=== PATIENT | female | born 1940 | race Caucasian/White ===

== ENCOUNTER 2018-12-18 13:17 | Emergency (ER) | payer MEDICARE ==
[~2018-12-18] VITALS: Ht 167.6 cm; Wt 120.0 kg
[2018-12-18] MEDS ORDERED: LORazepam 1 MG tablet PO ONE (14:05)
[2018-12-18] MEDS ORDERED: normal saline 1000ML IV soln IVB ONE (14:05)
[2018-12-18 14:35] LABS: CLARITY,URINE CLOUDY (Clear); COLOR,URINE YELLOW (Yellow); GLUCOSE, URINE NEGATIVE (Neg); KETONES,URINE NEGATIVE (Neg); LEUKOCYTE ESTERASE ,URINE NEGATIVE (Neg); NITRITES, URINE NEGATIVE (Neg); OCCULT BLOOD,URINE MODERATE (Neg); PH,URINE 5.5 (4.8-8.0); PROTEIN,URINE 30 mg/dl (Neg); UROBILINOGEN,URINE 0.2 E.U/dL (0.2-1.0)
[2018-12-18 14:43] LABS: UA COLLECTION TYPE STRAIGHT CATH
[2018-12-18 14:46] LABS: HYALINE CASTS 0-3 /LPF (NEGATIVE); MUCUS STRANDS FEW /LPF (Neg); RBC,URINE 50-100 /HPF (0-2); SQUAMOUS EPITHELIAL CELL,UR MODERATE /LPF (FEW); WBC,URINE 30-50 /HPF (0-4)
[2018-12-18 14:47] LABS: BACTERIA,URINE 2+ /HPF (Neg)
[2018-12-18 14:50] LABS: URINE AMPHETAMINE SCREEN NEGATIVE (Neg); URINE BARBITUATE SCREEN NEGATIVE (Neg); URINE BENZODIAZEPINES SCREEN NEGATIVE (Neg); URINE CANNABINOID SCREEN NEGATIVE (Neg); URINE COCAINE SCREEN NEGATIVE (Neg); URINE METHADONE SCREEN NEGATIVE (Neg); URINE OPIATE SCREEN NEGATIVE (Neg); URINE PHENCYCLIDINE SCREEN NEGATIVE (Neg)
[2018-12-18 14:54] LABS: BASOPHILS % (AUTO) 0.4 % (0-1); EOSINOPHILS % (AUTO) 0.4 % (0-6); HEMATOCRIT 39.5 % (35.0-45.0); HEMOGLOBIN 13.3 g/dl (12.0-16.0); LYMPHOCYTES # (AUTO) 0.9 X10'3 (1.1-4.8); LYMPHOCYTES % (AUTO) 8.9 % (21-51); MEAN CORPUSCULAR HEMOGLOBIN 32.9 PG (27.0-31.0); MEAN CORPUSCULAR HGB CONC 33.7 g/dL (33.0-36.5); MEAN CORPUSCULAR VOLUME 97.6 FL (78-98); MEAN PLATELET VOLUME 8.3 FL (7.4-10.4); MONOCYTES # (AUTO) 0.3 X10'3 (0-0.9); MONOCYTES % (AUTO) 3.1 % (2-12); NEUTROPHILS % (AUTO) 87.2 % (42-75); PLATELET COUNT 243 X10'3 (140-440); RED BLOOD COUNT 4.05 X10'6 (4.20-5.60); RED CELL DISTRIBUTION WIDTH 14.2 % (11.5-14.5); WHITE BLOOD COUNT 10.3 X10'3 (4.5-11.0)
--- NOTE | 2018-12-18 15:06 | NUR ---
Called in report to APS. Report was given to APS rep [place] at [phone]. Written report was also filled out.
[2018-12-18 15:07] LABS: ALANINE AMINOTRANSFERASE 13 U/L (12-78); ALBUMIN 3.1 G/DL (3.4-5.0); ALBUMIN/GLOBULIN RATIO 0.7 (1.1-1.5); ALKALINE PHOSPHATASE 97 IU/L (46-116); ANION GAP 9 (8-16); ASPARTATE AMINO TRANSFERASE 16 U/L (10-37); BILIRUBIN,TOTAL 0.7 MG/DL (0.1-1.0); BLOOD UREA NITROGEN 34 MG/DL (7-18); BUN/CREATININE RATIO 50.7 (6.6-38.0); CHLORIDE 109 MMOL/L (99-107); CREATININE 0.67 MG/DL (0.40-0.90); ETHANOL < 0.010 GM/DL (0.0-0.010); GLUCOSE 99 MG/DL (70-104); SODIUM 143 MMOL/L (135-145); TOTAL CARBON DIOXIDE 25.1 MMOL/L (24-32); TOTAL PROTEIN 7.5 G/DL (6.4-8.2); eGFR 86 ML/MIN
--- NOTE | 2018-12-18 16:01 | NUR ---
ESTEFANI Miller aware Step daughter at bedside, stated no need for further social media campaign manager at this time.
--- NOTE | 2018-12-18 16:46 | NUR ---
Telephone call to Margoth FARLEY, will come speak with step daughter at bedside.
--- NOTE | 2018-12-18 17:45 | NUR ---
CM Margoth in to speak with patient's step daughter at this time.
[2018-12-18 18:12] VITALS: BP 157/70
== END 2018-12-18 18:14 | disposition home or self-care (01) ==
LOC: ER 13:17
DX: R45.1 Restlessness and agitation (principal); N39.0 Urinary tract infection, site not specified; F20.9 Schizophrenia, unspecified; R41.0 Disorientation, unspecified; Z60.2 Problems related to living alone; Z88.6 Allergy status to analgesic agent
CPT/HCPCS: 36415; 70450; 71045; 80053; 80305; 80320; 81001; 82948; 85025; 87088; 93005; 96360; 96361; 99284; J7030; P9612

== ENCOUNTER 2019-10-13 17:57 | Inpatient (IN) | payer MEDICARE, OTHER ==
[~2019-10-13] VITALS: Ht 167.6 cm; Wt 52.0 kg
[2019-10-13] MEDS ORDERED: acetaminophen 325mg tablet PO ONE (18:30)
[2019-10-13 18:46] LABS: BASOPHILS # (AUTO) 0.1 X10'3 (0-0.2); BASOPHILS % (AUTO) 0.6 % (0-1); EOSINOPHILS % (AUTO) 0.3 % (0-6); HEMATOCRIT 36.4 % (35.0-45.0); LYMPHOCYTES # (AUTO) 1.9 X10'3 (1.1-4.8); LYMPHOCYTES % (AUTO) 14.1 % (21-51); MEAN CORPUSCULAR HEMOGLOBIN 31.9 PG (27.0-31.0); MEAN CORPUSCULAR HGB CONC 33.1 g/dL (33.0-36.5); MEAN CORPUSCULAR VOLUME 96.6 FL (78-98); MEAN PLATELET VOLUME 7.8 FL (7.4-10.4); MONOCYTES # (AUTO) 0.9 X10'3 (0-0.9); MONOCYTES % (AUTO) 6.6 % (2-12); NEUTROPHILS # (AUTO) 10.3 X10'3 (1.8-7.7); NEUTROPHILS % (AUTO) 78.4 % (42-75); PLATELET COUNT 258 X10'3 (140-440); RED BLOOD COUNT 3.77 X10'6 (4.20-5.60); WHITE BLOOD COUNT 13.2 X10'3 (4.5-11.0)
[2019-10-13 19:01] LABS: ALANINE AMINOTRANSFERASE 26 U/L (12-78); ALBUMIN 3.5 G/DL (3.4-5.0); ALBUMIN/GLOBULIN RATIO 0.8 (1.1-1.5); ALKALINE PHOSPHATASE 104 IU/L (46-116); ANION GAP 10 (8-16); ASPARTATE AMINO TRANSFERASE 19 U/L (10-37); BILIRUBIN,TOTAL 0.7 MG/DL (0.1-1.0); BLOOD UREA NITROGEN 23 MG/DL (7-18); BUN/CREATININE RATIO 26.7 (6.6-38.0); CALCIUM 9.4 MG/DL (8.5-10.1); CHLORIDE 104 MMOL/L (99-107); CREATININE 0.86 MG/DL (0.40-0.90); GLUCOSE 127 MG/DL (70-104); POTASSIUM 4.2 MMOL/L (3.5-5.1); SODIUM 138 MMOL/L (135-145); TOTAL CARBON DIOXIDE 24.2 MMOL/L (24-32); TOTAL PROTEIN 7.9 G/DL (6.4-8.2); eGFR 64 ML/MIN
--- NOTE | 2019-10-13 19:30 | NUR ---
CN: [phone] CONTACTED SO FOR MORE INFORMATION ON DAUGHTER AND THE ALLEGED ASSUALT. PLANNING FOR DISCHARGE
--- NOTE | 2019-10-13 19:39 | NUR ---
Spoke who SO who was on scene. He observed a clean and tidy home where the patient lives. He stated that patient's duaghter is seeking conservetorship of patient. He added that the daughter seem responisible and generally concerned about her care.
[2019-10-13] MEDS: NICOTINE POLACRILEX 2 MG LOZENGE BC PRN ×2 (19:52→23:38)
[2019-10-13 20:02] LABS: CLARITY,URINE CLOUDY (Clear); COLOR,URINE YELLOW (Yellow); GLUCOSE, URINE NEGATIVE (Neg); KETONES,URINE NEGATIVE (Neg); LEUKOCYTE ESTERASE ,URINE LARGE (Neg); NITRITES, URINE NEGATIVE (Neg); OCCULT BLOOD,URINE MODERATE (Neg); PROTEIN,URINE 30 mg/dl (Neg); UROBILINOGEN,URINE 0.2 E.U/dL (0.2-1.0)
[2019-10-13 20:05] LABS: UA COLLECTION TYPE CLN CATCH MIDSTREAM
[2019-10-13 20:10] LABS: BACTERIA,URINE 3+ /HPF (Neg); RBC,URINE NONE SEEN /HPF (0-2); SQUAMOUS EPITHELIAL CELL,UR MANY /LPF (FEW)
[2019-10-13] MEDS ORDERED: normal saline 1000ml 1,000 ML IV ONE (20:15)
[2019-10-13] MEDS ORDERED: CefTRIAXone/D5W-Rocephin 1gm 50 ML IV ONE (20:15)
[2019-10-13] MEDS ORDERED: acetaminophen 325mg tablet PO PRN (21:05)
[2019-10-13] MEDS ORDERED: ondansetron/PF 4mg/2ml inj IV PRN (21:05)
[2019-10-13] MEDS ORDERED: mag hydrox/Alum hydrox/simeth 30ml oral suspension PO PRN (21:05)
[2019-10-13] MEDS ORDERED: TRAM50TA2 PO (21:26)
[2019-10-13] MEDS ORDERED: ATEN25TA PO (21:26)
[2019-10-13] MEDS ORDERED: CIPR500T5 PO (21:31)
[2019-10-13] MEDS ORDERED: RISP0.253 PO (21:31)
[2019-10-13] MEDS ORDERED: LISI1TAB51 PO (21:31)
[2019-10-13] MEDS: normal saline 1000ml 1,000 ML IV SCH (21:38)
[2019-10-13] MEDS: risperiDONE 0.5mg tablet PO SCH (22:02)
[2019-10-13] MEDS: HYDROcodone/acetaminophen 5mg/325mg tablet PO PRN (22:03)
[2019-10-13 22:55] VITALS: BP 165/62
--- NOTE | 2019-10-13 22:55 | NUR ---
PATIENT ADMITTED TO ROOM 357A FROM ER FOR UTI, CONFUSION AND UNSAFE. PLACED COMFORTABLE IN BED. VITAL SIGNS TAKEN AND RECORDED.
[2019-10-14] MEDS: normal saline 1000ml 1,000 ML IV SCH ×2 (05:33→17:02)
--- NOTE | 2019-10-14 06:30 | NUR ---
Problems reprioritized. Patient report given, questions answered & plan of care reviewed with LEIGH AGUILERA.
[2019-10-14 06:55] LABS: BASOPHILS # (AUTO) 0.1 X10'3 (0-0.2); BASOPHILS % (AUTO) 0.8 % (0-1); EOSINOPHILS # (AUTO) 0.3 X10'3 (0-0.9); EOSINOPHILS % (AUTO) 3.2 % (0-6); HEMATOCRIT 32.7 % (35.0-45.0); LYMPHOCYTES # (AUTO) 2.3 X10'3 (1.1-4.8); LYMPHOCYTES % (AUTO) 25.9 % (21-51); MEAN CORPUSCULAR HEMOGLOBIN 32.9 PG (27.0-31.0); MEAN CORPUSCULAR HGB CONC 33.5 g/dL (33.0-36.5); MEAN CORPUSCULAR VOLUME 98.3 FL (78-98); MEAN PLATELET VOLUME 7.7 FL (7.4-10.4); MONOCYTES # (AUTO) 0.8 X10'3 (0-0.9); NEUTROPHILS # (AUTO) 5.5 X10'3 (1.8-7.7); NEUTROPHILS % (AUTO) 61.1 % (42-75); PLATELET COUNT 213 X10'3 (140-440); RED BLOOD COUNT 3.33 X10'6 (4.20-5.60); RED CELL DISTRIBUTION WIDTH 14.1 % (11.5-14.5)
[2019-10-14 07:00] VITALS: BP 153/68
[2019-10-14 07:10] LABS: ALANINE AMINOTRANSFERASE 20 U/L (12-78); ALBUMIN 2.8 G/DL (3.4-5.0); ALBUMIN/GLOBULIN RATIO 0.7 (1.1-1.5); ALKALINE PHOSPHATASE 86 IU/L (46-116); ANION GAP 9 (8-16); ASPARTATE AMINO TRANSFERASE 10 U/L (10-37); BILIRUBIN,TOTAL 0.6 MG/DL (0.1-1.0); BLOOD UREA NITROGEN 16 MG/DL (7-18); BUN/CREATININE RATIO 21.3 (6.6-38.0); CALCIUM 8.9 MG/DL (8.5-10.1); CHLORIDE 110 MMOL/L (99-107); CREATININE 0.75 MG/DL (0.40-0.90); GLUCOSE 95 MG/DL (70-104); POTASSIUM 4.1 MMOL/L (3.5-5.1); SODIUM 144 MMOL/L (135-145); TOTAL CARBON DIOXIDE 24.7 MMOL/L (24-32); TOTAL PROTEIN 6.7 G/DL (6.4-8.2); eGFR 75 ML/MIN
[2019-10-14] MEDS: heparin, porcine 5000 units/ml vial SQ SCH ×2 (08:57→19:51)
[2019-10-14] MEDS: atenolol 25mg tablet PO SCH (08:58)
[2019-10-14 11:00] VITALS: BP 127/69
[2019-10-14] MEDS: HYDROcodone/acetaminophen 5mg/325mg tablet PO PRN ×2 (14:15→20:00)
[2019-10-14] MEDS: baclofen 10mg tablet PO PRN (14:15)
--- NOTE | 2019-10-14 18:29 | NUR ---
Problems reprioritized. Patient report given, questions answered & plan of care reviewed with ALE Mane.
--- NOTE | 2019-10-14 18:30 | NUR ---
Patient in room [facility] 357. I have received report from LEIGH AGUILERA and had the opportunity to ask questions and assume patient care.
[2019-10-14] MEDS: lactobacillus rhamnosus 10,000 MMU CELLS/CAPSULE PO SCH (19:51)
[2019-10-14] MEDS: mineral oil/petrolatum, white cream 113gm jar TP SCH (19:52)
[2019-10-14 20:00] VITALS: BP 129/49
[2019-10-14] MEDS: risperiDONE 0.5mg tablet PO SCH (20:00)
[2019-10-14] MEDS ORDERED: CefTRIAXone/D5W-Rocephin 1gm 50 ML IV SCH (20:00)
[2019-10-15] VITALS: BP 111/49
[2019-10-15] MEDS: normal saline 1000ml 1,000 ML IV SCH (00:19)
[2019-10-15 06:07] LABS: BASOPHILS % (AUTO) 0.5 % (0-1); EOSINOPHILS # (AUTO) 0.3 X10'3 (0-0.9); EOSINOPHILS % (AUTO) 3.2 % (0-6); HEMATOCRIT 31.7 % (35.0-45.0); HEMOGLOBIN 10.7 g/dl (12.0-16.0); LYMPHOCYTES # (AUTO) 1.9 X10'3 (1.1-4.8); MEAN CORPUSCULAR HEMOGLOBIN 33.1 PG (27.0-31.0); MEAN CORPUSCULAR HGB CONC 33.8 g/dL (33.0-36.5); MEAN CORPUSCULAR VOLUME 97.9 FL (78-98); MEAN PLATELET VOLUME 8.2 FL (7.4-10.4); MONOCYTES # (AUTO) 0.9 X10'3 (0-0.9); MONOCYTES % (AUTO) 9.7 % (2-12); NEUTROPHILS % (AUTO) 65.6 % (42-75); PLATELET COUNT 200 X10'3 (140-440); RED BLOOD COUNT 3.24 X10'6 (4.20-5.60); WHITE BLOOD COUNT 9.1 X10'3 (4.5-11.0)
--- NOTE | 2019-10-15 06:15 | NUR ---
Problems reprioritized. Patient report given, questions answered & plan of care reviewed with LEIGH AGUILERA.
[2019-10-15 06:17] LABS: ALANINE AMINOTRANSFERASE 14 U/L (12-78); ALBUMIN 2.7 G/DL (3.4-5.0); ALBUMIN/GLOBULIN RATIO 0.7 (1.1-1.5); ALKALINE PHOSPHATASE 76 IU/L (46-116); ANION GAP 9 (8-16); ASPARTATE AMINO TRANSFERASE 12 U/L (10-37); BILIRUBIN,TOTAL 0.4 MG/DL (0.1-1.0); BLOOD UREA NITROGEN 14 MG/DL (7-18); BUN/CREATININE RATIO 25.5 (6.6-38.0); CALCIUM 8.6 MG/DL (8.5-10.1); CHLORIDE 111 MMOL/L (99-107); CREATININE 0.55 MG/DL (0.40-0.90); GLUCOSE 91 MG/DL (70-104); POTASSIUM 3.8 MMOL/L (3.5-5.1); SODIUM 143 MMOL/L (135-145); TOTAL PROTEIN 6.4 G/DL (6.4-8.2); eGFR > 90 ML/MIN
[2019-10-15 07:00] VITALS: BP 157/56
[2019-10-15] MEDS: heparin, porcine 5000 units/ml vial SQ SCH ×3 (08:00→19:40)
[2019-10-15] MEDS: lactobacillus rhamnosus 10,000 MMU CELLS/CAPSULE PO SCH ×2 (08:40→19:35)
[2019-10-15] MEDS: atenolol 25mg tablet PO SCH (08:41)
[2019-10-15] MEDS: mineral oil/petrolatum, white cream 113gm jar TP SCH ×2 (08:42→19:39)
[2019-10-15] MEDS: HYDROcodone/acetaminophen 5mg/325mg tablet PO PRN ×2 (12:18→19:35)
[2019-10-15] MEDS: baclofen 10mg tablet PO PRN (12:18)
--- NOTE | 2019-10-15 18:29 | NUR ---
Problems reprioritized. Patient report given, questions answered & plan of care reviewed with ALE Mane.
--- NOTE | 2019-10-15 18:30 | NUR ---
Patient in room [facility] 357. I have received report from LEIGH AGUILERA and had the opportunity to ask questions and assume patient care.
[2019-10-15] MEDS: NICOTINE POLACRILEX 2 MG LOZENGE BC PRN (18:49)
[2019-10-15 19:24] LABS: CLARITY,URINE CLOUDY (Clear); COLOR,URINE YELLOW (Yellow); GLUCOSE, URINE NEGATIVE (Neg); KETONES,URINE TRACE mg/dl (Neg); LEUKOCYTE ESTERASE ,URINE MODERATE (Neg); NITRITES, URINE NEGATIVE (Neg); OCCULT BLOOD,URINE LARGE (Neg); PH,URINE 5.5 (4.8-8.0); PROTEIN,URINE 100 mg/dl (Neg); UROBILINOGEN,URINE 0.2 E.U/dL (0.2-1.0)
[2019-10-15 19:25] LABS: UA COLLECTION TYPE CLN CATCH MIDSTREAM
[2019-10-15 19:26] LABS: BACTERIA,URINE 3+ /HPF (Neg); SQUAMOUS EPITHELIAL CELL,UR MODERATE /LPF (FEW)
[2019-10-15 19:36] VITALS: BP 126/67
[2019-10-15] MEDS: risperiDONE 0.5mg tablet PO SCH (19:36)
[2019-10-16 00:21] VITALS: BP 160/77
[2019-10-16] MEDS: HYDROcodone/acetaminophen 5mg/325mg tablet PO PRN (01:21)
--- NOTE | 2019-10-16 06:27 | NUR ---
Problems reprioritized. Patient report given, questions answered & plan of care reviewed with TENISHA AGUILERA.
[2019-10-16 06:50] LABS: BASOPHILS # (AUTO) 0.1 X10'3 (0-0.2); BASOPHILS % (AUTO) 0.5 % (0-1); EOSINOPHILS # (AUTO) 0.1 X10'3 (0-0.9); EOSINOPHILS % (AUTO) 0.6 % (0-6); HEMATOCRIT 32.3 % (35.0-45.0); HEMOGLOBIN 10.7 g/dl (12.0-16.0); LYMPHOCYTES # (AUTO) 1.3 X10'3 (1.1-4.8); MEAN CORPUSCULAR HEMOGLOBIN 32.2 PG (27.0-31.0); MEAN CORPUSCULAR VOLUME 97.4 FL (78-98); MEAN PLATELET VOLUME 8.2 FL (7.4-10.4); MONOCYTES # (AUTO) 0.9 X10'3 (0-0.9); MONOCYTES % (AUTO) 5.4 % (2-12); NEUTROPHILS # (AUTO) 13.9 X10'3 (1.8-7.7); NEUTROPHILS % (AUTO) 85.5 % (42-75); PLATELET COUNT 184 X10'3 (140-440); RED BLOOD COUNT 3.32 X10'6 (4.20-5.60); RED CELL DISTRIBUTION WIDTH 13.6 % (11.5-14.5); WHITE BLOOD COUNT 16.3 X10'3 (4.5-11.0)
[2019-10-16 07:00] VITALS: BP 142/67
[2019-10-16 07:03] LABS: ALANINE AMINOTRANSFERASE 12 U/L (12-78); ALBUMIN 2.5 G/DL (3.4-5.0); ALBUMIN/GLOBULIN RATIO 0.6 (1.1-1.5); ALKALINE PHOSPHATASE 77 IU/L (46-116); ANION GAP 8 (8-16); ASPARTATE AMINO TRANSFERASE 9 U/L (10-37); BILIRUBIN,TOTAL 0.6 MG/DL (0.1-1.0); BLOOD UREA NITROGEN 15 MG/DL (7-18); BUN/CREATININE RATIO 22.1 (6.6-38.0); CALCIUM 8.5 MG/DL (8.5-10.1); CHLORIDE 108 MMOL/L (99-107); CREATININE 0.68 MG/DL (0.40-0.90); GLUCOSE 105 MG/DL (70-104); POTASSIUM 3.7 MMOL/L (3.5-5.1); SODIUM 139 MMOL/L (135-145); TOTAL CARBON DIOXIDE 22.9 MMOL/L (24-32); TOTAL PROTEIN 6.4 G/DL (6.4-8.2); eGFR 84 ML/MIN
--- NOTE | 2019-10-16 07:21 | NUR ---
PAGER ID: [phone] MESSAGE: Claudette Carr 357A Pt. new UA positive. No ABT ordered. Pt. developed low grade fever. Thank you - Ania [phone]
[2019-10-16] MEDS: lactobacillus rhamnosus 10,000 MMU CELLS/CAPSULE PO SCH ×2 (08:00→20:00)
[2019-10-16] MEDS: atenolol 25mg tablet PO SCH ×2 (08:00→10:15)
[2019-10-16] MEDS: heparin, porcine 5000 units/ml vial SQ SCH ×2 (08:00→20:00)
[2019-10-16] MEDS: mineral oil/petrolatum, white cream 113gm jar TP SCH ×2 (09:08→20:00)
--- NOTE | 2019-10-16 09:18 | NUR ---
PAGED SPEECH THERAPIST: Danie Fung ordered for Claudette Carr please call her "Nel". Attempted nursing swallow assessment. Pt. coughs while sipping small amount of liquid. Unable to swallow pills. Held water in mouth for some time before swallowing.
--- NOTE | 2019-10-16 09:34 | NUR ---
PAGER ID: [phone] MESSAGE: Claudette Carr [id number] Pt. states she want to be DNR or CC. Please assess Pt. for code status. Daughter bring in POLST. Pt. A&0 x1. Unable to swallow medications. Refusing heparin and MOM. Ania [phone]
[2019-10-16] MEDS: magnesium hydroxide 30ml (MOM) UD suspension PO PRN (10:15)
[2019-10-16 12:00] VITALS: BP 122/66
--- NOTE | 2019-10-16 12:00 | NUR ---
Spoke to MD Cardenas when he rounded about the pt's wish to be DNR. acknowledged this RN and stated he would assess pt. at a later time.
--- NOTE | 2019-10-16 12:17 | NUR ---
Spoke with Khalif ST. States pt. does not know to put head forward and "will choke" if not swallowing with head forward. Pt. also has "delayed swallowing" and must be coached to swallow. Pt. now a feeder. Sung made aware. Charge made aware. Khalif suggested pureed thin liquid diet. Order put in per protocol.
[2019-10-16] MEDS: CefTRIAXone/D5W-Rocephin 1gm 50 ML IV SCH (14:55)
[2019-10-16 18:00] VITALS: BP 138/58
--- NOTE | 2019-10-16 18:27 | NUR ---
Gave report to Meli AGUILERA. Pt. recently repositioned and cleaned. Eating dinner with no needs at this time.
--- NOTE | 2019-10-16 18:30 | NUR ---
Spoke with MD Cardenas over the phone. Stated he did not get the chance to talk to the pt. about code status. Stated he thought the pt. would be fine overnight, but if need be the night MD could address it as well. Otherwise MD Cardenas will address it in AM.
--- NOTE | 2019-10-16 18:41 | NUR ---
Patient in room [facility] 347. I have received report from Ania AGUILERA and had the opportunity to ask questions and assume patient care.
[2019-10-16] MEDS: risperiDONE 0.5mg tablet PO SCH (20:31)
[2019-10-17] VITALS: BP 145/67
--- NOTE | 2019-10-17 02:58 | NUR ---
pt refused all medications. pt refused cream on dry skin. Pt was educated about medication. pt was confused and yelled during assessment and pt yelled while being moved
--- NOTE | 2019-10-17 06:22 | NUR ---
Patient in room [facility] 357. I have received report from ALE Banerjee and had the opportunity to ask questions and assume patient care.
--- NOTE | 2019-10-17 06:26 | NUR ---
Problems reprioritized. Patient report given, questions answered & plan of care reviewed with Rosa Maria AGUILREA.
[2019-10-17 07:00] VITALS: BP 119/69
[2019-10-17] MEDS: heparin, porcine 5000 units/ml vial SQ SCH ×2 (08:00→20:00)
[2019-10-17] MEDS: mineral oil/petrolatum, white cream 113gm jar TP SCH ×2 (08:00→20:00)
[2019-10-17] MEDS: lactobacillus rhamnosus 10,000 MMU CELLS/CAPSULE PO SCH ×2 (08:00→20:10)
[2019-10-17] MEDS: CefTRIAXone/D5W-Rocephin 1gm 50 ML IV SCH (09:16)
[2019-10-17 11:36] VITALS: BP 123/72
[2019-10-17] MEDS: HYDROcodone/acetaminophen 5mg/325mg tablet PO PRN (12:24)
--- NOTE | 2019-10-17 12:30 | NUR ---
Pt offered milk of magnesia to assist with bowel movement. Pt states she feels like needs to go and does not want any at this time. Will continue to monitor.
[2019-10-17] MEDS: NICOTINE POLACRILEX 2 MG LOZENGE BC PRN ×2 (14:58→17:46)
--- NOTE | 2019-10-17 15:36 | NUR ---
Patient in room [facility] 357. I have received report from ALE CHAMPAGNE and had the opportunity to ask questions and assume patient care.
--- NOTE | 2019-10-17 15:37 | NUR ---
Problems reprioritized. Patient report given, questions answered & plan of care reviewed with ALE Lan.
[2019-10-17] MEDS: normal saline 1000ml 1,000 ML IV SCH (15:54)
[2019-10-17 18:00] VITALS: BP 126/58
--- NOTE | 2019-10-17 18:51 | NUR ---
Problems reprioritized. Patient report given, questions answered & plan of care reviewed with Julissa Banerjee. Pt resting comfortably. IV fluids running. pt voided 600ml of clear urine on BSC. Will cont to monitor.
--- NOTE | 2019-10-17 19:15 | NUR ---
Patient in room [facility] 348. I have received report from Edyta AGUILERA and had the opportunity to ask questions and assume patient care.
[2019-10-17] MEDS: risperiDONE 0.5mg tablet PO SCH (20:11)
[2019-10-18] VITALS: BP 147/64
[2019-10-18] MEDS: normal saline 1000ml 1,000 ML IV SCH ×2 (02:44→16:05)
[2019-10-18 05:24] LABS: ALANINE AMINOTRANSFERASE 16 U/L (12-78); ALBUMIN 2.2 G/DL (3.4-5.0); ALBUMIN/GLOBULIN RATIO 0.6 (1.1-1.5); ALKALINE PHOSPHATASE 83 IU/L (46-116); ANION GAP 10 (8-16); ASPARTATE AMINO TRANSFERASE 15 U/L (10-37); BILIRUBIN,TOTAL 0.3 MG/DL (0.1-1.0); BLOOD UREA NITROGEN 14 MG/DL (7-18); BUN/CREATININE RATIO 23.7 (6.6-38.0); CALCIUM 8.3 MG/DL (8.5-10.1); CHLORIDE 109 MMOL/L (99-107); CREATININE 0.59 MG/DL (0.40-0.90); GLUCOSE 88 MG/DL (70-104); POTASSIUM 3.9 MMOL/L (3.5-5.1); SODIUM 141 MMOL/L (135-145); TOTAL CARBON DIOXIDE 22.2 MMOL/L (24-32); TOTAL PROTEIN 6.1 G/DL (6.4-8.2); eGFR > 90 ML/MIN
[2019-10-18 06:10] LABS: BASOPHILS % (AUTO) 0.2 % (0-1); EOSINOPHILS # (AUTO) 0.4 X10'3 (0-0.9); EOSINOPHILS % (AUTO) 2.9 % (0-6); HEMATOCRIT 31.5 % (35.0-45.0); HEMOGLOBIN 10.5 g/dl (12.0-16.0); LYMPHOCYTES # (AUTO) 1.6 X10'3 (1.1-4.8); LYMPHOCYTES % (AUTO) 12.1 % (21-51); MEAN CORPUSCULAR HEMOGLOBIN 32.7 PG (27.0-31.0); MEAN CORPUSCULAR HGB CONC 33.2 g/dL (33.0-36.5); MEAN CORPUSCULAR VOLUME 98.5 FL (78-98); MONOCYTES % (AUTO) 7.6 % (2-12); NEUTROPHILS # (AUTO) 9.9 X10'3 (1.8-7.7); NEUTROPHILS % (AUTO) 77.2 % (42-75); PLATELET COUNT 214 X10'3 (140-440); RED CELL DISTRIBUTION WIDTH 13.8 % (11.5-14.5); WHITE BLOOD COUNT 12.9 X10'3 (4.5-11.0)
--- NOTE | 2019-10-18 06:23 | NUR ---
Patient in room [facility] 357. I have received report from ALE Banerjee and had the opportunity to ask questions and assume patient care.
--- NOTE | 2019-10-18 06:40 | NUR ---
Problems reprioritized. Patient report given, questions answered & plan of care reviewed with Rosa Maria AGUILERA.
[2019-10-18 07:00] VITALS: BP 133/64
[2019-10-18] MEDS: lactobacillus rhamnosus 10,000 MMU CELLS/CAPSULE PO SCH ×2 (07:53→20:09)
[2019-10-18] MEDS: atenolol 25mg tablet PO SCH (07:53)
[2019-10-18] MEDS: CefTRIAXone/D5W-Rocephin 1gm 50 ML IV SCH (07:54)
[2019-10-18] MEDS: heparin, porcine 5000 units/ml vial SQ SCH ×2 (08:00→20:13)
[2019-10-18] MEDS: mineral oil/petrolatum, white cream 113gm jar TP SCH ×2 (08:00→20:18)
[2019-10-18] MEDS ORDERED: MEROPENEM 1GM/NS 50ML IVPB 50 ML IV SCH (08:00)
[2019-10-18] MEDS: NICOTINE POLACRILEX 2 MG LOZENGE BC PRN ×2 (08:07→21:47)
[2019-10-18] MEDS: meropenem inj 1 GM in normal saline 100ml IV soln 100 ML IV SCH ×2 (08:54→16:05)
[2019-10-18] MEDS ORDERED: nicotine prolacrilex 4mg gum BC PRN (11:25)
[2019-10-18 12:46] VITALS: BP 130/44
--- NOTE | 2019-10-18 14:40 | NUR ---
Initial: Pt admit with UTI and metabolic encephalopathy with hx dementia. Currently documented as A/O x 2 and confused. Pt initially on a regular diet documented with 0% PO intake with meal refusals. Pt s/p BSS on 10/[address] recs pureed food with thin liquids d/t delay in swallow reflex and tends to tilt her head backward and multiple swallow attempts with solids. PO intake improved to average 25% PO intake with texture modification with two meal refusals. Pt documented to be receiving assistance with meals. Per physical assessment pt is resistive to care, fatigued, and unresponsive. Decreased mentation and resistiveness to care likely impacting PO intake. Pt may benefit from ONS once less resistive to care. D/w dietary to trial Ensure pudding, yogurt, and smoothies with meals. [facility] 10/17. Will continue to follow closely. Recommendations: 1) Continue pureed diet with thin liquids per ST recs 2) Assist with meals; encourage PO intake 3) Trial yogurt q breakfast, Ensure pudding q lunch, and smoothie q dinner 4) Monitor need for ONS 5) Bowel care PRN 6) Scaled weights per rx Addendum: 10/18/19 at [address] Amended: Links added.
[2019-10-18] MEDS: HYDROcodone/acetaminophen 5mg/325mg tablet PO PRN ×2 (15:23→20:10)
--- NOTE | 2019-10-18 18:13 | NUR ---
Problems reprioritized. Patient report given, questions answered & plan of care reviewed with ALE Banerjee.
[2019-10-18 18:15] VITALS: BP 122/61
--- NOTE | 2019-10-18 19:02 | NUR ---
Patient in room [facility] 348. I have received report from Rosa Maria AGUILERA and had the opportunity to ask questions and assume patient care.
[2019-10-18] MEDS: risperiDONE 0.5mg tablet PO SCH (20:09)
[2019-10-19] VITALS: BP 144/78
[2019-10-19] MEDS: meropenem inj 1 GM in normal saline 100ml IV soln 100 ML IV SCH ×3 (00:11→16:15)
[2019-10-19] MEDS: normal saline 1000ml 1,000 ML IV SCH ×2 (03:43→16:21)
--- NOTE | 2019-10-19 06:25 | NUR ---
Patient in room [facility] 357. I have received report from Lavonne AGUILERA and had the opportunity to ask questions and assume patient care.
--- NOTE | 2019-10-19 06:30 | NUR ---
Problems reprioritized. Patient report given, questions answered & plan of care reviewed with Marybel AGUILERA.
[2019-10-19 07:00] VITALS: BP 127/56
[2019-10-19] MEDS: mineral oil/petrolatum, white cream 113gm jar TP SCH ×3 (08:00→20:00)
[2019-10-19] MEDS: atenolol 25mg tablet PO SCH (08:30)
[2019-10-19] MEDS: lactobacillus rhamnosus 10,000 MMU CELLS/CAPSULE PO SCH ×2 (08:30→20:16)
[2019-10-19] MEDS: heparin, porcine 5000 units/ml vial SQ SCH ×3 (08:33→21:06)
--- NOTE | 2019-10-19 10:31 | NUR ---
Pt is cooperative however states she is at "a grocery store." When reminded she is at the hospital she stated she did not know she was at the hospital. She also is confused on who I am and thinks I am her friend from outside the hospital. According to the last progress not from 10/18/19, she does have dementia and this seems to be her baseline. Addendum: 10/19/19 at 1045 by Lalo MAZARIEGOS Amended: Links added.
[2019-10-19 11:00] VITALS: BP 153/83
[2019-10-19 12:00] VITALS: BP 153/83
[2019-10-19] MEDS: divalproex sod 125mg sprinkle cap PO SCH ×2 (12:30→17:30)
--- NOTE | 2019-10-19 13:44 | NUR ---
Pt had 50% of peach smoothie Addendum: 10/19/19 at 1344 by Lalo MAZARIEGOS Amended: Links added.
[2019-10-19] MEDS ORDERED: LORazepam 2 mg/ml vial IV PRN (14:05)
--- NOTE | 2019-10-19 14:18 | NUR ---
Patient refused Depakote, states leave me alone. Explained to patient that the MD came around and told staff to feed patient, patient states "I don't care."
--- NOTE | 2019-10-19 14:31 | NUR ---
Pt refused to eat Addendum: 10/19/19 at 1431 by Lalo Grimm STUDENT YAIR Amended: Links added.
--- NOTE | 2019-10-19 14:40 | NUR ---
Patient in room [facility] 357. I have received report from ALE oN and had the opportunity to ask questions and assume patient care.
--- NOTE | 2019-10-19 14:53 | NUR ---
Problems reprioritized. Patient report given, questions answered & plan of care reviewed with Barbara RN.
--- NOTE | 2019-10-19 16:28 | NUR ---
Upon entering patient's room and attempting patient care including pulling her up in bed and repositioning her/turning, patient refused multiple times despite encouraging her to comply with care.
--- NOTE | 2019-10-19 17:23 | NUR ---
Pt states she wants "to be left alone." Addendum: 10/19/19 at 1725 by Lalo MAZARIEGOS Amended: Links added.
--- NOTE | 2019-10-19 18:25 | NUR ---
Patient in room [facility] 357. I have received report from Alberto (student) & Barbara RN and had the opportunity to ask questions and assume patient care.
--- NOTE | 2019-10-19 18:35 | NUR ---
Problems reprioritized. Patient report given, questions answered & plan of care reviewed with Honey RN & ALE Belcher.
[2019-10-19] MEDS: risperiDONE 0.5mg tablet PO SCH (20:17)
[2019-10-19 20:30] VITALS: BP 167/79
[2019-10-19] MEDS: HYDROcodone/acetaminophen 5mg/325mg tablet PO PRN (20:55)
[2019-10-19] MEDS: NICOTINE POLACRILEX 2 MG LOZENGE BC PRN (21:06)
[2019-10-20] VITALS: BP 113/54
--- NOTE | 2019-10-20 06:27 | NUR ---
Patient in room [facility] 357. I have received report from Pat RN and had the opportunity to ask questions and assume patient care.
[2019-10-20 06:32] LABS: BASOPHILS % (AUTO) 0.5 % (0-1); EOSINOPHILS # (AUTO) 0.3 X10'3 (0-0.9); EOSINOPHILS % (AUTO) 5.7 % (0-6); HEMATOCRIT 30.8 % (35.0-45.0); HEMOGLOBIN 10.2 g/dl (12.0-16.0); LYMPHOCYTES % (AUTO) 33.6 % (21-51); MEAN CORPUSCULAR HEMOGLOBIN 32.2 PG (27.0-31.0); MEAN CORPUSCULAR VOLUME 97.6 FL (78-98); MEAN PLATELET VOLUME 7.8 FL (7.4-10.4); MONOCYTES # (AUTO) 0.5 X10'3 (0-0.9); MONOCYTES % (AUTO) 8.6 % (2-12); NEUTROPHILS # (AUTO) 3.1 X10'3 (1.8-7.7); NEUTROPHILS % (AUTO) 51.6 % (42-75); PLATELET COUNT 229 X10'3 (140-440); RED BLOOD COUNT 3.16 X10'6 (4.20-5.60); RED CELL DISTRIBUTION WIDTH 13.5 % (11.5-14.5)
[2019-10-20] MEDS: normal saline 1000ml 1,000 ML IV SCH ×2 (06:42→21:11)
[2019-10-20 06:52] LABS: ALANINE AMINOTRANSFERASE 11 U/L (12-78); ALBUMIN 2.1 G/DL (3.4-5.0); ALBUMIN/GLOBULIN RATIO 0.6 (1.1-1.5); ALKALINE PHOSPHATASE 84 IU/L (46-116); ANION GAP 8 (8-16); ASPARTATE AMINO TRANSFERASE 10 U/L (10-37); BILIRUBIN,TOTAL 0.4 MG/DL (0.1-1.0); BLOOD UREA NITROGEN 9 MG/DL (7-18); BUN/CREATININE RATIO 17.3 (6.6-38.0); CALCIUM 8.6 MG/DL (8.5-10.1); CHLORIDE 112 MMOL/L (99-107); CREATININE 0.52 MG/DL (0.40-0.90); GLUCOSE 79 MG/DL (70-104); POTASSIUM 3.5 MMOL/L (3.5-5.1); SODIUM 144 MMOL/L (135-145); TOTAL CARBON DIOXIDE 23.8 MMOL/L (24-32); TOTAL PROTEIN 5.8 G/DL (6.4-8.2); eGFR > 90 ML/MIN
[2019-10-20 07:00] VITALS: BP 139/70
[2019-10-20] MEDS: mineral oil/petrolatum, white cream 113gm jar TP SCH ×2 (08:00→21:14)
[2019-10-20] MEDS: heparin, porcine 5000 units/ml vial SQ SCH (08:00)
[2019-10-20] MEDS: divalproex sod 125mg sprinkle cap PO SCH ×3 (08:08→17:50)
[2019-10-20] MEDS: lactobacillus rhamnosus 10,000 MMU CELLS/CAPSULE PO SCH ×2 (08:11→20:19)
[2019-10-20] MEDS: HYDROcodone/acetaminophen 5mg/325mg tablet PO PRN ×3 (08:12→17:49)
[2019-10-20] MEDS: NICOTINE POLACRILEX 2 MG LOZENGE BC PRN ×4 (08:13→20:19)
[2019-10-20] MEDS: meropenem inj 1 GM in normal saline 100ml IV soln 100 ML IV SCH ×4 (08:15→15:28)
[2019-10-20 08:26] VITALS: BP 139/70
[2019-10-20] MEDS: atenolol 25mg tablet PO SCH (08:27)
--- NOTE | 2019-10-20 09:59 | NUR ---
Pt is cooperative this am, she did refuse heparin and eucerin cream, however she took all oral medications. She also informed me that she was incontinent this am and allowed me to change her briefs, absorbant pad, gown, and turn her. Addendum: 10/20/19 at 1009 by Lalo MAZARIEGOS Amended: Links added.
--- NOTE | 2019-10-20 10:04 | NUR ---
Pt refused to sit up so I could listen posteriorly. Addendum: 10/20/19 at 1009 by Lalo MAZARIEGOS Amended: Links added.
--- NOTE | 2019-10-20 10:05 | NUR ---
MARY placed Addendum: 10/20/19 at 1009 by Lalo Grimm STUDENT YAIR Amended: Links added.
[2019-10-20 11:00] VITALS: BP 149/82
[2019-10-20 11:37] VITALS: BP 149/82
--- NOTE | 2019-10-20 11:54 | NUR ---
Student documentation and Medication Administration I have reviewed all interventions, assessments performed and documented, all medication-pass' for the time frame [id number], all medication were reviewed, dispensed, administered and documented per hospital policy by Lalo HALL from [facility].
--- NOTE | 2019-10-20 11:55 | NUR ---
Patient working with PT, transferring OOB to chair. Patient is yelling a lot but willing to work with PT currently. Addendum: 10/20/19 at 1157 by Marybel Minaya RN Amended: Links added.
--- NOTE | 2019-10-20 18:36 | NUR ---
Patient in room [facility] 357. I have received report from Marybel AGUILERA and had the opportunity to ask questions and assume patient care.
--- NOTE | 2019-10-20 18:36 | NUR ---
Patient in room [facility] 357. I have received report from Marybel AGUILERA and had the opportunity to ask questions and assume patient care.
--- NOTE | 2019-10-20 18:36 | NUR ---
Problems reprioritized. Patient report given, questions answered & plan of care reviewed with Meli AGUILERA.
[2019-10-20 20:00] VITALS: BP 152/70
[2019-10-20] MEDS: risperiDONE 0.5mg tablet PO SCH (20:20)
--- NOTE | 2019-10-20 21:50 | NUR ---
Problems reprioritized. Patient report given, questions answered & plan of care reviewed with Leighann Lawton RN.
--- NOTE | 2019-10-20 22:00 | NUR ---
Patient in room [facility] 357. I have received report from CHE AGUILERA and had the opportunity to ask questions and assume patient care.
[2019-10-21] VITALS: BP 149/83
[2019-10-21] MEDS: meropenem inj 1 GM in normal saline 100ml IV soln 100 ML IV SCH ×4 (00:57→23:58)
[2019-10-21] MEDS: HYDROcodone/acetaminophen 5mg/325mg tablet PO PRN (05:46)
--- NOTE | 2019-10-21 06:30 | NUR ---
Problems reprioritized. Patient report given, questions answered & plan of care reviewed with IVÁN AGUILERA.
--- NOTE | 2019-10-21 06:33 | NUR ---
Patient in room [facility] 357A. I have received report from RUPA GOODE RN and had the opportunity to ask questions and assume patient care.
[2019-10-21] MEDS: atenolol 25mg tablet PO SCH (08:00)
[2019-10-21] MEDS: mineral oil/petrolatum, white cream 113gm jar TP SCH ×2 (08:00→20:00)
[2019-10-21] MEDS: lactobacillus rhamnosus 10,000 MMU CELLS/CAPSULE PO SCH ×2 (08:00→21:09)
[2019-10-21 08:14] VITALS: BP 118/64
[2019-10-21] MEDS: divalproex sod 125mg sprinkle cap PO SCH ×3 (08:30→18:04)
[2019-10-21] MEDS: normal saline 1000ml 1,000 ML IV SCH ×2 (09:45→21:12)
[2019-10-21 11:00] VITALS: BP 142/75
--- NOTE | 2019-10-21 14:39 | NUR ---
Reassessment: Pt with UTI secondary to MDRO E. coli per MD notes. Pt s/p f/u BSS 10/[address] recs diet advancement to MM5/mechanical soft grind all food with thin liquids. Pt continues with fluctuating PO intake, documented with 100% PO intake of protein only s/p diet advancement, now averaging 50%, up from 25% average. Pt continues to be documented as A/O x 2 and confused. Attempted bedside visit with pt however pt sleeping. Pt documented to be consuming smoothie at times. LBM 10/19. Pt awaiting placement per MD notes. Will continue to follow closely and monitor need for further nutrition intervention. Recommendations: 1) Continue MM5/mechanical soft grind all diet with thin liquids per ST recs 2) Assist with meals; encourage PO intake 3) Trial yogurt q breakfast, Ensure pudding q lunch, and smoothie q dinner 4) Monitor need for ONS 5) Bowel care PRN 6) Scaled weights per rx Addendum: 10/21/19 at [address] Amended: Links added.
--- NOTE | 2019-10-21 17:14 | NUR ---
PATIENT REFUSED TO LET ME ASSESS HER CHARTED WHAT I SAW Addendum: 10/21/19 at 1720 by Carlene Foote RN Amended: Links added.
--- NOTE | 2019-10-21 17:30 | NUR ---
NOTICED IN 1500 HOUR THAT PATIENT HAD NOT URINATED, PATIENT WAS CHECKED AND BLADDER SCANNED, 130 ML IN BLADDER SEEN BY BLADDER SCANNER, FURTHER INSPECTION OF FERMÍN PAD REVEALED INC URINE. DR CALLED AND FLUIDS INCREASED TO 100ML/HR
--- NOTE | 2019-10-21 18:34 | NUR ---
Patient in room [facility] 340. I have received report from Amanda AGUILERA and had the opportunity to ask questions and assume patient care. Addendum: 10/21/19 at 1835 by Lavonne Rust RN Patient in room [facility] 340. I have received report from Carlene AGUILERA and had the opportunity to ask questions and assume patient care.
--- NOTE | 2019-10-21 19:08 | NUR ---
Problems reprioritized. Patient report given, questions answered & plan of care reviewed with ALE BOBBY.
[2019-10-21 20:08] VITALS: BP 124/72
[2019-10-21] MEDS: risperiDONE 0.5mg tablet PO SCH (21:10)
[2019-10-22] VITALS: BP 137/75
--- NOTE | 2019-10-22 06:32 | NUR ---
Problems reprioritized. Patient report given, questions answered & plan of care reviewed with Sandy AGUILERA.
--- NOTE | 2019-10-22 06:33 | NUR ---
Patient in room [facility] 357. I have received report from ALE Banerjee and had the opportunity to ask questions and assume patient care.
[2019-10-22] MEDS: mineral oil/petrolatum, white cream 113gm jar TP SCH ×2 (08:00→20:00)
[2019-10-22 08:14] VITALS: BP 157/91
[2019-10-22] MEDS: meropenem inj 1 GM in normal saline 100ml IV soln 100 ML IV SCH ×3 (08:30→23:33)
[2019-10-22] MEDS: lactobacillus rhamnosus 10,000 MMU CELLS/CAPSULE PO SCH ×2 (08:30→20:18)
[2019-10-22] MEDS: divalproex sod 125mg sprinkle cap PO SCH ×3 (08:30→17:05)
[2019-10-22] MEDS: atenolol 25mg tablet PO SCH (08:30)
[2019-10-22] MEDS: normal saline 1000ml 1,000 ML IV SCH ×2 (08:31→19:54)
[2019-10-22 12:24] VITALS: BP 173/90
[2019-10-22] MEDS: HYDROcodone/acetaminophen 5mg/325mg tablet PO PRN ×2 (12:24→17:28)
[2019-10-22 18:00] VITALS: BP 141/70
--- NOTE | 2019-10-22 18:33 | NUR ---
Problems reprioritized. Patient report given, questions answered & plan of care reviewed with ALE Banerjee.
--- NOTE | 2019-10-22 18:48 | NUR ---
Patient in room [facility] 356. I have received report from Sandy AGUILERA and had the opportunity to ask questions and assume patient care.
[2019-10-22] MEDS: risperiDONE 0.5mg tablet PO SCH (20:19)
[2019-10-23] VITALS: BP 169/87
[2019-10-23] MEDS: normal saline 1000ml 1,000 ML IV SCH ×3 (01:42→21:23)
[2019-10-23 02:00] VITALS: BP 161/79
[2019-10-23] MEDS: HYDROcodone/acetaminophen 5mg/325mg tablet PO PRN ×3 (04:28→21:28)
[2019-10-23] MEDS: NICOTINE POLACRILEX 2 MG LOZENGE BC PRN (04:30)
--- NOTE | 2019-10-23 06:17 | NUR ---
Patient in room [facility] 357. I have received report from ALE Banerjee and had the opportunity to ask questions and assume patient care.
--- NOTE | 2019-10-23 06:42 | NUR ---
Problems reprioritized. Patient report given, questions answered & plan of care reviewed with Sandy AGUILERA.
[2019-10-23 07:30] VITALS: BP_SYST 183; BP_SYST 202; BP_DIAS 112; BP_DIAS 116
[2019-10-23] MEDS: divalproex sod 125mg sprinkle cap PO SCH ×3 (07:41→17:26)
[2019-10-23] MEDS: lactobacillus rhamnosus 10,000 MMU CELLS/CAPSULE PO SCH ×2 (07:41→21:25)
[2019-10-23] MEDS: atenolol 25mg tablet PO SCH (07:43)
[2019-10-23] MEDS: meropenem inj 1 GM in normal saline 100ml IV soln 100 ML IV SCH ×2 (07:44→16:59)
[2019-10-23] MEDS: mineral oil/petrolatum, white cream 113gm jar TP SCH ×2 (07:50→21:27)
[2019-10-23 11:00] VITALS: BP 140/79
[2019-10-23 18:00] VITALS: BP 139/74
--- NOTE | 2019-10-23 18:06 | NUR ---
Problems reprioritized. Patient report given, questions answered & plan of care reviewed with ALE Banerjee.
--- NOTE | 2019-10-23 18:43 | NUR ---
Patient in room [facility] 345. I have received report from Sandy AGUILERA and had the opportunity to ask questions and assume patient care.
[2019-10-23] MEDS: risperiDONE 0.5mg tablet PO SCH (21:25)
[2019-10-24] VITALS: BP 140/72
[2019-10-24] MEDS: meropenem inj 1 GM in normal saline 100ml IV soln 100 ML IV SCH ×4 (00:03→23:43)
--- NOTE | 2019-10-24 06:20 | NUR ---
Patient in room [facility] 357A. I have received report from ALE BOBBY and had the opportunity to ask questions and assume patient care.
--- NOTE | 2019-10-24 06:35 | NUR ---
Problems reprioritized. Patient report given, questions answered & plan of care reviewed with Carlene AGUILERA.
[2019-10-24] MEDS: mineral oil/petrolatum, white cream 113gm jar TP SCH ×2 (08:00→20:00)
[2019-10-24] MEDS: lactobacillus rhamnosus 10,000 MMU CELLS/CAPSULE PO SCH ×2 (08:00→20:00)
[2019-10-24] MEDS: atenolol 25mg tablet PO SCH (08:00)
[2019-10-24] MEDS: divalproex sod 125mg sprinkle cap PO SCH ×3 (08:00→17:30)
[2019-10-24] MEDS: normal saline 1000ml 1,000 ML IV SCH ×3 (11:25→23:43)
--- NOTE | 2019-10-24 15:10 | NUR ---
Reassessment: Pt continues with fluctuating PO intake, documented with 75-100% PO intake at dinner 10/20, 75% at dinner 10/21, 50-75% PO intake at breakfast and lunch 10/22, and with 0% or meal refusals for breakfast and lunch 10/21 and dinner 10/22. Pt documented as A/O x 2, confused, agitated, and resistive to care. Pt documented to be receiving assistance with meals. LBM 10/19 though documented as a smear with last moderate BM being 10/18. Current mentation and constipation likely impacting PO intake. Pt last received PRN bowel care 10/15. D/w dietary to send prune juice and power pudding with next meal to assist with bowel regularity. Will continue to follow closely and monitor need for further appropriate nutrition intervention. Recommendations: 1) Continue MM5/mechanical soft grind all diet with thin liquids per ST recs 2) Assist with meals; encourage PO intake 3) Trial yogurt q breakfast, Ensure pudding q lunch, and smoothie q dinner 4) Monitor need for ONS 5) Routine bowel care 6) Scaled weights per rx Addendum: 10/24/19 at [address] Amended: Links added.
--- NOTE | 2019-10-24 17:30 | NUR ---
PATIENT IS VERY RESISTIVE TO CARE, REFUSED ALL ORAL MEDS, AND WOULD NOT LET ME ASSESS HER IN THE MORNING WHILE ASSISTING THE PATIENT WITH HER LUNCH SHE WOULD ONLY EAT THE PUDDING AND DRANK ABOUT 120ML OF WATER, SHE THEN ALLOWED ME TO ASSESS HER BUT WOULD NOT TAKE DEEP BREATHS FOR ME TO ASSESS THE POSTERIOR SIDE OF LUNGS. PATIENT WOULD NOT LET ME OR THE AIDES TO TAKE HER VITALS. PATIENT EDUCATED ON BENEFITS OF THERAPIES AND CARE.
[2019-10-24 18:00] VITALS: BP 144/68
--- NOTE | 2019-10-24 18:55 | NUR ---
Problems reprioritized. Patient report given, questions answered & plan of care reviewed with ALE DELCID.
[2019-10-24] MEDS: risperiDONE 0.5mg tablet PO SCH (21:00)
[2019-10-25] MEDS: HYDROcodone/acetaminophen 5mg/325mg tablet PO PRN ×3 (02:05→16:45)
--- NOTE | 2019-10-25 06:41 | NUR ---
Problems reprioritized. Patient report given, questions answered & plan of care reviewed with TENISHA AGUILERA.
[2019-10-25] MEDS: atenolol 25mg tablet PO SCH (08:00)
[2019-10-25] MEDS: lactobacillus rhamnosus 10,000 MMU CELLS/CAPSULE PO SCH ×2 (08:00→20:00)
[2019-10-25] MEDS: divalproex sod 125mg sprinkle cap PO SCH ×3 (08:00→16:44)
[2019-10-25] MEDS: mineral oil/petrolatum, white cream 113gm jar TP SCH ×2 (08:00→20:00)
--- NOTE | 2019-10-25 08:00 | NUR ---
Pt. refused AM vitals to be taken. Yelled out, "Your hurting me!!"
[2019-10-25] MEDS: meropenem inj 1 GM in normal saline 100ml IV soln 100 ML IV SCH ×3 (08:54→23:43)
[2019-10-25] MEDS: normal saline 1000ml 1,000 ML IV SCH (10:21)
[2019-10-25 11:50] VITALS: BP 127/64
[2019-10-25] MEDS: baclofen 10mg tablet PO PRN (12:36)
[2019-10-25 18:00] VITALS: BP 140/73
--- NOTE | 2019-10-25 18:06 | NUR ---
Gave report to Ye AGUILERA.
[2019-10-25] MEDS: risperiDONE 0.5mg tablet PO SCH (20:21)
--- NOTE | 2019-10-25 23:27 | NUR ---
Patient IV fell out around 1914. Repeated attempts at starting a new one until Addendum: 10/25/19 at 2332 by Ye Moore RN Incomplete note: Patient IV fell out around 1914. There were repeated attempts to start a new one until 2314, however patient refused with increasing verbal agitation and emotion. Paged Dr. Henderson about patient refusal. Stated that she couldn't switch abx to PO, so there wasn't much she could do "but if the patient refuses a new IV, there isn't much you could do either." Attempted to educate patient on risks of not receiving abx, patient distracted by the thought of an IV and did not verbalize understanding of risks. Will continue to monitor.
[2019-10-25] MEDS: NICOTINE POLACRILEX 2 MG LOZENGE BC PRN (23:37)
[2019-10-26] VITALS: BP 153/79
[2019-10-26] MEDS: normal saline 1000ml 1,000 ML IV SCH ×3 (03:54→23:54)
[2019-10-26] MEDS: HYDROcodone/acetaminophen 5mg/325mg tablet PO PRN ×3 (04:22→23:33)
--- NOTE | 2019-10-26 06:54 | NUR ---
Patient in room [facility] 357. I have received report from ALE Belcher and had the opportunity to ask questions and assume patient care.
[2019-10-26 08:00] VITALS: BP 120/65
[2019-10-26] MEDS: meropenem inj 1 GM in normal saline 100ml IV soln 100 ML IV SCH (08:00)
[2019-10-26] MEDS: mineral oil/petrolatum, white cream 113gm jar TP SCH ×2 (08:46→19:47)
[2019-10-26] MEDS: divalproex sod 125mg sprinkle cap PO SCH ×3 (08:46→17:49)
[2019-10-26] MEDS: lactobacillus rhamnosus 10,000 MMU CELLS/CAPSULE PO SCH ×2 (08:46→19:45)
[2019-10-26] MEDS: atenolol 25mg tablet PO SCH (08:48)
--- NOTE | 2019-10-26 10:37 | NUR ---
Pt removed PIV last night. refusing to have new IV place. Unable to give 0800 IV ABX. informed.
[2019-10-26 12:00] VITALS: BP 99/51
[2019-10-26] MEDS: NICOTINE POLACRILEX 2 MG LOZENGE BC PRN ×3 (14:36→23:26)
[2019-10-26] MEDS ORDERED: amoxicillin/clavulanate potass. 1000/62.5mg TAB.SR.12h PO SCH (17:30)
--- NOTE | 2019-10-26 18:35 | NUR ---
Problems reprioritized. Patient report given, questions answered & plan of care reviewed with ALE Romero.
--- NOTE | 2019-10-26 18:38 | NUR ---
Patient in room [facility] 357. I have received report from Dina AGUILERA and had the opportunity to ask questions and assume patient care.
[2019-10-26 19:30] VITALS: BP 143/74
[2019-10-26] MEDS: amox tr/potassium clavulanate 875/125mg TAB PO SCH (19:45)
[2019-10-26] MEDS: risperiDONE 0.5mg tablet PO SCH (19:57)
[2019-10-27] VITALS: BP 145/86
--- NOTE | 2019-10-27 06:30 | NUR ---
Patient in room [facility] 357. I have received report from ALE Romero and had the opportunity to ask questions and assume patient care.
--- NOTE | 2019-10-27 06:35 | NUR ---
Problems reprioritized. Patient report given, questions answered & plan of care reviewed with Dina AGUILERA.
[2019-10-27 08:00] VITALS: BP 145/81
[2019-10-27] MEDS: amox tr/potassium clavulanate 875/125mg TAB PO SCH ×2 (08:56→20:00)
[2019-10-27] MEDS: divalproex sod 125mg sprinkle cap PO SCH ×3 (08:56→17:50)
[2019-10-27] MEDS: mineral oil/petrolatum, white cream 113gm jar TP SCH ×2 (08:57→20:00)
[2019-10-27] MEDS: atenolol 25mg tablet PO SCH (08:57)
[2019-10-27] MEDS: lactobacillus rhamnosus 10,000 MMU CELLS/CAPSULE PO SCH ×2 (08:58→20:00)
[2019-10-27 12:00] VITALS: BP 100/52
--- NOTE | 2019-10-27 18:27 | NUR ---
Problems reprioritized. Patient report given, questions answered & plan of care reviewed with ALE STAHL.
--- NOTE | 2019-10-27 18:30 | NUR ---
Patient in room [facility] 357. I have received report from Dian AGUILERA and had the opportunity to ask questions and assume patient care.
[2019-10-27 19:30] VITALS: BP 108/62
[2019-10-27] MEDS: risperiDONE 0.5mg tablet PO SCH (21:00)
[2019-10-28] VITALS: BP 126/64
--- NOTE | 2019-10-28 04:18 | NUR ---
Called pharmacist about patients augmentin and risperidone that pt. never received as sleeping so hard. Pharmacist advised to just skip the dose now as pt. will be getting abx again at 0800, and risperidone HS only.
--- NOTE | 2019-10-28 06:20 | NUR ---
Patient in room [facility] 357. I have received report from SHARMILA AGUILERA and had the opportunity to ask questions and assume patient care.
--- NOTE | 2019-10-28 06:30 | NUR ---
Problems reprioritized. Patient report given, questions answered & plan of care reviewed with Marybel AGUILERA.
--- NOTE | 2019-10-28 06:32 | NUR ---
Patient in room [facility] 357. I have received report from FAVIO AGUILERA and had the opportunity to ask questions and assume patient care.
[2019-10-28 08:30] VITALS: BP 131/79
[2019-10-28] MEDS: divalproex sod 125mg sprinkle cap PO SCH ×3 (08:34→19:57)
[2019-10-28] MEDS: amox tr/potassium clavulanate 875/125mg TAB PO SCH (08:35)
[2019-10-28] MEDS: atenolol 25mg tablet PO SCH (08:35)
[2019-10-28] MEDS: mineral oil/petrolatum, white cream 113gm jar TP SCH ×2 (08:40→20:00)
[2019-10-28] MEDS: lactobacillus rhamnosus 10,000 MMU CELLS/CAPSULE PO SCH ×2 (08:43→19:55)
[2019-10-28] MEDS: NICOTINE POLACRILEX 2 MG LOZENGE BC PRN (12:53)
[2019-10-28] MEDS: normal saline 1000ml 1,000 ML IV SCH (14:58)
[2019-10-28] MEDS: HYDROcodone/acetaminophen 5mg/325mg tablet PO PRN ×2 (15:12→19:56)
--- NOTE | 2019-10-28 16:07 | NUR ---
Reassessment: PO intake continues to fluctuate, documented up to 75-100% PO intake however 0% at dinner last night and 25-50% PO intake today. Pt continues to be documented as A/O x 2, confused, agitated, and resistive to care. Pt documented to be receiving max/total assistance with meals. LBM 10/25 documented as large following no significant BM x 6 days prior. D/w dietary to send prune juice and power pudding with next meal to continue bowel regularity to prevent decreased appetite secondary to constipation. Will continue to follow closely and monitor need for further nutrition intervention. Recommendations: 1) Continue MM5/mechanical soft grind all diet with thin liquids per ST recs 2) Assist with meals; encourage PO intake 3) Trial yogurt q breakfast, Ensure pudding q lunch, and smoothie q dinner 4) Monitor need for ONS 5) Routine bowel care 6) Scaled weights per rx Addendum: 10/28/19 at [address] Amended: Links added.
[2019-10-28 17:50] VITALS: BP 153/77
--- NOTE | 2019-10-28 18:04 | NUR ---
Student documentation: I have reviewed and agree with all interventions, assessments performed and documented by .
--- NOTE | 2019-10-28 18:04 | NUR ---
Problems reprioritized. Patient report given, questions answered & plan of care reviewed with Maura AGUILERA.
--- NOTE | 2019-10-28 18:05 | NUR ---
Student documentation: I have reviewed and agree with all interventions, assessments performed and documented by Mili RN. Student Medication Administration: For this medication-pass time frame, all medication were reviewed, dispensed, administered and documented per hospital policy by Mili RN.
--- NOTE | 2019-10-28 18:15 | NUR ---
Patient in room [facility] 357. I have received report from Marybel AGUILERA and had the opportunity to ask questions and assume patient care.
[2019-10-28] MEDS: risperiDONE 0.5mg tablet PO SCH (20:00)
[2019-10-29] VITALS: BP 143/78
--- NOTE | 2019-10-29 06:12 | NUR ---
Problems reprioritized. Patient report given, questions answered & plan of care reviewed with Amanda AGUILERA.
--- NOTE | 2019-10-29 06:19 | NUR ---
Patient in room [facility] 357. I have received report from Maura AGUILERA and had the opportunity to ask questions and assume patient care.
[2019-10-29 07:00] VITALS: BP 120/63
[2019-10-29] MEDS: mineral oil/petrolatum, white cream 113gm jar TP SCH ×2 (08:00→20:00)
[2019-10-29] MEDS: divalproex sod 125mg sprinkle cap PO SCH ×3 (08:00→20:08)
[2019-10-29] MEDS: atenolol 25mg tablet PO SCH (08:00)
[2019-10-29] MEDS: lactobacillus rhamnosus 10,000 MMU CELLS/CAPSULE PO SCH ×2 (08:00→20:08)
--- NOTE | 2019-10-29 09:45 | NUR ---
Pt continues to refuse a.m. meds, refuse a.m. assessment and refuses position change. Pt educated, states "why don't you just leave me alone". notified.
--- NOTE | 2019-10-29 09:49 | NUR ---
PAGER ID: [phone] MESSAGE: re: [id number], Claudette Thomas (Madelyn). Pt refused a.m. meds, refuses a.m. assessment, refuses position changes. Amanda huntley [phone]. thank you
[2019-10-29 12:00] VITALS: BP 129/76
--- NOTE | 2019-10-29 18:15 | NUR ---
Problems reprioritized. Patient report given, questions answered & plan of care reviewed with Maura Costa.
--- NOTE | 2019-10-29 18:27 | NUR ---
Patient in room [facility] 357. I have received report from Amanda AGUILERA and had the opportunity to ask questions and assume patient care.
[2019-10-29 20:00] VITALS: BP 152/77
[2019-10-29] MEDS: HYDROcodone/acetaminophen 5mg/325mg tablet PO PRN (20:08)
[2019-10-29] MEDS: risperiDONE 0.5mg tablet PO SCH (20:10)
[2019-10-30] VITALS: BP 127/58
--- NOTE | 2019-10-30 06:15 | NUR ---
Problems reprioritized. Patient report given, questions answered & plan of care reviewed with Ann Marie AGUILERA.
[2019-10-30 07:00] VITALS: BP 120/62
[2019-10-30] MEDS: divalproex sod 125mg sprinkle cap PO SCH ×3 (07:25→16:30)
[2019-10-30] MEDS: lactobacillus rhamnosus 10,000 MMU CELLS/CAPSULE PO SCH ×2 (07:25→20:00)
[2019-10-30] MEDS: atenolol 25mg tablet PO SCH (07:26)
[2019-10-30] MEDS: HYDROcodone/acetaminophen 5mg/325mg tablet PO PRN ×2 (07:26→13:30)
[2019-10-30] MEDS: mineral oil/petrolatum, white cream 113gm jar TP SCH ×2 (07:29→20:00)
[2019-10-30 12:29] VITALS: BP 106/46
[2019-10-30 18:00] VITALS: BP 139/72
--- NOTE | 2019-10-30 18:15 | NUR ---
Gave report to Ye Costa.
[2019-10-30] MEDS: risperiDONE 0.5mg tablet PO SCH (20:00)
[2019-10-31] VITALS: BP 142/70
[2019-10-31 07:00] VITALS: BP 159/94
[2019-10-31] MEDS: mineral oil/petrolatum, white cream 113gm jar TP SCH ×2 (07:02→20:00)
[2019-10-31] MEDS: lactobacillus rhamnosus 10,000 MMU CELLS/CAPSULE PO SCH ×2 (07:03→19:14)
[2019-10-31] MEDS: HYDROcodone/acetaminophen 5mg/325mg tablet PO PRN ×2 (07:03→15:21)
[2019-10-31] MEDS: divalproex sod 125mg sprinkle cap PO SCH ×3 (07:03→16:23)
[2019-10-31] MEDS: atenolol 25mg tablet PO SCH (07:04)
[2019-10-31] MEDS: NICOTINE POLACRILEX 2 MG LOZENGE BC PRN ×2 (10:06→19:14)
[2019-10-31 10:10] VITALS: BP 110/57
[2019-10-31 11:03] VITALS: BP 98/58
--- NOTE | 2019-10-31 16:51 | NUR ---
Reassessment: Pt continues with fluctuating PO intake, documented with 75-100% and refusals since last RD assessment 10/27. Pt continues receiving assistance with meals as pt A/O x 1, confused, agitated, fatigued, and resistive to care. Recommend Ensure Enlive to optimize PO intake. ONS to be sent pending MD approval in EMR. LBM 10/30. Pt awaiting placement per MD notes. Will continue to follow closely and monitor need for further nutrition intervention. Recommendations: 1) Continue MM5/mechanical soft grind all diet with thin liquids per ST recs 2) Assist with meals; encourage PO intake 3) Trial yogurt q breakfast, Ensure pudding q lunch, and smoothie q dinner 4) Ensure Enlive TID, pending MD approval in EMR 5) Routine bowel care 6) Scaled weights per rx Addendum: 10/31/19 at [address] Amended: Links added.
[2019-10-31 18:15] VITALS: BP 106/62
--- NOTE | 2019-10-31 18:17 | NUR ---
Gave report to Shea AGUILERA
--- NOTE | 2019-10-31 18:43 | NUR ---
Patient in room [facility] 357. I have received report from ALE Jorge and had the opportunity to ask questions and assume patient care.
[2019-10-31] MEDS: risperiDONE 0.5mg tablet PO SCH (22:09)
[2019-11-01 00:04] VITALS: BP 103/53
[2019-11-01] MEDS: NICOTINE POLACRILEX 2 MG LOZENGE BC PRN (01:38)
--- NOTE | 2019-11-01 03:50 | NUR ---
Patient has had multiple voids in bsc throughout shift. Pt states that she has discomfort and some pain when urinating. Output: 200 mL, bladder scan performed, 0 mL, post void residual. Called Dr. Vasquez and received order for UA with culture if indicated. Will obtain sample during next void and send to lab.
--- NOTE | 2019-11-01 06:31 | NUR ---
Patient in room [facility] 357. I have received report from ALE Garcia and had the opportunity to ask questions and assume patient care.
--- NOTE | 2019-11-01 06:31 | NUR ---
Problems reprioritized. Patient report given, questions answered & plan of care reviewed with ALE Delgado.
[2019-11-01 06:51] VITALS: BP 163/83
[2019-11-01] MEDS: divalproex sod 125mg sprinkle cap PO SCH ×3 (07:55→18:36)
[2019-11-01] MEDS: lactobacillus rhamnosus 10,000 MMU CELLS/CAPSULE PO SCH ×2 (07:55→20:29)
[2019-11-01] MEDS: HYDROcodone/acetaminophen 5mg/325mg tablet PO PRN (07:56)
[2019-11-01] MEDS: atenolol 25mg tablet PO SCH (07:57)
[2019-11-01] MEDS: mineral oil/petrolatum, white cream 113gm jar TP SCH ×2 (08:00→20:00)
[2019-11-01 11:00] VITALS: BP 84/47
[2019-11-01 14:31] LABS: CLARITY,URINE SLIGHTLY CLOUDY (Clear); COLOR,URINE YELLOW (Yellow); GLUCOSE, URINE NEGATIVE (Neg); KETONES,URINE NEGATIVE (Neg); LEUKOCYTE ESTERASE ,URINE SMALL (Neg); NITRITES, URINE POSITIVE (Neg); OCCULT BLOOD,URINE TRACE-INTACT (Neg); PROTEIN,URINE NEGATIVE (Neg); UA COLLECTION TYPE VOIDED
[2019-11-01 14:43] LABS: BACTERIA,URINE 4+ /HPF (Neg); MUCUS STRANDS FEW /LPF (Neg); RBC,URINE 0-2 /HPF (0-2); SQUAMOUS EPITHELIAL CELL,UR FEW /LPF (FEW)
[2019-11-01 18:00] VITALS: BP 121/65
--- NOTE | 2019-11-01 18:30 | NUR ---
Problems reprioritized. Patient report given, questions answered & plan of care reviewed with ALE Belcher.
--- NOTE | 2019-11-01 18:32 | NUR ---
Problems reprioritized. Patient report given, questions answered & plan of care reviewed with ALE Belcher.
[2019-11-01] MEDS: risperiDONE 0.5mg tablet PO SCH (20:29)
[2019-11-02] VITALS: BP 103/64
--- NOTE | 2019-11-02 06:51 | NUR ---
Patient in room [facility] 357. I have received report from ALE Belcher and had the opportunity to ask questions and assume patient care.
[2019-11-02] MEDS: lactobacillus rhamnosus 10,000 MMU CELLS/CAPSULE PO SCH ×2 (08:00→20:01)
[2019-11-02] MEDS: divalproex sod 125mg sprinkle cap PO SCH ×3 (08:00→18:05)
[2019-11-02] MEDS: mineral oil/petrolatum, white cream 113gm jar TP SCH ×2 (08:00→20:01)
--- NOTE | 2019-11-02 09:23 | NUR ---
pt sleeping. attempted to give AM meds x3. Pt. refused
[2019-11-02 12:00] VITALS: BP 146/73
--- NOTE | 2019-11-02 12:08 | NUR ---
Pt refused AM med. STODDARD informed.
[2019-11-02] MEDS: atenolol 25mg tablet PO SCH (14:31)
[2019-11-02] MEDS: NICOTINE POLACRILEX 2 MG LOZENGE BC PRN ×2 (14:52→20:06)
--- NOTE | 2019-11-02 18:17 | NUR ---
Patient in room [facility] 357. I have received report from Dina AGUILERA and had the opportunity to ask questions and assume patient care.
[2019-11-02 18:30] VITALS: BP 150/91
--- NOTE | 2019-11-02 18:40 | NUR ---
Problems reprioritized. Patient report given, questions answered & plan of care reviewed with ALE Romero.
[2019-11-02] MEDS: risperiDONE 0.5mg tablet PO SCH (20:02)
[2019-11-03] VITALS: BP 160/86
[2019-11-03 06:29] VITALS: BP 146/65
--- NOTE | 2019-11-03 06:40 | NUR ---
Problems reprioritized. Patient report given, questions answered & plan of care reviewed with Kate Costa.
[2019-11-03] MEDS: lactobacillus rhamnosus 10,000 MMU CELLS/CAPSULE PO SCH ×2 (07:52→20:21)
[2019-11-03] MEDS: divalproex sod 125mg sprinkle cap PO SCH ×3 (07:52→17:43)
[2019-11-03] MEDS: atenolol 25mg tablet PO SCH (07:57)
[2019-11-03] MEDS: mineral oil/petrolatum, white cream 113gm jar TP SCH ×3 (07:58→20:20)
[2019-11-03 10:35] VITALS: BP 121/74
[2019-11-03 18:00] VITALS: BP 137/93
[2019-11-03] MEDS ORDERED: lactose-reduced food (Ensure Enlive) - 237ml bottle PO SCH (18:00)
--- NOTE | 2019-11-03 18:09 | NUR ---
PAGER ID: [phone] MESSAGE: Kate Surg [id number] Re: [id number] Bruno Re: MDRO and Ecoli in urine please call
[2019-11-03] MEDS: NICOTINE POLACRILEX 2 MG LOZENGE BC PRN (18:56)
--- NOTE | 2019-11-03 18:58 | NUR ---
Problems reprioritized. Patient report given, questions answered & plan of care reviewed with Sandee Méndez RN.
--- NOTE | 2019-11-03 20:20 | NUR ---
Patient refusing physical assessment and administration of Eucerin cream. Took all other medications as prescribed.
[2019-11-03] MEDS: HYDROcodone/acetaminophen 5mg/325mg tablet PO PRN (20:21)
[2019-11-03] MEDS: risperiDONE 0.5mg tablet PO SCH (20:21)
[2019-11-04] VITALS: BP 135/80
--- NOTE | 2019-11-04 06:37 | NUR ---
Problems reprioritized. Patient report given, questions answered & plan of care reviewed with ALE Love.
--- NOTE | 2019-11-04 06:39 | NUR ---
Patient in room [facility]. I have received report from Sandee Méndez RN and had the opportunity to ask questions and assume patient care.
[2019-11-04 06:42] VITALS: BP 118/58
[2019-11-04] MEDS: mineral oil/petrolatum, white cream 113gm jar TP SCH ×2 (08:00→20:00)
[2019-11-04] MEDS: HYDROcodone/acetaminophen 5mg/325mg tablet PO PRN ×2 (09:01→19:18)
[2019-11-04] MEDS: divalproex sod 125mg sprinkle cap PO SCH ×3 (09:01→18:14)
[2019-11-04] MEDS: lactobacillus rhamnosus 10,000 MMU CELLS/CAPSULE PO SCH ×2 (09:01→19:17)
[2019-11-04] MEDS: atenolol 25mg tablet PO SCH (09:12)
[2019-11-04 10:40] VITALS: BP 94/48
[2019-11-04] MEDS: NICOTINE POLACRILEX 2 MG LOZENGE BC PRN ×2 (12:23→20:58)
--- NOTE | 2019-11-04 15:20 | NUR ---
Reassessment: No significant changes in PO intake, documented with average 75-100% PO intake with refusal of two meals since last RD assessment (10/30). Still pending ONS approval from MD in EMR. LBM 10/31, d/w dietary to send prune juice with next meal to assist with bowel regularity. Pt awaiting placement per physician notes. Will continue to follow closely. Recommendations: 1) Continue MM5/mechanical soft grind all diet with thin liquids per ST recs 2) Assist with meals; encourage PO intake 3) Yogurt q breakfast, Ensure pudding q lunch, and smoothie TID 4) Ensure Enlive TID, pending MD approval in EMR 5) Routine bowel care 6) Scaled weights per rx Addendum: 11/04/19 at [address] Amended: Links added.
--- NOTE | 2019-11-04 18:24 | NUR ---
Patient in room [facility]. I have received report from ALE Love and had the opportunity to ask questions and assume patient care.
--- NOTE | 2019-11-04 18:34 | NUR ---
Problems reprioritized. Patient report given, questions answered & plan of care reviewed with Sandee Méndez RN.
[2019-11-04] MEDS: risperiDONE 2mg tablet PO SCH (19:18)
[2019-11-04 20:00] VITALS: BP 137/68
[2019-11-05] VITALS: BP 119/62
--- NOTE | 2019-11-05 06:35 | NUR ---
Problems reprioritized. Patient report given, questions answered & plan of care reviewed with ALE Crane.
--- NOTE | 2019-11-05 06:38 | NUR ---
Patient in room [facility]. I have received report from Agata Méndez RN and had the opportunity to ask questions and assume patient care.
[2019-11-05 07:30] VITALS: BP 159/73
[2019-11-05] MEDS: lactose-reduced food (Ensure Enlive) - 237ml bottle PO SCH ×3 (08:00→18:01)
[2019-11-05] MEDS: mineral oil/petrolatum, white cream 113gm jar TP SCH ×2 (08:00→20:31)
[2019-11-05] MEDS: lactobacillus rhamnosus 10,000 MMU CELLS/CAPSULE PO SCH ×2 (08:55→20:31)
[2019-11-05] MEDS: divalproex sod 125mg sprinkle cap PO SCH ×3 (08:55→18:05)
[2019-11-05] MEDS: atenolol 25mg tablet PO SCH (08:56)
--- NOTE | 2019-11-05 09:27 | NUR ---
Patient in room [facility]. I have received report from ALE Crane and had the opportunity to ask questions and assume patient care.
--- NOTE | 2019-11-05 09:37 | NUR ---
Problems reprioritized. Patient report given, questions answered & plan of care reviewed with ALE Herndon.
[2019-11-05 11:00] VITALS: BP 109/64
--- NOTE | 2019-11-05 18:42 | NUR ---
Problems reprioritized. Patient report given, questions answered & plan of care reviewed with ALE Shukla.
--- NOTE | 2019-11-05 18:45 | NUR ---
Patient in room [facility]. I have received report from VICENTE AGUILERA and had the opportunity to ask questions and assume patient care.
[2019-11-05 20:00] VITALS: BP 94/47
[2019-11-05] MEDS: risperiDONE 2mg tablet PO SCH (20:31)
[2019-11-05] MEDS: NICOTINE POLACRILEX 2 MG LOZENGE BC PRN (20:39)
[2019-11-06] VITALS: BP 103/60
--- NOTE | 2019-11-06 06:30 | NUR ---
Problems reprioritized. Patient report given, questions answered & plan of care reviewed with GÓMEZ AGUILERA.
--- NOTE | 2019-11-06 06:43 | NUR ---
Patient in room [facility]. I have received report from Antonietta AGUILERA and had the opportunity to ask questions and assume patient care.
[2019-11-06 07:00] VITALS: BP 122/62
[2019-11-06] MEDS: mineral oil/petrolatum, white cream 113gm jar TP SCH ×2 (08:00→20:00)
[2019-11-06] MEDS: divalproex sod 125mg sprinkle cap PO SCH ×4 (08:00→17:51)
[2019-11-06] MEDS: lactobacillus rhamnosus 10,000 MMU CELLS/CAPSULE PO SCH ×3 (08:00→20:19)
[2019-11-06] MEDS: atenolol 25mg tablet PO SCH ×2 (08:00→12:45)
[2019-11-06] MEDS: lactose-reduced food (Ensure Enlive) - 237ml bottle PO SCH ×3 (08:00→18:24)
--- NOTE | 2019-11-06 10:12 | NUR ---
PATIENT REFUSED MEDICATION AND BREAKFAST THIS AM. STATES SHE WANTS TO BE LEFT ALONE. WILL CONTINUE TO MONITOR.
[2019-11-06 11:00] VITALS: BP 120/73
--- NOTE | 2019-11-06 12:49 | NUR ---
patient agreed to take meds at this time.
[2019-11-06] MEDS: NICOTINE POLACRILEX 2 MG LOZENGE BC PRN (18:01)
[2019-11-06 18:15] VITALS: BP 149/74
--- NOTE | 2019-11-06 18:24 | NUR ---
Problems reprioritized. Patient report given, questions answered & plan of care reviewed with ender AGUILERA.
--- NOTE | 2019-11-06 18:46 | NUR ---
Patient in room [facility]. I have received report from ALE Sanford and had the opportunity to ask questions and assume patient care.
[2019-11-06] MEDS: risperiDONE 2mg tablet PO SCH (20:19)
[2019-11-07 00:15] VITALS: BP 140/73
[2019-11-07] MEDS: HYDROcodone/acetaminophen 5mg/325mg tablet PO PRN ×2 (00:56→17:29)
--- NOTE | 2019-11-07 06:29 | NUR ---
Problems reprioritized. Patient report given, questions answered & plan of care reviewed with ALE Delgado.
--- NOTE | 2019-11-07 06:39 | NUR ---
Patient in room [facility]. I have received report from ALE Valdivia and had the opportunity to ask questions and assume patient care.
[2019-11-07 07:00] VITALS: BP 93/57
[2019-11-07] MEDS: mineral oil/petrolatum, white cream 113gm jar TP SCH ×2 (08:00→20:00)
[2019-11-07] MEDS: lactose-reduced food (Ensure Enlive) - 237ml bottle PO SCH ×3 (08:00→18:23)
[2019-11-07] MEDS: lactobacillus rhamnosus 10,000 MMU CELLS/CAPSULE PO SCH ×3 (09:27→22:15)
[2019-11-07] MEDS: atenolol 25mg tablet PO SCH (09:28)
[2019-11-07 11:00] VITALS: BP 121/81
[2019-11-07] MEDS: divalproex sod 125mg sprinkle cap PO SCH ×2 (13:48→17:29)
--- NOTE | 2019-11-07 16:26 | NUR ---
Reassessment: Pt with more fluctuating PO intake, documented with 75-100% PO intake down to 0-25% since 11/05. Pt now receiving Ensure Enlive TID, initially with 75-100% PO intake down to refusing 11/05 and 25% PO intake of ONS today. Pt now documented to be independent with meals, pt would benefit from assistance given fluctuations in PO intake and pt confused and A/O x 1 per physical assessment. LBM 11/05, documented as large. Will continue to follow closely. Recommendations: 1) Continue MM5/mechanical soft grind all diet with thin liquids per ST recs 2) Assist with meals; encourage PO intake 3) Yogurt q breakfast, Ensure pudding q lunch, and smoothie TID 4) Ensure Enlive TID 5) Routine bowel care 6) Scaled weights per rx Addendum: 11/07/19 at [address] Amended: Links added.
[2019-11-07 18:00] VITALS: BP 139/71
--- NOTE | 2019-11-07 18:15 | NUR ---
Problems reprioritized. Patient report given, questions answered & plan of care reviewed with ALE Valdivia.
--- NOTE | 2019-11-07 18:32 | NUR ---
Patient in room [facility]. I have received report from ALE Delgado and had the opportunity to ask questions and assume patient care.
--- NOTE | 2019-11-07 18:35 | NUR ---
Patient in room [facility]. I have received report from ALE Delgado and had the opportunity to ask questions and assume patient care.
[2019-11-07] MEDS: risperiDONE 2mg tablet PO SCH (22:15)
[2019-11-08 00:01] VITALS: BP 145/64
[2019-11-08] MEDS: HYDROcodone/acetaminophen 5mg/325mg tablet PO PRN ×2 (04:42→13:35)
--- NOTE | 2019-11-08 06:10 | NUR ---
Patient in room [facility]. I have received report from ALE Valdivia and had the opportunity to ask questions and assume patient care.
[2019-11-08 06:30] VITALS: BP 126/68
--- NOTE | 2019-11-08 06:33 | NUR ---
Problems reprioritized. Patient report given, questions answered & plan of care reviewed with ALE Jimenez.
[2019-11-08] MEDS: lactose-reduced food (Ensure Enlive) - 237ml bottle PO SCH ×3 (08:00→18:00)
[2019-11-08] MEDS: lactobacillus rhamnosus 10,000 MMU CELLS/CAPSULE PO SCH ×2 (10:31→20:00)
[2019-11-08] MEDS: atenolol 25mg tablet PO SCH (10:31)
[2019-11-08] MEDS: divalproex sod 125mg sprinkle cap PO SCH ×3 (10:31→18:09)
[2019-11-08] MEDS: mineral oil/petrolatum, white cream 113gm jar TP SCH ×2 (10:32→20:00)
--- NOTE | 2019-11-08 11:24 | NUR ---
Pt refused VS
[2019-11-08 12:00] VITALS: BP 127/59
--- NOTE | 2019-11-08 16:30 | NUR ---
Dr Henderson notified of pt declining status ie not eating, drinking, mostly sleeping & @ times can be a bit difficult to arouse.
--- NOTE | 2019-11-08 17:20 | NUR ---
notified pt refused labs.
[2019-11-08 18:00] VITALS: BP 121/57
--- NOTE | 2019-11-08 18:15 | NUR ---
Problems reprioritized. Patient report given, questions answered & plan of care reviewed with ALE Valdivia.
--- NOTE | 2019-11-08 18:21 | NUR ---
Patient in room [facility]. I have received report from ALE Jimenez and had the opportunity to ask questions and assume patient care.
--- NOTE | 2019-11-08 21:00 | NUR ---
Pt appears to be drinking less fluids and eating less than 50% of meals. VSS: 97.6 temp, 63 hr, 94% RA, 121/57 BP, 0/10 pain. Discussed with patient importance of staying hydrated. Advised with pt that an IV may be need to be placed to administer fluid. Pt states it hurts and refuses at this time. Will address with retail presentation specialist physician.
[2019-11-08] MEDS: risperiDONE 2mg tablet PO SCH (21:12)
--- NOTE | 2019-11-08 22:30 | NUR ---
Called Dr. Vasquez and informed of patient current declining status with recent UA that shows E. Coli. Received order to administer normal saline at 100 mL/hr and Rocephin 1gm daily. Order placed. Will discussed with patient for new IV placement to have fluid and abx administer.
[2019-11-08] MEDS: normal saline 1000ml 1,000 ML IV SCH (23:40)
[2019-11-09] MEDS: CefTRIAXone/D5W-Rocephin 1gm 50 ML IV SCH
--- NOTE | 2019-11-09 | NUR ---
Advise with pt risks and benefits of placing new IV for fluid and abx administering. Pt refuses IV start at this time. Will address with oncoming nurse and continue to monitor patient.
--- NOTE | 2019-11-09 06:25 | NUR ---
Patient in room [facility]. I have received report from ALE Valdivia and had the opportunity to ask questions and assume patient care.
--- NOTE | 2019-11-09 06:30 | NUR ---
Pt refused VS
--- NOTE | 2019-11-09 06:36 | NUR ---
Problems reprioritized. Patient report given, questions answered & plan of care reviewed with ALE Jimenez.
--- NOTE | 2019-11-09 07:00 | NUR ---
pt. refused 0700 vs
[2019-11-09] MEDS: lactose-reduced food (Ensure Enlive) - 237ml bottle PO SCH ×3 (07:31→18:00)
[2019-11-09] MEDS: normal saline 1000ml 1,000 ML IV SCH ×2 (09:40→19:40)
[2019-11-09] MEDS: lactobacillus rhamnosus 10,000 MMU CELLS/CAPSULE PO SCH ×2 (10:49→20:00)
[2019-11-09] MEDS: mineral oil/petrolatum, white cream 113gm jar TP SCH ×2 (10:50→20:00)
[2019-11-09] MEDS: divalproex sod 125mg sprinkle cap PO SCH ×3 (10:50→17:04)
[2019-11-09] MEDS: atenolol 25mg tablet PO SCH (10:53)
[2019-11-09] MEDS: magnesium hydroxide 30ml (MOM) UD suspension PO PRN (10:54)
--- NOTE | 2019-11-09 10:54 | NUR ---
Unable to administer atenolol 2/2 pt continues to refuse VS
[2019-11-09 12:00] VITALS: BP 143/77
[2019-11-09] MEDS: HYDROcodone/acetaminophen 5mg/325mg tablet PO PRN ×2 (13:47→20:00)
[2019-11-09 18:00] VITALS: BP 118/75
--- NOTE | 2019-11-09 18:00 | NUR ---
Patient in room [facility]. I have received report from Barbara AGUILERA and had the opportunity to ask questions and assume patient care.
--- NOTE | 2019-11-09 18:40 | NUR ---
Problems reprioritized. Patient report given, questions answered & plan of care reviewed with ALE Lorenzo.
[2019-11-09] MEDS: risperiDONE 2mg tablet PO SCH (20:00)
--- NOTE | 2019-11-09 21:44 | NUR ---
patient refused eucerin cream
[2019-11-10] VITALS: BP 118/60
[2019-11-10] MEDS: CefTRIAXone/D5W-Rocephin 1gm 50 ML IV SCH
--- NOTE | 2019-11-10 06:22 | NUR ---
Problems reprioritized. Patient report given, questions answered & plan of care reviewed with Radha AGUILERA.
--- NOTE | 2019-11-10 06:28 | NUR ---
Patient in room [facility]. I have received report from ALE Lorenzo and had the opportunity to ask questions and assume patient care. Patient is resting comfortably in bed, in no apparent distress.
[2019-11-10] MEDS: normal saline 1000ml 1,000 ML IV SCH ×2 (06:42→14:41)
[2019-11-10 07:00] VITALS: BP 150/87
[2019-11-10] MEDS: lactobacillus rhamnosus 10,000 MMU CELLS/CAPSULE PO SCH ×2 (07:16→20:25)
[2019-11-10] MEDS: atenolol 25mg tablet PO SCH (07:18)
[2019-11-10] MEDS: mineral oil/petrolatum, white cream 113gm jar TP SCH ×3 (07:30→20:00)
[2019-11-10] MEDS: divalproex sod 125mg sprinkle cap PO SCH ×3 (07:31→17:14)
[2019-11-10] MEDS: magnesium hydroxide 30ml (MOM) UD suspension PO PRN (07:32)
[2019-11-10] MEDS: lactose-reduced food (Ensure Enlive) - 237ml bottle PO SCH ×3 (08:15→18:01)
[2019-11-10 11:30] VITALS: BP 125/65
[2019-11-10] MEDS: HYDROcodone/acetaminophen 5mg/325mg tablet PO PRN (13:19)
--- NOTE | 2019-11-10 15:22 | NUR ---
Xavier consult: Xavier 12; skin intact. Pt PO continues to fluctuate 25-50% ensure enlive TIDWM and 50-75% past 2 MM5 meals though mostly refusing/0-25% 3 days prior. AOx1 refusing all meds/labs per DO note today. Pending family discussion regarding code status per DO note. Large BM today per EMR. Will continue to monitor for PO acceptance and changes in code status. Recommendations: 1) Continue MM5/mechanical soft grind all diet with thin liquids per ST recs 2) Assist with meals; encourage PO intake 3) Yogurt q breakfast, Ensure pudding q lunch, and smoothie TID 4) Ensure Enlive TIDWM 5) Routine bowel care 6) Scaled weight this admit 7) monitor for changes in code status Addendum: 11/10/19 at [address] Amended: Links added.
--- NOTE | 2019-11-10 18:05 | NUR ---
Problems reprioritized. Patient report given, questions answered & plan of care reviewed with ALE Lorenzo.
--- NOTE | 2019-11-10 18:06 | NUR ---
Student documentation: I have reviewed and agree with all interventions, assessments performed and documented by SN Radha. Student Medication Administration: For this medication-pass time frame, all medication were reviewed, dispensed, administered and documented per hospital policy by SN Radha.
--- NOTE | 2019-11-10 18:10 | NUR ---
Problems reprioritized. Patient report given, questions answered & plan of care reviewed with ALE Lorenzo.
--- NOTE | 2019-11-10 18:13 | NUR ---
Patient in room [facility]. I have received report from Radha AGUILERA and had the opportunity to ask questions and assume patient care.
[2019-11-10 20:00] VITALS: BP 161/82
[2019-11-10] MEDS: risperiDONE 2mg tablet PO SCH (20:25)
[2019-11-11] MEDS: CefTRIAXone/D5W-Rocephin 1gm 50 ML IV SCH
[2019-11-11 00:10] VITALS: BP 151/65
[2019-11-11] MEDS: normal saline 1000ml 1,000 ML IV SCH (01:40)
--- NOTE | 2019-11-11 06:18 | NUR ---
Problems reprioritized. Patient report given, questions answered & plan of care reviewed with Radha AGUILERA.
--- NOTE | 2019-11-11 06:39 | NUR ---
Patient in room [facility]. I have received report from ALE Lorenzo and had the opportunity to ask questions and assume patient care.
[2019-11-11 08:00] VITALS: BP 120/70
[2019-11-11] MEDS: mineral oil/petrolatum, white cream 113gm jar TP SCH ×2 (08:00→20:00)
[2019-11-11] MEDS: lactobacillus rhamnosus 10,000 MMU CELLS/CAPSULE PO SCH ×2 (08:26→20:00)
[2019-11-11] MEDS: divalproex sod 125mg sprinkle cap PO SCH ×3 (08:27→17:31)
[2019-11-11] MEDS: atenolol 25mg tablet PO SCH (08:27)
[2019-11-11] MEDS: lactose-reduced food (Ensure Enlive) - 237ml bottle PO SCH ×3 (08:33→18:13)
[2019-11-11 11:26] VITALS: BP 118/74
--- NOTE | 2019-11-11 18:00 | NUR ---
Patient in room [facility]. I have received report from Radha AGUILERA and had the opportunity to ask questions and assume patient care.
--- NOTE | 2019-11-11 18:16 | NUR ---
Student Medication Administration: For this medication-pass time frame, all medication were reviewed, dispensed, administered and documented per hospital policy by SN Radha. Student documentation: I have reviewed and agree with all interventions, assessments performed and documented by SN Radha.
--- NOTE | 2019-11-11 18:23 | NUR ---
Problems reprioritized. Patient report given, questions answered & plan of care reviewed with ALE Lorenzo.
[2019-11-11 19:35] VITALS: BP 131/66
[2019-11-11] MEDS: risperiDONE 2mg tablet PO SCH (21:00)
--- NOTE | 2019-11-11 21:00 | NUR ---
Patient refused medication, stated she didnt want to be bothered. Educated her on milk of magnesia because she hasnt had a bowel movement since 11-06-19 but she still refused
[2019-11-12] VITALS: BP 139/72
[2019-11-12] MEDS: CefTRIAXone/D5W-Rocephin 1gm 50 ML IV SCH
--- NOTE | 2019-11-12 06:15 | NUR ---
Patient in room [facility] 357. I have received report from Maura AGUILERA and had the opportunity to ask questions and assume patient care.
--- NOTE | 2019-11-12 06:25 | NUR ---
Problems reprioritized. Patient report given, questions answered & plan of care reviewed with Annel AGUILERA.
[2019-11-12 07:00] VITALS: BP 118/74
[2019-11-12] MEDS: lactobacillus rhamnosus 10,000 MMU CELLS/CAPSULE PO SCH ×2 (08:00→19:52)
[2019-11-12] MEDS: lactose-reduced food (Ensure Enlive) - 237ml bottle PO SCH ×3 (08:00→17:14)
[2019-11-12] MEDS: mineral oil/petrolatum, white cream 113gm jar TP SCH ×2 (08:00→19:52)
[2019-11-12] MEDS: atenolol 25mg tablet PO SCH (08:00)
[2019-11-12] MEDS: divalproex sod 125mg sprinkle cap PO SCH ×3 (09:39→17:44)
[2019-11-12 11:00] VITALS: BP 113/66
--- NOTE | 2019-11-12 11:38 | NUR ---
Problems reprioritized. Patient report given, questions answered & plan of care reviewed with Dina AGUILERA.
--- NOTE | 2019-11-12 13:00 | NUR ---
patient is using a wic. Addendum: 11/12/19 at 1559 by Kamari MAZARIEGOS Amended: Links added.
--- NOTE | 2019-11-12 18:08 | NUR ---
Student documentation: I have reviewed all interventions, assessments performed and documented by [facility] student.
--- NOTE | 2019-11-12 18:22 | NUR ---
Problems reprioritized. Patient report given, questions answered & plan of care reviewed with Honey RN.
[2019-11-12 19:30] VITALS: BP 119/60
[2019-11-12] MEDS: risperiDONE 2mg tablet PO SCH (19:52)
[2019-11-13] MEDS: CefTRIAXone/D5W-Rocephin 1gm 50 ML IV SCH
--- NOTE | 2019-11-13 | NUR ---
refusing VS check Addendum: 11/13/19 at 0344 by Sissy Currie RN Amended: Links added.
--- NOTE | 2019-11-13 06:20 | NUR ---
Patient in room [facility]. I have received report from ALE TERAN and had the opportunity to ask questions and assume patient care.
[2019-11-13 07:00] VITALS: BP 130/73
[2019-11-13] MEDS: mineral oil/petrolatum, white cream 113gm jar TP SCH ×2 (08:00→20:00)
[2019-11-13] MEDS: lactose-reduced food (Ensure Enlive) - 237ml bottle PO SCH ×3 (08:00→18:00)
[2019-11-13] MEDS: lactobacillus rhamnosus 10,000 MMU CELLS/CAPSULE PO SCH ×2 (08:00→20:04)
[2019-11-13] MEDS: atenolol 25mg tablet PO SCH ×2 (08:00→14:15)
[2019-11-13] MEDS: divalproex sod 125mg sprinkle cap PO SCH ×4 (08:00→17:51)
--- NOTE | 2019-11-13 11:03 | NUR ---
Reassessment: Starting 11/11 patient appetite improved greatly and began eating 75-100% of meals that day, prior intake fluctuating 25-50% ensure enlive TIDWM and 50-75% past 2 MM5 meals though mostly refusing/0-25% 3 days prior. Will continue to monitor for PO acceptance. Recommendations: 1) Continue MM5/mechanical soft grind all diet with thin liquids per ST recs 2) Assist with meals; encourage PO intake 3) Yogurt q breakfast, Ensure pudding q lunch, and smoothie TID 4) Ensure Enlive TIDWM 5) Routine bowel care 6) Scaled weight this admit Addendum: 11/13/19 at [address] Amended: Links added.
[2019-11-13] MEDS: NICOTINE POLACRILEX 2 MG LOZENGE BC PRN ×3 (15:18→22:05)
[2019-11-13 15:53] VITALS: BP 140/59
[2019-11-13 18:00] VITALS: BP 143/75
--- NOTE | 2019-11-13 19:30 | NUR ---
Patient in room [facility]. I have received report from Carlene Youssef RN and had the opportunity to ask questions and assume patient care.
[2019-11-13] MEDS ORDERED: ondansetron 4mg rapidly disintigrating tab PO PRN (19:55)
[2019-11-13] MEDS: risperiDONE 2mg tablet PO SCH (20:04)
--- NOTE | 2019-11-13 23:39 | NUR ---
pt tawnyaing jasvir, bed alarm going off. pt repositioned for comfort left side poc with pillows. refuses any other care. Addendum: 11/13/19 at 2340 by Steve Buchanan RN Amended: Links added.
[2019-11-14 00:05] VITALS: BP 146/78
[2019-11-14] MEDS: HYDROcodone/acetaminophen 5mg/325mg tablet PO PRN ×3 (00:17→20:25)
--- NOTE | 2019-11-14 06:50 | NUR ---
Problems reprioritized. Patient report given, questions answered & plan of care reviewed with ALE Mckeon.
[2019-11-14 07:00] VITALS: BP 122/72
[2019-11-14] MEDS: mineral oil/petrolatum, white cream 113gm jar TP SCH ×2 (08:00→20:20)
[2019-11-14] MEDS: lactose-reduced food (Ensure Enlive) - 237ml bottle PO SCH ×3 (08:47→19:35)
[2019-11-14] MEDS: lactobacillus rhamnosus 10,000 MMU CELLS/CAPSULE PO SCH ×2 (08:53→20:21)
[2019-11-14] MEDS: divalproex sod 125mg sprinkle cap PO SCH ×3 (08:53→17:48)
[2019-11-14] MEDS: atenolol 25mg tablet PO SCH (08:53)
[2019-11-14 18:00] VITALS: BP 100/61
--- NOTE | 2019-11-14 18:17 | NUR ---
Problems reprioritized. Patient report given, questions answered & plan of care reviewed with Agata Dacsota RN.
--- NOTE | 2019-11-14 18:27 | NUR ---
Patient in room [facility]. I have received report from ALE Cuevas and had the opportunity to ask questions and assume patient care. Addendum: 11/14/19 at 1828 by Lamar Moon RN Amended: Links added.
[2019-11-14] MEDS: risperiDONE 2mg tablet PO SCH (20:21)
[2019-11-15] VITALS: BP 129/85
--- NOTE | 2019-11-15 06:29 | NUR ---
Problems reprioritized. Patient report given, questions answered & plan of care reviewed with ALE No.
--- NOTE | 2019-11-15 06:39 | NUR ---
Patient in room [facility]. I have received report from Agata Dacosta RN and had the opportunity to ask questions and assume patient care.
--- NOTE | 2019-11-15 06:40 | NUR ---
Patient in room [facility]. I have received report from ALE Parmar and had the opportunity to ask questions and assume patient care.
[2019-11-15 07:00] VITALS: BP 133/69
[2019-11-15] MEDS: mineral oil/petrolatum, white cream 113gm jar TP SCH ×2 (08:00→20:00)
[2019-11-15] MEDS: lactose-reduced food (Ensure Enlive) - 237ml bottle PO SCH ×3 (08:00→17:47)
[2019-11-15] MEDS ORDERED: amox tr/potassium clavulanate 500mg/125mg TAB PO SCH (08:30)
[2019-11-15] MEDS: lactobacillus rhamnosus 10,000 MMU CELLS/CAPSULE PO SCH ×2 (09:11→20:00)
[2019-11-15] MEDS: divalproex sod 125mg sprinkle cap PO SCH ×3 (09:11→17:47)
[2019-11-15] MEDS: atenolol 25mg tablet PO SCH (09:13)
[2019-11-15 11:39] VITALS: BP 150/79
--- NOTE | 2019-11-15 11:57 | NUR ---
Student documentation: I have reviewed all interventions, assessments performed and documented by Radha HALL for [facility]. Student Medication Administration: For all medication-pass' in the time frame of 1172-5447, all medications were reviewed, dispensed, administered and documented per hospital policy by Radha HALL for [facility].
[2019-11-15 18:00] VITALS: BP 119/62
--- NOTE | 2019-11-15 18:02 | NUR ---
Problems reprioritized. Patient report given, questions answered & plan of care reviewed with Agata Cade RN.
--- NOTE | 2019-11-15 18:06 | NUR ---
Problems reprioritized. Patient report given, questions answered & plan of care reviewed with Agata Dacosta RN.
--- NOTE | 2019-11-15 18:13 | NUR ---
Patient in room [facility]. I have received report from ALE No and had the opportunity to ask questions and assume patient care. Addendum: 11/15/19 at 1814 by Lamar Moon RN Amended: Links added.
[2019-11-15] MEDS: risperiDONE 2mg tablet PO SCH (21:00)
[2019-11-16] VITALS: BP 110/55
--- NOTE | 2019-11-16 06:38 | NUR ---
Problems reprioritized. Patient report given, questions answered & plan of care reviewed with ALE Patel.
--- NOTE | 2019-11-16 06:44 | NUR ---
Patient in room [facility]. I have received report from Agata AGUILERA and had the opportunity to ask questions and assume patient care.
[2019-11-16 07:00] VITALS: BP 133/61
[2019-11-16] MEDS: lactose-reduced food (Ensure Enlive) - 237ml bottle PO SCH ×3 (08:00→18:05)
[2019-11-16] MEDS: atenolol 25mg tablet PO SCH (09:08)
[2019-11-16] MEDS: divalproex sod 125mg sprinkle cap PO SCH ×3 (09:08→18:04)
[2019-11-16] MEDS: lactobacillus rhamnosus 10,000 MMU CELLS/CAPSULE PO SCH ×2 (09:08→20:06)
[2019-11-16] MEDS: mineral oil/petrolatum, white cream 113gm jar TP SCH ×2 (09:09→20:10)
[2019-11-16 11:00] VITALS: BP 143/62
[2019-11-16 15:13] LABS: CLARITY,URINE CLOUDY (Clear); COLOR,URINE YELLOW (Yellow); GLUCOSE, URINE NEGATIVE (Neg); KETONES,URINE TRACE mg/dl (Neg); LEUKOCYTE ESTERASE ,URINE LARGE (Neg); NITRITES, URINE POSITIVE (Neg); OCCULT BLOOD,URINE SMALL (Neg); PH,URINE 7.5 (4.8-8.0); PROTEIN,URINE 30 mg/dl (Neg)
[2019-11-16 15:17] LABS: UA COLLECTION TYPE NON-SPECIFIED
[2019-11-16 15:20] LABS: BACTERIA,URINE 4+ /HPF (Neg); MUCUS STRANDS NONE SEEN /LPF (Neg); SQUAMOUS EPITHELIAL CELL,UR FEW /LPF (FEW); WBC,URINE TNTC /HPF (0-4)
--- NOTE | 2019-11-16 16:27 | NUR ---
F/u(11/15): Pt PO fluctuating 25-50% w/ refusals of ensure enlives and PO 25-50% avg meals occasionally 100% meals. note 11/14 reports pt stating she's hungry w/ food sitting right next to her and likely needs feeder. BILLY d/w RN today regarding placing feeder sign on pt door to ensure assistance w/ meals. PO fluctuations likely r/t ALOC and lack of assistance at meals. LBM 11/12. Will continue to monitor. Recommendations: 1) Continue MM5/mechanical soft grind all diet with thin liquids per ST recs 2) Assist with meals; encourage PO intake 3) Yogurt q breakfast, Ensure pudding q lunch, and smoothie TID 4) Ensure Enlive TIDWM 5) Routine bowel care 6) Scaled weight this admit Addendum: 11/16/19 at [address] Amended: Links added.
--- NOTE | 2019-11-16 18:35 | NUR ---
Problems reprioritized. Patient report given, questions answered & plan of care reviewed with Meli AGUILERA.
--- NOTE | 2019-11-16 18:35 | NUR ---
Patient in room [facility]. I have received report from Amanda AGUILERA and had the opportunity to ask questions and assume patient care. Pt being changed at time of report, no signs of distress. Will continue to monitor.
[2019-11-16 20:00] VITALS: BP 126/71
[2019-11-16] MEDS: risperiDONE 2mg tablet PO SCH (20:06)
[2019-11-16] MEDS: NICOTINE POLACRILEX 2 MG LOZENGE BC PRN (20:08)
[2019-11-16] MEDS: LORazepam 0.5 MG tablet PO PRN (23:41)
[2019-11-17] VITALS: BP 132/59
--- NOTE | 2019-11-17 06:30 | NUR ---
Problems reprioritized. Patient report given, questions answered & plan of care reviewed with Marybel AGUILERA.
--- NOTE | 2019-11-17 06:34 | NUR ---
Patient in room [facility]. I have received report from Meli Andino RN and had the opportunity to ask questions and assume patient care.
[2019-11-17 07:15] VITALS: BP 122/58
[2019-11-17] MEDS: lactose-reduced food (Ensure Enlive) - 237ml bottle PO SCH ×3 (08:00→18:00)
--- NOTE | 2019-11-17 09:50 | NUR ---
Patient is still sleeping. Chest rising and falling.
[2019-11-17] MEDS: lactobacillus rhamnosus 10,000 MMU CELLS/CAPSULE PO SCH ×2 (10:08→19:51)
[2019-11-17] MEDS: divalproex sod 125mg sprinkle cap PO SCH ×3 (10:08→16:52)
[2019-11-17] MEDS: atenolol 25mg tablet PO SCH (10:11)
[2019-11-17] MEDS: NICOTINE POLACRILEX 2 MG LOZENGE BC PRN ×3 (10:11→19:55)
[2019-11-17] MEDS: mineral oil/petrolatum, white cream 113gm jar TP SCH ×2 (10:17→19:53)
[2019-11-17 12:15] VITALS: BP 120/65
[2019-11-17] MEDS: baclofen 10mg tablet PO PRN (13:24)
--- NOTE | 2019-11-17 13:44 | NUR ---
PATIENT OUT OF BED, SITTING IN CHAIR.
--- NOTE | 2019-11-17 15:13 | NUR ---
Pt did not eat lunch. She stated "she was not hungry". Asked for food to be left at bedside. I did.
--- NOTE | 2019-11-17 17:13 | NUR ---
Student documentation: I have reviewed interventions, assessments performed and documented by Sylwia HALL for [facility]. Student Medication Administration: For medication-pass' in the time frame of 0600 to 1830, all medication were reviewed, dispensed, administered and documented per hospital policy by Sylwia HALL for [facility].
--- NOTE | 2019-11-17 18:16 | NUR ---
Problems reprioritized. Patient report given, questions answered & plan of care reviewed with Meli AGUILERA.
--- NOTE | 2019-11-17 18:16 | NUR ---
Problems reprioritized. Patient report given, questions answered & plan of care reviewed with Meli AGUILERA.
--- NOTE | 2019-11-17 18:40 | NUR ---
Patient in room [facility] 357. I have received report from Marybel AGUILERA and had the opportunity to ask questions and assume patient care.
[2019-11-17] MEDS: LORazepam 0.5 MG tablet PO PRN (19:55)
[2019-11-17 20:00] VITALS: BP 161/84
[2019-11-17] MEDS: risperiDONE 2mg tablet PO SCH (21:00)
--- NOTE | 2019-11-18 06:02 | NUR ---
Problems reprioritized. Patient report given, questions answered & plan of care reviewed with Stephen RN.
[2019-11-18] MEDS: mineral oil/petrolatum, white cream 113gm jar TP SCH ×2 (08:00→20:00)
[2019-11-18] MEDS: lactose-reduced food (Ensure Enlive) - 237ml bottle PO SCH ×3 (08:00→18:03)
[2019-11-18 09:00] VITALS: BP 103/56
[2019-11-18] MEDS: baclofen 10mg tablet PO PRN (09:42)
[2019-11-18] MEDS: lactobacillus rhamnosus 10,000 MMU CELLS/CAPSULE PO SCH ×2 (09:43→20:54)
[2019-11-18] MEDS: atenolol 25mg tablet PO SCH (09:46)
[2019-11-18] MEDS: divalproex sod 125mg sprinkle cap PO SCH ×3 (09:57→17:30)
[2019-11-18 11:44] VITALS: BP 124/54
--- NOTE | 2019-11-18 18:40 | NUR ---
I have received report from Stephen AGUILERA and had the opportunity to ask questions and assume patient care.
--- NOTE | 2019-11-18 18:58 | NUR ---
Problems reprioritized. Patient report given, questions answered & plan of care reviewed with Lavonne AGUILERA.
[2019-11-18 20:00] VITALS: BP 126/79
[2019-11-18] MEDS: risperiDONE 2mg tablet PO SCH (20:54)
--- NOTE | 2019-11-19 04:14 | NUR ---
pt refused vital signs Addendum: 11/19/19 at 0415 by Lavonne Rust RN Amended: Links added.
--- NOTE | 2019-11-19 06:30 | NUR ---
Patient in room [facility]. I have received report from Lavonne AGUIELRA and had the opportunity to ask questions and assume patient care.
--- NOTE | 2019-11-19 06:43 | NUR ---
Problems reprioritized. Patient report given, questions answered & plan of care reviewed with Kate AGUILERA.
[2019-11-19 07:30] VITALS: BP 103/54
[2019-11-19] MEDS: mineral oil/petrolatum, white cream 113gm jar TP SCH ×2 (08:00→20:00)
[2019-11-19] MEDS: lactose-reduced food (Ensure Enlive) - 237ml bottle PO SCH ×3 (08:00→18:53)
[2019-11-19] MEDS: divalproex sod 125mg sprinkle cap PO SCH ×3 (09:01→17:18)
[2019-11-19] MEDS: atenolol 25mg tablet PO SCH (09:02)
[2019-11-19] MEDS: lactobacillus rhamnosus 10,000 MMU CELLS/CAPSULE PO SCH ×2 (09:02→21:20)
[2019-11-19] MEDS: NICOTINE POLACRILEX 2 MG LOZENGE BC PRN ×2 (12:57→21:26)
--- NOTE | 2019-11-19 14:26 | NUR ---
F/u 11/18: Pt PO continues to decline and fluctuate past 4 days 0%/refusing meals/ONS not meeting needs. Receiving feeder w/ meals for assistance now as well. Dementia w/ mental health disorder impacting mentation per MD. BILLY d/w RN regarding appetite stimulant if MD agreeable. LBM 11/17. Will continue to monitor. Recommendations: 1) Continue MM5/mechanical soft grind all diet with thin liquids per ST recs 2) Assist with meals; encourage PO intake; appetite stimulant if MD agreeable 3) Yogurt q breakfast, Ensure pudding q lunch, and smoothie TID 4) Ensure Enlive TIDWM 5) Routine bowel care 6) Scaled weight this admit Addendum: 11/19/19 at [address] Amended: Links added.
--- NOTE | 2019-11-19 16:07 | NUR ---
Student documentation: I have reviewed all interventions, assessments performed and documented by Kamari HALL from [facility]. Student Medication Administration: For medications-passed in the time frame of 1200 to 1800, all medication were reviewed, dispensed, administered and documented per hospital policy by Kamari HALL from [facility].
--- NOTE | 2019-11-19 18:00 | NUR ---
Problems reprioritized. Patient report given, questions answered & plan of care reviewed with Lavonne AGUILERA.
--- NOTE | 2019-11-19 18:33 | NUR ---
I have received report from Kate AGUILERA and had the opportunity to ask questions and assume patient care.
[2019-11-19 20:00] VITALS: BP 142/73
[2019-11-19] MEDS: risperiDONE 2mg tablet PO SCH (21:20)
[2019-11-20] VITALS: BP 136/71
--- NOTE | 2019-11-20 06:41 | NUR ---
Problems reprioritized. Patient report given, questions answered & plan of care reviewed with Ania AGUILERA.
[2019-11-20 07:32] VITALS: BP 127/72
[2019-11-20] MEDS: mineral oil/petrolatum, white cream 113gm jar TP SCH ×2 (08:00→19:20)
[2019-11-20] MEDS: lactose-reduced food (Ensure Enlive) - 237ml bottle PO SCH ×3 (08:57→18:02)
[2019-11-20] MEDS: divalproex sod 125mg sprinkle cap PO SCH ×3 (08:57→18:02)
[2019-11-20] MEDS: atenolol 25mg tablet PO SCH (08:57)
[2019-11-20] MEDS: lactobacillus rhamnosus 10,000 MMU CELLS/CAPSULE PO SCH ×2 (08:57→19:20)
[2019-11-20 11:00] VITALS: BP 91/60
[2019-11-20 18:00] VITALS: BP 127/72
--- NOTE | 2019-11-20 18:00 | NUR ---
Gave report to Prudence RN. Pt. recently repositioned.
[2019-11-20] MEDS: baclofen 10mg tablet PO PRN (19:19)
[2019-11-20] MEDS: risperiDONE 2mg tablet PO SCH (19:20)
[2019-11-20] MEDS: LORazepam 0.5 MG tablet PO PRN (21:07)
[2019-11-21] MEDS: lactobacillus rhamnosus 10,000 MMU CELLS/CAPSULE PO SCH ×2 (08:00→20:30)
[2019-11-21] MEDS: atenolol 25mg tablet PO SCH (08:00)
[2019-11-21] MEDS: mineral oil/petrolatum, white cream 113gm jar TP SCH ×2 (08:00→20:31)
[2019-11-21] MEDS: lactose-reduced food (Ensure Enlive) - 237ml bottle PO SCH ×3 (08:00→18:03)
[2019-11-21 09:04] VITALS: BP 131/74
[2019-11-21] MEDS: divalproex sod 125mg sprinkle cap PO SCH ×4 (11:00→17:52)
[2019-11-21 18:00] VITALS: BP 108/68
--- NOTE | 2019-11-21 18:24 | NUR ---
Problems reprioritized. Patient report given, questions answered & plan of care reviewed with PRUDENCE RN.
--- NOTE | 2019-11-21 18:40 | NUR ---
Patient in room [facility]. I have received report from CONNIE AGUILERA and had the opportunity to ask questions and assume patient care.
[2019-11-21] MEDS: risperiDONE 2mg tablet PO SCH (20:30)
[2019-11-21] MEDS: LORazepam 0.5 MG tablet PO PRN (20:30)
--- NOTE | 2019-11-22 06:45 | NUR ---
Patient in room [facility]. I have received report from ALE Hollingsworth and had the opportunity to ask questions and assume patient care.
[2019-11-22 07:07] VITALS: BP 137/66
[2019-11-22] MEDS: lactose-reduced food (Ensure Enlive) - 237ml bottle PO SCH ×3 (08:00→18:10)
[2019-11-22] MEDS: atenolol 25mg tablet PO SCH (09:46)
[2019-11-22] MEDS: lactobacillus rhamnosus 10,000 MMU CELLS/CAPSULE PO SCH ×2 (09:46→19:40)
[2019-11-22] MEDS: mineral oil/petrolatum, white cream 113gm jar TP SCH ×2 (09:47→19:43)
[2019-11-22] MEDS: divalproex sod 125mg sprinkle cap PO SCH ×3 (09:47→17:38)
--- NOTE | 2019-11-22 12:13 | NUR ---
Reassessment: Pt continues with fluctuating PO intake, averaging 25-50% PO intake of meals with refusals and 50% PO intake of ONS with refusals. Noted that pt has been documented to be independent with meals. New order in place requesting assistance with meals. Hopeful that PO intake will improve with assistance and encouragement. LBM 11/20. Will continue to follow closely. Recommendations: 1) Continue MM5/mechanical soft grind all diet with thin liquids per ST recs 2) Assist with meals; encourage PO intake; appetite stimulant if MD agreeable 3) Yogurt q breakfast, Ensure pudding q lunch, and smoothie TID 4) Ensure Enlive TIDWM 5) Routine bowel care 6) Scaled weight this admit Addendum: 11/22/19 at [address] Amended: Links added.
[2019-11-22 18:00] VITALS: BP 116/60
--- NOTE | 2019-11-22 18:25 | NUR ---
Problems reprioritized. Patient report given, questions answered & plan of care reviewed with ALE Hollingsworth.
[2019-11-22] MEDS: risperiDONE 2mg tablet PO SCH (21:17)
[2019-11-23] MEDS: LORazepam 0.5 MG tablet PO PRN (00:49)
--- NOTE | 2019-11-23 05:04 | NUR ---
Student documentation: I have reviewed and agree with all interventions, assessments performed and documented by ALONA AGUILERA.
--- NOTE | 2019-11-23 05:05 | NUR ---
Student Medication Administration: For this medication-pass time frame, all medication were reviewed, dispensed, administered and documented per hospital policy by ALONA Adams
--- NOTE | 2019-11-23 06:22 | NUR ---
Problems reprioritized. Patient report given, questions answered & plan of care reviewed with Barbara RN.
--- NOTE | 2019-11-23 06:25 | NUR ---
Patient in room [facility]. I have received report from ALE Hollingsworth and had the opportunity to ask questions and assume patient care.
[2019-11-23] MEDS: divalproex sod 125mg sprinkle cap PO SCH ×3 (09:17→17:33)
[2019-11-23] MEDS: lactobacillus rhamnosus 10,000 MMU CELLS/CAPSULE PO SCH ×2 (09:17→20:37)
[2019-11-23] MEDS: mineral oil/petrolatum, white cream 113gm jar TP SCH ×3 (09:18→21:43)
[2019-11-23] MEDS: lactose-reduced food (Ensure Enlive) - 237ml bottle PO SCH ×3 (09:18→17:33)
[2019-11-23] MEDS: atenolol 25mg tablet PO SCH (09:18)
--- NOTE | 2019-11-23 18:35 | NUR ---
Problems reprioritized. Patient report given, questions answered & plan of care reviewed with ALE Dao.
[2019-11-23 19:57] VITALS: BP 127/65
[2019-11-23] MEDS: risperiDONE 2mg tablet PO SCH (20:37)
--- NOTE | 2019-11-24 06:42 | NUR ---
Patient in room [facility]. I have received report from ALE Dao and had the opportunity to ask questions and assume patient care.
[2019-11-24 07:00] VITALS: BP 109/54
[2019-11-24] MEDS: lactobacillus rhamnosus 10,000 MMU CELLS/CAPSULE PO SCH ×2 (08:04→20:19)
[2019-11-24] MEDS: divalproex sod 125mg sprinkle cap PO SCH ×3 (08:05→17:40)
[2019-11-24] MEDS: atenolol 25mg tablet PO SCH (08:05)
[2019-11-24] MEDS: mineral oil/petrolatum, white cream 113gm jar TP SCH ×2 (08:06→20:00)
[2019-11-24] MEDS: lactose-reduced food (Ensure Enlive) - 237ml bottle PO SCH ×3 (08:06→18:02)
[2019-11-24 11:00] VITALS: BP 129/73
--- NOTE | 2019-11-24 11:44 | NUR ---
ASSISTED PT TO THE COMMODE THEN TO HER CHAIR. SHE IS UP IN CHAIR WAITING FOR LUNCH AND DRINKING WATER.
--- NOTE | 2019-11-24 18:32 | NUR ---
Problems reprioritized. Patient report given, questions answered & plan of care reviewed with ALE BENAVIDEZ.
[2019-11-24 20:00] VITALS: BP 127/72
[2019-11-24] MEDS: risperiDONE 2mg tablet PO SCH (20:19)
[2019-11-25] VITALS: BP 146/71
--- NOTE | 2019-11-25 06:29 | NUR ---
Patient in room [facility]. I have received report from Sylwia AGUILERA and had the opportunity to ask questions and assume patient care.
--- NOTE | 2019-11-25 06:33 | NUR ---
Patient in room [facility]A. I have received report from Sylwia AGUILERA and had the opportunity to ask questions and assume patient care.
--- NOTE | 2019-11-25 06:35 | NUR ---
Problems reprioritized. Patient report given, questions answered & plan of care reviewed with Annel AGUILERA and Student Nurse Amanda AGUILERA.
[2019-11-25] MEDS: divalproex sod 125mg sprinkle cap PO SCH ×3 (07:22→16:56)
[2019-11-25] MEDS: lactobacillus rhamnosus 10,000 MMU CELLS/CAPSULE PO SCH ×2 (07:22→20:53)
[2019-11-25] MEDS: atenolol 25mg tablet PO SCH (07:28)
[2019-11-25] MEDS: lactose-reduced food (Ensure Enlive) - 237ml bottle PO SCH ×3 (07:54→18:23)
[2019-11-25] MEDS: mineral oil/petrolatum, white cream 113gm jar TP SCH ×2 (07:55→20:00)
[2019-11-25 09:05] VITALS: BP 139/79
[2019-11-25 11:20] VITALS: BP 126/76
--- NOTE | 2019-11-25 12:41 | NUR ---
Reassessment: Pt c/o hunger and wanting to eat and reports difficulty opening containers per MD notes. Patient's PO intake continues to fluctuate though has significantly improved since receiving assistance with meals, documented with average 50-75% PO intake of meals and 50% PO intake of ONS closely meeting nutrient needs. Pt reports feeling that she is overfed now that she is receiving assistance with meals per MD notes. No further nutrition intervention implemented at this time. LBM 11/22. Will continue to follow closely. Recommendations: 1) Continue MM5/mechanical soft grind all diet with thin liquids per ST recs 2) Assist with meals; encourage PO intake; appetite stimulant if MD agreeable 3) Yogurt q breakfast, Ensure pudding q lunch, and smoothie TID 4) Ensure Enlive TIDWM 5) Routine bowel care 6) Scaled weight this admit Addendum: 11/25/19 at [address] Amended: Links added.
--- NOTE | 2019-11-25 18:30 | NUR ---
I have received report from Annel AGUILERA and had the opportunity to ask questions and assume patient care.
--- NOTE | 2019-11-25 18:32 | NUR ---
Student documentation: I have reviewed all interventions, assessments performed and documented by Amanda Student Nurse. Student Medication Administration: For this medication-pass time frame, all medication were reviewed, dispensed, administered and documented per hospital policy by Amanda Student Nurse.
--- NOTE | 2019-11-25 18:32 | NUR ---
Problems reprioritized. Patient report given, questions answered & plan of care reviewed with CHE AGUILERA.
--- NOTE | 2019-11-25 18:33 | NUR ---
Problems reprioritized. Patient report given, questions answered & plan of care reviewed with Lavonne AGUILERA.
[2019-11-25 19:31] VITALS: BP 109/65
[2019-11-25] MEDS: risperiDONE 2mg tablet PO SCH (20:53)
[2019-11-25] MEDS: NICOTINE POLACRILEX 2 MG LOZENGE BC PRN (20:55)
[2019-11-26] MEDS: NICOTINE POLACRILEX 2 MG LOZENGE BC PRN (01:37)
--- NOTE | 2019-11-26 06:46 | NUR ---
Problems reprioritized. Patient report given, questions answered & plan of care reviewed with Sandy AGUILERA.
--- NOTE | 2019-11-26 06:54 | NUR ---
Patient in room [facility] 357. I have received report from ALE Banerjee and had the opportunity to ask questions and assume patient care.
[2019-11-26 07:00] VITALS: BP 123/70
[2019-11-26] MEDS: lactose-reduced food (Ensure Enlive) - 237ml bottle PO SCH ×3 (08:00→18:00)
[2019-11-26] MEDS: lactobacillus rhamnosus 10,000 MMU CELLS/CAPSULE PO SCH ×2 (08:59→20:00)
[2019-11-26] MEDS: divalproex sod 125mg sprinkle cap PO SCH ×3 (08:59→17:54)
[2019-11-26] MEDS: atenolol 25mg tablet PO SCH (09:00)
[2019-11-26 11:00] VITALS: BP 123/71
[2019-11-26] MEDS: mineral oil/petrolatum, white cream 113gm jar TP SCH ×2 (12:14→20:00)
[2019-11-26 18:00] VITALS: BP 126/70
--- NOTE | 2019-11-26 18:35 | NUR ---
Patient in room [facility]. I have received report from ALE Delgado and had the opportunity to ask questions and assume patient care.
--- NOTE | 2019-11-26 18:51 | NUR ---
Problems reprioritized. Patient report given, questions answered & plan of care reviewed with ALE Parmar.
[2019-11-26] MEDS: risperiDONE 2mg tablet PO SCH (21:00)
[2019-11-27] VITALS: BP 94/60
--- NOTE | 2019-11-27 06:46 | NUR ---
Problems reprioritized. Patient report given, questions answered & plan of care reviewed with ALE Beltrán.
[2019-11-27 07:00] VITALS: BP 99/57
[2019-11-27] MEDS: lactose-reduced food (Ensure Enlive) - 237ml bottle PO SCH ×3 (08:00→18:30)
[2019-11-27] MEDS: atenolol 25mg tablet PO SCH (08:00)
[2019-11-27] MEDS: divalproex sod 125mg sprinkle cap PO SCH ×3 (08:59→17:43)
[2019-11-27] MEDS: lactobacillus rhamnosus 10,000 MMU CELLS/CAPSULE PO SCH ×2 (08:59→20:31)
[2019-11-27] MEDS: mineral oil/petrolatum, white cream 113gm jar TP SCH ×2 (09:01→20:31)
[2019-11-27] MEDS: baclofen 10mg tablet PO PRN (16:01)
[2019-11-27] MEDS: NICOTINE POLACRILEX 2 MG LOZENGE BC PRN ×2 (17:48→21:29)
--- NOTE | 2019-11-27 18:30 | NUR ---
Patient in room [facility]. I have received report from ALE Beltrán and had the opportunity to ask questions and assume patient care.
[2019-11-27 19:00] VITALS: BP 146/81
[2019-11-27] MEDS: risperiDONE 2mg tablet PO SCH (20:31)
[2019-11-28] MEDS: baclofen 10mg tablet PO PRN (04:20)
[2019-11-28 06:00] VITALS: BP 95/59
--- NOTE | 2019-11-28 06:55 | NUR ---
Problems reprioritized. Patient report given, questions answered & plan of care reviewed with ALE Sanford.
--- NOTE | 2019-11-28 07:02 | NUR ---
Patient in room [facility]. I have received report from arcenio barrera and had the opportunity to ask questions and assume patient care.
[2019-11-28] MEDS: mineral oil/petrolatum, white cream 113gm jar TP SCH ×2 (08:00→20:02)
[2019-11-28] MEDS: lactose-reduced food (Ensure Enlive) - 237ml bottle PO SCH ×3 (08:00→18:00)
[2019-11-28] MEDS: lactobacillus rhamnosus 10,000 MMU CELLS/CAPSULE PO SCH ×2 (09:15→20:02)
[2019-11-28] MEDS: atenolol 25mg tablet PO SCH (09:16)
[2019-11-28] MEDS: divalproex sod 125mg sprinkle cap PO SCH ×3 (09:17→17:30)
[2019-11-28 11:00] VITALS: BP 116/58
[2019-11-28] MEDS: LORazepam 0.5 MG tablet PO PRN (13:42)
--- NOTE | 2019-11-28 15:01 | NUR ---
Reassessment: Patient's PO intake continues to fluctuate, documented with average 50% PO intake of meals since last RD assessment (11/24), though with 100% PO intake x 2 meals and refusal x 2 meals. Pending additional documentation of PO intake for today. PO intake of ONS fluctuates with average 25-50% PO intake (providing 263-525 kcal and 15-30 g protein). LBM 11/22 still not receiving routine bowel care. D/w dietary to send prune juice with next meal to assist with bowel regularity. Will continue to follow closely. Recommendations: 1) Continue MM5/mechanical soft grind all diet with thin liquids per ST recs 2) Assist with meals; encourage PO intake; appetite stimulant if MD agreeable 3) Yogurt q breakfast, Ensure pudding q lunch, and smoothie TID 4) Ensure Enlive TIDWM 5) Routine bowel care 6) Scaled weight this admit Addendum: 11/28/19 at [address] Amended: Links added.
[2019-11-28 18:30] VITALS: BP 114/62
--- NOTE | 2019-11-28 18:55 | NUR ---
Patient in room [facility]. I have received report from bruce Cuello and had the opportunity to ask questions and assume patient care. Addendum: 11/28/19 at 1855 by Lamar Moon RN Amended: Links added.
--- NOTE | 2019-11-28 19:10 | NUR ---
All cares given to patient incon x2 of urine. Compliant at times.. Seen by DR Cardenas no new orders. Report given to Sandee Dacosta RN
[2019-11-28] MEDS: risperiDONE 2mg tablet PO SCH (20:02)
[2019-11-29] MEDS: LORazepam 0.5 MG tablet PO PRN (01:51)
--- NOTE | 2019-11-29 06:21 | NUR ---
Problems reprioritized. Patient report given, questions answered & plan of care reviewed with ALE CHAMPAGNE.
--- NOTE | 2019-11-29 06:23 | NUR ---
Patient in room [facility]. I have received report from Agata Dacosta RN and had the opportunity to ask questions and assume patient care.
[2019-11-29 07:00] VITALS: BP 121/64
[2019-11-29] MEDS: atenolol 25mg tablet PO SCH (08:00)
[2019-11-29] MEDS: lactose-reduced food (Ensure Enlive) - 237ml bottle PO SCH ×4 (08:00→18:21)
[2019-11-29] MEDS: lactobacillus rhamnosus 10,000 MMU CELLS/CAPSULE PO SCH ×2 (08:00→20:00)
[2019-11-29] MEDS: divalproex sod 125mg sprinkle cap PO SCH ×3 (08:00→17:33)
[2019-11-29 11:00] VITALS: BP 99/59
[2019-11-29] MEDS: mineral oil/petrolatum, white cream 113gm jar TP SCH ×2 (11:16→20:00)
--- NOTE | 2019-11-29 18:21 | NUR ---
Problems reprioritized. Patient report given, questions answered & plan of care reviewed with ALE Esteban.
[2019-11-29 18:30] VITALS: BP 171/89
[2019-11-29] MEDS: risperiDONE 2mg tablet PO SCH ×2 (21:00→21:54)
--- NOTE | 2019-11-29 22:03 | NUR ---
refused medications spit out her respiradone.
--- NOTE | 2019-11-30 05:40 | NUR ---
PT INC OF URINE SKIN CARE DONE WITH 2 PEOPLE REPOSITIONED BACK IN BED.
--- NOTE | 2019-11-30 06:00 | NUR ---
Patient in room [facility]. I have received report from ALE Esteban and had the opportunity to ask questions and assume patient care.
--- NOTE | 2019-11-30 06:50 | NUR ---
Problems reprioritized. Patient report given, questions answered & plan of care reviewed with ENRICO AGUILERA. Addendum: 11/30/19 at 0651 by Eulalia Navas RN Amended: Links added.
[2019-11-30 07:38] VITALS: BP 152/70
[2019-11-30] MEDS: lactobacillus rhamnosus 10,000 MMU CELLS/CAPSULE PO SCH ×2 (08:06→19:57)
[2019-11-30] MEDS: atenolol 25mg tablet PO SCH (08:07)
[2019-11-30] MEDS: divalproex sod 125mg sprinkle cap PO SCH ×3 (08:08→16:31)
[2019-11-30] MEDS: mineral oil/petrolatum, white cream 113gm jar TP SCH ×2 (08:10→20:00)
[2019-11-30] MEDS: lactose-reduced food (Ensure Enlive) - 237ml bottle PO SCH ×3 (08:13→18:00)
[2019-11-30] MEDS: baclofen 10mg tablet PO PRN (11:55)
[2019-11-30 12:58] VITALS: BP 111/74
--- NOTE | 2019-11-30 18:41 | NUR ---
Problems reprioritized. Patient report given, questions answered & plan of care reviewed with ALE Esteban.
--- NOTE | 2019-11-30 18:53 | NUR ---
Patient in room [facility]. I have received report from ENRICO AGUILERA and had the opportunity to ask questions and assume patient care. Addendum: 11/30/19 at 1853 by Eulalia Navas RN Amended: Links added.
[2019-11-30 19:00] VITALS: BP 101/71
[2019-11-30] MEDS: risperiDONE 2mg tablet PO SCH (19:57)
[2019-11-30] MEDS: acetaminophen 325mg tablet PO PRN (21:12)
--- NOTE | 2019-11-30 21:15 | NUR ---
medicated with tylenol for c/o back pain. pt assisted to bedside commode to void then back to bed. tolerated fair.
--- NOTE | 2019-11-30 23:00 | NUR ---
resting eyes closed without changes.
--- NOTE | 2019-12-01 01:05 | NUR ---
resting no changes.
--- NOTE | 2019-12-01 03:00 | NUR ---
resting without changes.
--- NOTE | 2019-12-01 05:06 | NUR ---
pt incontine of urine skin care done and turned to side.
--- NOTE | 2019-12-01 06:25 | NUR ---
Patient in room [facility]. I have received report from ALE DOLL and had the opportunity to ask questions and assume patient care.
--- NOTE | 2019-12-01 06:40 | NUR ---
Problems reprioritized. Patient report given, questions answered & plan of care reviewed with Carlene Costa. Addendum: 12/01/19 at 0641 by Eulalia Navas RN Amended: Links added.
[2019-12-01 07:00] VITALS: BP 146/78
[2019-12-01] MEDS: lactose-reduced food (Ensure Enlive) - 237ml bottle PO SCH ×3 (08:00→18:11)
[2019-12-01] MEDS: lactobacillus rhamnosus 10,000 MMU CELLS/CAPSULE PO SCH ×2 (09:13→20:12)
[2019-12-01] MEDS: divalproex sod 125mg sprinkle cap PO SCH ×3 (09:14→18:39)
[2019-12-01] MEDS: mineral oil/petrolatum, white cream 113gm jar TP SCH ×3 (09:14→20:06)
[2019-12-01] MEDS: atenolol 25mg tablet PO SCH (09:14)
--- NOTE | 2019-12-01 12:13 | NUR ---
F/u 11/30: Pt PO continues to fluctuate ~25-50% ensures TID w/ PO 25%/refusing meals. ONS PO ~263-525 kcal and 15-30 g protein. Drank 25% smoothie w/ breakfast PO this AM per RN. AOx1 w/ underlying dementia and bipolar or psychosis per MD note. ALOC likely impacting PO. Will continue smoothies and additional protein/kcal sources since eating somewhat. LBM 11/28. Will continue to monitor. Recommendations: 1) Continue MM5/mechanical soft grind all diet with thin liquids per ST recs 2) Assist with meals; encourage PO intake; appetite stimulant if MD agreeable 3) Yogurt q breakfast, Ensure pudding q lunch, and smoothie TID 4) Ensure Enlive TIDWM 5) Routine bowel care 6) Scaled weight this admit Addendum: 12/01/19 at [address] Amended: Links added.
--- NOTE | 2019-12-01 18:10 | NUR ---
Patient in room [facility]. I have received report from IVÁN AGUILERA and had the opportunity to ask questions and assume patient care. Addendum: 12/01/19 at 1811 by Eulalia Navas RN Amended: Links added.
--- NOTE | 2019-12-01 18:49 | NUR ---
Problems reprioritized. Patient report given, questions answered & plan of care reviewed with ALE DOLL.
[2019-12-01 19:00] VITALS: BP 147/87
--- NOTE | 2019-12-01 19:50 | NUR ---
pt up with assistance to bedside commode to void. she had already been inc of urine. skincare done and lien changed. tolerated well.
--- NOTE | 2019-12-01 20:00 | NUR ---
took hs meds crushed in spoonful of yogurt tolerated well.
[2019-12-01] MEDS: risperiDONE 2mg tablet PO SCH (20:12)
[2019-12-01] MEDS: LORazepam 0.5 MG tablet PO PRN (20:50)
[2019-12-01] MEDS: acetaminophen 325mg tablet PO PRN (20:50)
--- NOTE | 2019-12-01 20:50 | NUR ---
pt yelling out her back hurt and medicated with tylenol and po ativan for this pt at times with issues swallowing so given with few bites of yogurt the swallowed water.
--- NOTE | 2019-12-01 22:05 | NUR ---
pt appears comfortable and resting at this time.
--- NOTE | 2019-12-02 00:22 | NUR ---
RESTING EYES CLOSED WITHOUT CHANGES.
--- NOTE | 2019-12-02 03:17 | NUR ---
Patient in room [facility]. I have received report from Eulalia AGUILERA and had the opportunity to ask questions and assume patient care.
--- NOTE | 2019-12-02 03:20 | NUR ---
Problems reprioritized. Patient report given, questions answered & plan of care reviewed with Meli Costa and resting eyes closed without s&s of distress at this time.. Addendum: 12/02/19 at 0321 by Eulalia Navas RN Amended: Links added.
--- NOTE | 2019-12-02 06:23 | NUR ---
Problems reprioritized. Patient report given, questions answered & plan of care reviewed with Carlene AGUILERA.
--- NOTE | 2019-12-02 06:43 | NUR ---
Patient in room [facility] 357[facility]. I have received report from ALE BOLTON and had the opportunity to ask questions and assume patient care.
[2019-12-02 07:00] VITALS: BP 104/53
[2019-12-02] MEDS: lactose-reduced food (Ensure Enlive) - 237ml bottle PO SCH ×3 (08:00→18:00)
[2019-12-02] MEDS: lactobacillus rhamnosus 10,000 MMU CELLS/CAPSULE PO SCH ×2 (12:11→21:51)
[2019-12-02] MEDS: divalproex sod 125mg sprinkle cap PO SCH ×3 (12:13→19:00)
[2019-12-02] MEDS: atenolol 25mg tablet PO SCH (12:17)
[2019-12-02] MEDS: mineral oil/petrolatum, white cream 113gm jar TP SCH ×2 (12:22→20:00)
--- NOTE | 2019-12-02 18:50 | NUR ---
Patient in room [facility]. I have received report from Carlene AGUILERA and had the opportunity to ask questions and assume patient care.
[2019-12-02 19:00] VITALS: BP 153/79
--- NOTE | 2019-12-02 20:02 | NUR ---
Problems reprioritized. Patient report given, questions answered & plan of care reviewed with ALE BOLTON.
--- NOTE | 2019-12-02 21:00 | NUR ---
Patient in room [facility]. I have received report from Meli AGUILERA and had the opportunity to ask questions and assume patient care.
--- NOTE | 2019-12-02 21:02 | NUR ---
Problems reprioritized. Patient report given, questions answered & plan of care reviewed with Heather AGUILERA.
[2019-12-02] MEDS: acetaminophen 325mg tablet PO PRN (21:51)
[2019-12-02] MEDS: risperiDONE 2mg tablet PO SCH (21:51)
--- NOTE | 2019-12-03 06:00 | NUR ---
Patient in room [facility] 357. I have received report from ALE Romero and had the opportunity to ask questions and assume patient care.
--- NOTE | 2019-12-03 06:15 | NUR ---
Problems reprioritized. Patient report given, questions answered & plan of care reviewed with Jonnathan AGUILERA.
[2019-12-03 07:00] VITALS: BP 105/51
[2019-12-03] MEDS: lactose-reduced food (Ensure Enlive) - 237ml bottle PO SCH ×3 (08:00→18:19)
[2019-12-03] MEDS: atenolol 25mg tablet PO SCH (09:53)
[2019-12-03] MEDS: lactobacillus rhamnosus 10,000 MMU CELLS/CAPSULE PO SCH ×2 (09:54→21:43)
[2019-12-03] MEDS: divalproex sod 125mg sprinkle cap PO SCH ×3 (09:54→16:47)
[2019-12-03] MEDS: mineral oil/petrolatum, white cream 113gm jar TP SCH ×2 (09:55→21:44)
[2019-12-03 11:00] VITALS: BP 119/69
[2019-12-03 18:00] VITALS: BP 176/86
--- NOTE | 2019-12-03 18:30 | NUR ---
Patient in room [facility]. I have received report from ENRICO AGUILERA and had the opportunity to ask questions and assume patient care.
[2019-12-03] MEDS: risperiDONE 2mg tablet PO SCH (21:43)
[2019-12-04] VITALS: BP 94/45
--- NOTE | 2019-12-04 06:00 | NUR ---
Patient in room [facility]. I have received report from ALE Shukla and had the opportunity to ask questions and assume patient care.
--- NOTE | 2019-12-04 06:07 | NUR ---
Problems reprioritized. Patient report given, questions answered & plan of care reviewed with ENRICO AGUILERA.
[2019-12-04 08:00] VITALS: BP 110/60
[2019-12-04] MEDS: lactobacillus rhamnosus 10,000 MMU CELLS/CAPSULE PO SCH ×2 (08:00→19:49)
[2019-12-04] MEDS: lactose-reduced food (Ensure Enlive) - 237ml bottle PO SCH ×3 (08:00→19:00)
[2019-12-04] MEDS: atenolol 25mg tablet PO SCH (08:00)
[2019-12-04] MEDS: divalproex sod 125mg sprinkle cap PO SCH ×4 (08:00→17:15)
[2019-12-04] MEDS: mineral oil/petrolatum, white cream 113gm jar TP SCH ×2 (08:00→19:50)
[2019-12-04 12:00] VITALS: BP 130/67
--- NOTE | 2019-12-04 14:38 | NUR ---
F/u 12/03: Pt PO consistent w/ prior intake though still fluctuating ~25-50% ONS and 25% vs. refusing meals. BILLY d/w RN regarding appetite; RN reports pt still receiving feeder w/ meals not drinking much of smoothies at this time but is eating ensure puddings w/ lunches and enjoys ensure enlives. LBM 11/30. Noted pt refusing most meds/resistive to care today except for depakote and risperidone. Last labs taken 10/19 per EMR. Partially meeting needs given IBW since no scaled wt this admit. IF becomes more receptive to PO meds may benefit from appetite stimulant if MD agreeable. Will continue to monitor. Recommendations: 1) Continue MM5/mechanical soft grind all diet with thin liquids per ST recs 2) Assist with meals; encourage PO intake; appetite stimulant if MD agreeable 3) Yogurt q breakfast, Ensure pudding q lunch, and smoothie TID 4) Ensure Enlive TIDWM 5) Routine bowel care 6) Scaled weight this admit Addendum: 12/04/19 at [address] Amended: Links added.
--- NOTE | 2019-12-04 18:24 | NUR ---
Problems reprioritized. Patient report given, questions answered & plan of care reviewed with ALE Valdivia. Addendum: 12/04/19 at 1825 by Jonnathan Baldwin RN Addendum: Gayla AGUILERA
--- NOTE | 2019-12-04 18:30 | NUR ---
Patient in room [facility]. I have received report from ENRICO AGUILERA and had the opportunity to ask questions and assume patient care.
[2019-12-04] MEDS: risperiDONE 2mg tablet PO SCH (19:49)
[2019-12-04 20:00] VITALS: BP 157/64
--- NOTE | 2019-12-05 06:30 | NUR ---
Problems reprioritized. Patient report given, questions answered & plan of care reviewed with MYLES AGUILERA.
--- NOTE | 2019-12-05 06:50 | NUR ---
Patient in room [facility]. I have received report from ALE Mane and had the opportunity to ask questions and assume patient care.
[2019-12-05 08:00] VITALS: BP 142/77
[2019-12-05] MEDS: mineral oil/petrolatum, white cream 113gm jar TP SCH ×3 (08:00→20:53)
[2019-12-05] MEDS: lactose-reduced food (Ensure Enlive) - 237ml bottle PO SCH ×3 (08:00→18:40)
[2019-12-05] MEDS: atenolol 25mg tablet PO SCH (09:03)
[2019-12-05] MEDS: lactobacillus rhamnosus 10,000 MMU CELLS/CAPSULE PO SCH ×2 (09:04→20:53)
[2019-12-05] MEDS: divalproex sod 125mg sprinkle cap PO SCH ×3 (09:04→17:42)
[2019-12-05 11:00] VITALS: BP 102/61
[2019-12-05 18:00] VITALS: BP 123/73
--- NOTE | 2019-12-05 18:15 | NUR ---
Patient in room [facility] 357. I have received report from Dina AGUILERA and had the opportunity to ask questions and assume patient care.
--- NOTE | 2019-12-05 18:37 | NUR ---
Problems reprioritized. Patient report given, questions answered & plan of care reviewed with ALE Madrigal.
[2019-12-05] MEDS: risperiDONE 2mg tablet PO SCH (20:53)
[2019-12-06] MEDS: baclofen 10mg tablet PO PRN (02:35)
--- NOTE | 2019-12-06 06:18 | NUR ---
Problems reprioritized. Patient report given, questions answered & plan of care reviewed with iDna AGUILERA.
--- NOTE | 2019-12-06 06:25 | NUR ---
Patient in room [facility]. I have received report from ALE Madrigal and had the opportunity to ask questions and assume patient care.
[2019-12-06 08:00] VITALS: BP 103/68
[2019-12-06] MEDS: lactose-reduced food (Ensure Enlive) - 237ml bottle PO SCH ×3 (08:00→13:00)
[2019-12-06] MEDS: mineral oil/petrolatum, white cream 113gm jar TP SCH ×2 (08:00→20:55)
[2019-12-06] MEDS: atenolol 25mg tablet PO SCH (09:06)
[2019-12-06] MEDS: lactobacillus rhamnosus 10,000 MMU CELLS/CAPSULE PO SCH ×2 (09:07→20:52)
[2019-12-06] MEDS: divalproex sod 125mg sprinkle cap PO SCH ×3 (09:07→18:44)
[2019-12-06 11:00] VITALS: BP 107/56
--- NOTE | 2019-12-06 18:46 | NUR ---
Problems reprioritized. Patient report given, questions answered & plan of care reviewed with ALE Mane.
[2019-12-06] MEDS ORDERED: magnesium hydroxide 30ml (MOM) UD suspension PO PRN (18:50)
--- NOTE | 2019-12-06 18:50 | NUR ---
Patient in room [facility]. I have received report from MYLES AGUILERA and had the opportunity to ask questions and assume patient care.
[2019-12-06 20:00] VITALS: BP 140/72
[2019-12-06] MEDS: risperiDONE 2mg tablet PO SCH (20:52)
[2019-12-07] VITALS: BP 93/51
--- NOTE | 2019-12-07 06:31 | NUR ---
Problems reprioritized. Patient report given, questions answered & plan of care reviewed with ELLA AGUILERA.
--- NOTE | 2019-12-07 06:35 | NUR ---
Patient in room [facility]. I have received report from RUPA GOODE RN and had the opportunity to ask questions and assume patient care.
[2019-12-07] MEDS: lactobacillus rhamnosus 10,000 MMU CELLS/CAPSULE PO SCH ×2 (07:55→20:46)
[2019-12-07] MEDS: atenolol 25mg tablet PO SCH (07:55)
[2019-12-07] MEDS: divalproex sod 125mg sprinkle cap PO SCH ×3 (07:56→17:30)
[2019-12-07] MEDS: lactose-reduced food (Ensure Enlive) - 237ml bottle PO SCH ×3 (07:57→18:00)
--- NOTE | 2019-12-07 07:57 | NUR ---
unable to scan ensure drink. manually scanned and opened for pt
[2019-12-07] MEDS: mineral oil/petrolatum, white cream 113gm jar TP SCH ×2 (08:00→20:47)
--- NOTE | 2019-12-07 08:00 | NUR ---
PT REFUSED TO HAVE V/S CHECKED BY PUBLIC ADDRESS SYSTEMS MECHANIC AND BY NURSING. I HAD TO HOLD HER ATENOLOL THIS MORNING DUE TO HER REFUSAL. WILL TRY AGAIN LATER
--- NOTE | 2019-12-07 11:00 | NUR ---
PT LET US CHECK HER V/S. HER BP IS 100/70
[2019-12-07 11:19] VITALS: BP 100/70
--- NOTE | 2019-12-07 17:41 | NUR ---
Problems reprioritized. Patient report given, questions answered & plan of care reviewed with CHE AGUILERA.
--- NOTE | 2019-12-07 18:31 | NUR ---
Patient in room [facility]. I have received report from Alley AGUILERA and had the opportunity to ask questions and assume patient care.
[2019-12-07 19:42] VITALS: BP 159/87
[2019-12-07] MEDS: risperiDONE 2mg tablet PO SCH (20:48)
--- NOTE | 2019-12-08 06:26 | NUR ---
Problems reprioritized. Patient report given, questions answered & plan of care reviewed with Marybel AGUILERA.
[2019-12-08 07:52] VITALS: BP 133/57
[2019-12-08] MEDS: atenolol 25mg tablet PO SCH (08:00)
[2019-12-08] MEDS: divalproex sod 125mg sprinkle cap PO SCH ×3 (08:40→17:38)
[2019-12-08] MEDS: lactobacillus rhamnosus 10,000 MMU CELLS/CAPSULE PO SCH ×2 (08:40→21:03)
[2019-12-08] MEDS: lactose-reduced food (Ensure Enlive) - 237ml bottle PO SCH ×3 (08:53→18:02)
[2019-12-08] MEDS: mineral oil/petrolatum, white cream 113gm jar TP SCH ×2 (08:53→20:00)
[2019-12-08 11:33] VITALS: BP 124/64
--- NOTE | 2019-12-08 16:53 | NUR ---
F/u 12/07: Pt PO slowly improving 50-75% avg meals past 3 days w/ 0-25% ensure enlive TIDWM likely meeting needs w/ help of feeder. AOx1 and confused likely impacting PO hx. Still pending scaled wt this admit. LBM 12/05. Will continue to monitor. Recommendations: 1) Continue MM5/mechanical soft grind all diet with thin liquids per ST recs 2) Assist with meals; encourage PO intake; appetite stimulant if MD agreeable 3) Yogurt q breakfast, Ensure pudding q lunch, and smoothie TID 4) Ensure Enlive TIDWM 5) Routine bowel care 6) Scaled weight this admit Addendum: 12/08/19 at [address] Amended: Links added.
--- NOTE | 2019-12-08 17:34 | NUR ---
Student documentation: I have reviewed and agree with all interventions, assessments performed and documented by Leah HALL from [facility]. Student Medication Administration: For all medication-pass' in the time frame of 3801-2502, all medication were reviewed, dispensed, administered and documented per hospital policy by Leah HALL from [facility].
--- NOTE | 2019-12-08 18:28 | NUR ---
Problems reprioritized. Patient report given, questions answered & plan of care reviewed with Heather AGUILERA.
--- NOTE | 2019-12-08 18:30 | NUR ---
Patient in room [facility]. I have received report from Marybel Costa and had the opportunity to ask questions and assume patient care.
[2019-12-08] MEDS: NICOTINE POLACRILEX 2 MG LOZENGE BC PRN (18:54)
[2019-12-08 19:00] VITALS: BP 145/77
[2019-12-08] MEDS: risperiDONE 2mg tablet PO SCH (21:03)
[2019-12-08] MEDS: baclofen 10mg tablet PO PRN (21:29)
[2019-12-08] MEDS: acetaminophen 325mg tablet PO PRN (21:30)
[2019-12-08 23:00] VITALS: BP 134/72
--- NOTE | 2019-12-09 06:08 | NUR ---
Patient in room [facility]. I have received report from Heather AGUILERA and had the opportunity to ask questions and assume patient care.
--- NOTE | 2019-12-09 06:32 | NUR ---
Problems reprioritized. Patient report given, questions answered & plan of care reviewed with Marybel AGUILERA.
[2019-12-09 06:58] VITALS: BP 157/79
[2019-12-09] MEDS: lactose-reduced food (Ensure Enlive) - 237ml bottle PO SCH ×3 (10:00→18:00)
[2019-12-09] MEDS: mineral oil/petrolatum, white cream 113gm jar TP SCH ×2 (10:00→20:00)
[2019-12-09] MEDS: divalproex sod 125mg sprinkle cap PO SCH ×3 (11:05→17:45)
[2019-12-09] MEDS: lactobacillus rhamnosus 10,000 MMU CELLS/CAPSULE PO SCH ×2 (11:05→20:00)
[2019-12-09] MEDS: atenolol 25mg tablet PO SCH (11:06)
--- NOTE | 2019-12-09 14:44 | NUR ---
Patient refuses lotion to be applied. Addendum: 12/09/19 at 1445 by Marybel Minaya RN Amended: Links added.
--- NOTE | 2019-12-09 18:31 | NUR ---
Problems reprioritized. Patient report given, questions answered & plan of care reviewed with Meli AGUILERA.
--- NOTE | 2019-12-09 19:06 | NUR ---
Patient in room [facility] 357. I have received report from Marybel AGUILERA and had the opportunity to ask questions and assume patient care.
[2019-12-09] MEDS: risperiDONE 2mg tablet PO SCH (21:00)
[2019-12-09 23:48] VITALS: BP 150/74
--- NOTE | 2019-12-10 06:26 | NUR ---
Problems reprioritized. Patient report given, questions answered & plan of care reviewed with Reynaldo AGUILERA.
--- NOTE | 2019-12-10 06:31 | NUR ---
Patient in room [facility]. I have received report from Jennifer AGUILERA & Meli AGUILERA and had the opportunity to ask questions and assume patient care.
[2019-12-10 07:00] VITALS: BP 158/83
[2019-12-10] MEDS: divalproex sod 125mg sprinkle cap PO SCH ×3 (08:00→17:30)
[2019-12-10] MEDS: mineral oil/petrolatum, white cream 113gm jar TP SCH ×2 (08:00→19:53)
[2019-12-10] MEDS: lactobacillus rhamnosus 10,000 MMU CELLS/CAPSULE PO SCH ×2 (08:00→19:52)
[2019-12-10] MEDS: lactose-reduced food (Ensure Enlive) - 237ml bottle PO SCH ×3 (08:00→18:00)
[2019-12-10] MEDS: atenolol 25mg tablet PO SCH (08:00)
--- NOTE | 2019-12-10 17:00 | NUR ---
Student documentation: I have reviewed and agree with all interventions, assessments performed and documented by Sandrita HALL from [facility].
--- NOTE | 2019-12-10 18:30 | NUR ---
I have received report from Barbi AGUILERA and had the opportunity to ask questions and assume patient care.
--- NOTE | 2019-12-10 18:45 | NUR ---
Problems reprioritized. Patient report given, questions answered & plan of care reviewed with Lavonne AGUILERA..
[2019-12-10] MEDS: risperiDONE 2mg tablet PO SCH (19:52)
[2019-12-10 20:00] VITALS: BP 156/82
[2019-12-10] MEDS: LORazepam 0.5 MG tablet PO PRN (20:32)
--- NOTE | 2019-12-11 03:41 | NUR ---
pts left heel looked red. i put the pillow under the pt to float heels. pt screamed and stated "there are too many pillow". pt pulled pillow out and refused to have pillow under ankles to float heels
--- NOTE | 2019-12-11 06:22 | NUR ---
Problems reprioritized. Patient report given, questions answered & plan of care reviewed with Jonnathan AGUILERA.
--- NOTE | 2019-12-11 06:56 | NUR ---
Patient in room [facility] 357. I have received report from ALE Banerjee and had the opportunity to ask questions and assume patient care.
[2019-12-11 07:26] VITALS: BP 135/83
[2019-12-11] MEDS: lactose-reduced food (Ensure Enlive) - 237ml bottle PO SCH ×3 (08:00→19:10)
[2019-12-11] MEDS: mineral oil/petrolatum, white cream 113gm jar TP SCH ×2 (08:00→20:29)
[2019-12-11] MEDS: lactobacillus rhamnosus 10,000 MMU CELLS/CAPSULE PO SCH ×2 (08:58→20:28)
[2019-12-11] MEDS: divalproex sod 125mg sprinkle cap PO SCH ×3 (08:59→16:36)
[2019-12-11] MEDS: atenolol 25mg tablet PO SCH (09:00)
[2019-12-11 11:00] VITALS: BP 93/49
--- NOTE | 2019-12-11 17:24 | NUR ---
Patient mattress exchanged as prior one was saturated w urine. Patient showered today. Patient received a new wic.
[2019-12-11 18:00] VITALS: BP 123/58
[2019-12-11] MEDS: acetaminophen 325mg tablet PO PRN (18:05)
--- NOTE | 2019-12-11 18:28 | NUR ---
Received report from ALE De Santiago. Patient is awake and alert on room air, in no apparent distress. Call light and items of frequent use within reach. Will continue to monitor.
--- NOTE | 2019-12-11 18:47 | NUR ---
Problems reprioritized. Patient report given, questions answered & plan of care reviewed with ALE Banerjee.
[2019-12-11] MEDS: risperiDONE 2mg tablet PO SCH (20:29)
[2019-12-11] MEDS: LORazepam 0.5 MG tablet PO PRN (22:50)
[2019-12-12] VITALS: BP 134/71
--- NOTE | 2019-12-12 06:27 | NUR ---
Problems reprioritized. Patient report given, questions answered & plan of care reviewed with ALE Jorge.
[2019-12-12 07:00] VITALS: BP 127/69
[2019-12-12] MEDS: mineral oil/petrolatum, white cream 113gm jar TP SCH ×2 (08:00→20:00)
[2019-12-12] MEDS: lactose-reduced food (Ensure Enlive) - 237ml bottle PO SCH ×4 (08:00→18:48)
[2019-12-12] MEDS: lactobacillus rhamnosus 10,000 MMU CELLS/CAPSULE PO SCH ×2 (09:15→21:05)
[2019-12-12] MEDS: acetaminophen 325mg tablet PO PRN (09:15)
[2019-12-12] MEDS: atenolol 25mg tablet PO SCH (09:16)
[2019-12-12] MEDS: divalproex sod 125mg sprinkle cap PO SCH ×3 (09:18→17:30)
[2019-12-12 09:30] VITALS: BP 136/55
[2019-12-12 18:00] VITALS: BP 116/60
[2019-12-12] MEDS: baclofen 10mg tablet PO PRN (19:06)
[2019-12-12] MEDS: NICOTINE POLACRILEX 2 MG LOZENGE BC PRN (19:06)
--- NOTE | 2019-12-12 19:07 | NUR ---
Gave report to Temi AGUILERA.
[2019-12-12] MEDS: risperiDONE 2mg tablet PO SCH (21:05)
[2019-12-12] MEDS: LORazepam 0.5 MG tablet PO PRN (21:05)
--- NOTE | 2019-12-13 06:38 | NUR ---
Problems reprioritized. Patient report given, questions answered & plan of care reviewed with Rosa Maria AGUILERA. Addendum: 12/13/19 at 0638 by Temi Tompkins RN Amended: Links added.
--- NOTE | 2019-12-13 06:43 | NUR ---
Patient in room [facility]. I have received report from ALE Membreno and had the opportunity to ask questions and assume patient care.
[2019-12-13 08:00] VITALS: BP 113/54
[2019-12-13] MEDS: mineral oil/petrolatum, white cream 113gm jar TP SCH ×2 (08:00→20:00)
[2019-12-13] MEDS: divalproex sod 125mg sprinkle cap PO SCH ×3 (08:00→17:30)
[2019-12-13] MEDS: atenolol 25mg tablet PO SCH (08:00)
[2019-12-13] MEDS: lactobacillus rhamnosus 10,000 MMU CELLS/CAPSULE PO SCH ×2 (08:00→18:35)
--- NOTE | 2019-12-13 11:30 | NUR ---
Reassessment: Patient's PO intake fluctuates though appears to be improving. Since last RD assessment (12/07) pt with 0-25% PO intake up to 50% PO intake with 75-100% PO intake since 12/11. Pt with average 25% PO intake of ONS however documented to have consumed 100% with dinner last night and 75% with breakfast this morning. Pt meeting estimated nutrient needs at this time. LBM 12/10. No further nutrition intervention implemented at this time. Will continue to follow. Recommendations: 1) Continue MM5/mechanical soft grind all diet with thin liquids per ST recs 2) Assist with meals; encourage PO intake; appetite stimulant if MD agreeable 3) Yogurt q breakfast, Ensure pudding q lunch, and smoothie TID 4) Ensure Enlive TIDWM 5) Routine bowel care 6) Scaled weight this admit Addendum: 12/13/19 at [address] Amended: Links added.
[2019-12-13 12:00] VITALS: BP 113/43
[2019-12-13] MEDS: lactose-reduced food (Ensure Enlive) - 237ml bottle PO SCH ×2 (13:00→18:14)
--- NOTE | 2019-12-13 15:01 | NUR ---
Patient in room [facility]. I have received report from Rosa Maria and had the opportunity to ask questions and assume patient care.
--- NOTE | 2019-12-13 15:05 | NUR ---
Problems reprioritized. Patient report given, questions answered & plan of care reviewed with ALE Crum.
--- NOTE | 2019-12-13 15:25 | NUR ---
Pt arrived on the floor, tucked in, provided comfort measures, pt does not have concerns at this time
--- NOTE | 2019-12-13 15:26 | NUR ---
Pt transported to ortho floor on hospital bed, with all belongings. Addendum: 12/13/19 at 1528 by Rosa Maria Zuñiga RN room 4020B
[2019-12-13] MEDS: acetaminophen 325mg tablet PO PRN (15:55)
[2019-12-13 18:00] VITALS: BP 107/57
--- NOTE | 2019-12-13 18:17 | NUR ---
Problems reprioritized. Patient report given, questions answered & plan of care reviewed with Temi.
[2019-12-13] MEDS: baclofen 10mg tablet PO PRN (18:35)
[2019-12-13] MEDS: risperiDONE 2mg tablet PO SCH (21:27)
[2019-12-13] MEDS: LORazepam 0.5 MG tablet PO PRN (21:27)
[2019-12-13] MEDS: NICOTINE POLACRILEX 2 MG LOZENGE BC PRN (21:46)
[2019-12-14] VITALS: BP 116/63
[2019-12-14] MEDS: acetaminophen 325mg tablet PO PRN ×2 (03:27→17:25)
--- NOTE | 2019-12-14 06:00 | NUR ---
Patient in room ORTHO 4020. I have received report from AisleFinder and had the opportunity to ask questions and assume patient care.
--- NOTE | 2019-12-14 06:28 | NUR ---
Problems reprioritized. Patient report given, questions answered & plan of care reviewed with Velma AGUILERA. Addendum: 12/14/19 at 0629 by Temi Tompkins RN Amended: Links added.
[2019-12-14] MEDS: lactose-reduced food (Ensure Enlive) - 237ml bottle PO SCH ×3 (08:00→18:00)
[2019-12-14] MEDS: mineral oil/petrolatum, white cream 113gm jar TP SCH ×2 (08:00→19:53)
[2019-12-14] MEDS: atenolol 25mg tablet PO SCH (08:00)
[2019-12-14] MEDS: divalproex sod 125mg sprinkle cap PO SCH ×3 (08:00→15:07)
[2019-12-14] MEDS: lactobacillus rhamnosus 10,000 MMU CELLS/CAPSULE PO SCH ×2 (08:00→19:53)
--- NOTE | 2019-12-14 09:13 | NUR ---
Patient not wanting to wake up to take meds. Breathing is fine just doesnt want to get up. Will continue to monitor for morning meds
[2019-12-14] MEDS: LORazepam 0.5 MG tablet PO PRN (17:45)
[2019-12-14] MEDS: NICOTINE POLACRILEX 2 MG LOZENGE BC PRN ×2 (17:46→19:53)
[2019-12-14 18:00] VITALS: BP 131/78
--- NOTE | 2019-12-14 18:20 | NUR ---
Problems reprioritized. Patient report given, questions answered & plan of care reviewed with Clary.
--- NOTE | 2019-12-14 18:32 | NUR ---
Patient in room [facility]TH[facility] 4020. I have received report from bruce west and had the opportunity to ask questions and assume patient care.
[2019-12-14] MEDS: risperiDONE 2mg tablet PO SCH (19:53)
[2019-12-14 22:00] VITALS: BP 131/73
[2019-12-15 06:00] VITALS: BP 144/86
--- NOTE | 2019-12-15 06:20 | NUR ---
Problems reprioritized. Patient report given, questions answered & plan of care reviewed with ALE VYAS.
[2019-12-15] MEDS: lactose-reduced food (Ensure Enlive) - 237ml bottle PO SCH ×3 (08:00→18:28)
[2019-12-15] MEDS: divalproex sod 125mg sprinkle cap PO SCH ×4 (08:00→18:26)
[2019-12-15] MEDS: mineral oil/petrolatum, white cream 113gm jar TP SCH ×2 (08:00→20:00)
[2019-12-15 10:00] VITALS: BP 142/71
[2019-12-15] MEDS: lactobacillus rhamnosus 10,000 MMU CELLS/CAPSULE PO SCH ×2 (12:09→20:24)
[2019-12-15] MEDS: atenolol 25mg tablet PO SCH (12:13)
[2019-12-15 18:00] VITALS: BP 112/55
[2019-12-15] MEDS: risperiDONE 2mg tablet PO SCH (20:24)
[2019-12-15 22:00] VITALS: BP 121/77
--- NOTE | 2019-12-16 02:59 | NUR ---
Transfer pt to Med/Surg rm 359a, and Report given to ALE Suarez. All meds and personal belongings sent with patient.
--- NOTE | 2019-12-16 03:01 | NUR ---
Patient in room [facility]. I have received report from Ronnie AGUILERA and had the opportunity to ask questions and assume patient care.
--- NOTE | 2019-12-16 05:07 | NUR ---
I agree with the assessment from Rosamaria.
[2019-12-16 06:00] VITALS: BP 130/63
--- NOTE | 2019-12-16 06:30 | NUR ---
Problems reprioritized. Patient report given, questions answered & plan of care reviewed with Tia AGUILERA.
--- NOTE | 2019-12-16 06:45 | NUR ---
Patient in room [facility]. I have received report from Marisela AGUILERA and had the opportunity to ask questions and assume patient care.
[2019-12-16] MEDS: lactose-reduced food (Ensure Enlive) - 237ml bottle PO SCH ×3 (08:00→18:02)
--- NOTE | 2019-12-16 08:30 | NUR ---
Patient refused to take off socks to assess heels and palpation of the abdomen during physical assessment.
[2019-12-16] MEDS: lactobacillus rhamnosus 10,000 MMU CELLS/CAPSULE PO SCH ×2 (09:11→19:57)
[2019-12-16] MEDS: divalproex sod 125mg sprinkle cap PO SCH ×3 (09:12→18:02)
[2019-12-16] MEDS: mineral oil/petrolatum, white cream 113gm jar TP SCH ×2 (09:13→20:00)
[2019-12-16] MEDS: atenolol 25mg tablet PO SCH (09:13)
--- NOTE | 2019-12-16 09:39 | NUR ---
Attempted to reposition patient to right side since she has been lying on left side. Patient refused and stated "stop". However, I was able to float her heels.
[2019-12-16] MEDS: acetaminophen 325mg tablet PO PRN ×2 (10:30→17:38)
--- NOTE | 2019-12-16 11:24 | NUR ---
Student documentation: I have reviewed and agree with all interventions, assessments performed and documented by Natasha, student worker.
--- NOTE | 2019-12-16 11:25 | NUR ---
Student Medication Administration: For this medication-pass time frame, all medication were reviewed, dispensed, administered and documented per hospital policy by Natasha student success counselor.
[2019-12-16 18:00] VITALS: BP 105/59
--- NOTE | 2019-12-16 18:53 | NUR ---
Problems reprioritized. Patient report given, questions answered & plan of care reviewed with Maura AGUILERA.
[2019-12-16] MEDS: risperiDONE 2mg tablet PO SCH (20:00)
--- NOTE | 2019-12-17 06:34 | NUR ---
Problems reprioritized. Patient report given, questions answered & plan of care reviewed with Reynaldo AGUILERA.
--- NOTE | 2019-12-17 06:37 | NUR ---
Patient in room [facility]. I have received report from Maura AGUILERA and had the opportunity to ask questions and assume patient care.
[2019-12-17 07:00] VITALS: BP 123/68
[2019-12-17] MEDS: atenolol 25mg tablet PO SCH (08:00)
[2019-12-17] MEDS: lactobacillus rhamnosus 10,000 MMU CELLS/CAPSULE PO SCH ×2 (08:23→21:24)
[2019-12-17] MEDS: divalproex sod 125mg sprinkle cap PO SCH ×3 (08:24→17:42)
[2019-12-17] MEDS: lactose-reduced food (Ensure Enlive) - 237ml bottle PO SCH ×3 (08:24→18:04)
[2019-12-17] MEDS: mineral oil/petrolatum, white cream 113gm jar TP SCH ×2 (08:27→20:00)
--- NOTE | 2019-12-17 10:27 | NUR ---
Reassessment: Pt continues with average 50% PO intake of meals up to 100% at breakfast this morning. PO intake of ONS fluctuates, documented with 100% and 25% with occasional refusals. Overall pt continues meeting estimated nutrient needs with combined PO intake of meals and ONS. LBM 12/10, PRN bowel care available. D/w dietary to send prune juice with next meal to assist with bowel regularity. Will continue to follow and monitor need for further nutrition intervention. Recommendations: 1) Continue MM5/mechanical soft grind all diet with thin liquids per ST recs 2) Assist with meals; encourage PO intake; appetite stimulant if MD agreeable 3) Yogurt q breakfast, Ensure pudding q lunch, and smoothie TID 4) Ensure Enlive TIDWM 5) Routine bowel care 6) Scaled weight this admit Addendum: 12/17/19 at [address] Amended: Links added.
--- NOTE | 2019-12-17 12:41 | NUR ---
Per record, patient's last BM was 12/11/19. I offered milk of magnesia for constipation,patient refused.
[2019-12-17 18:00] VITALS: BP 140/71
[2019-12-17] MEDS: baclofen 10mg tablet PO PRN (18:04)
--- NOTE | 2019-12-17 18:51 | NUR ---
Problems reprioritized. Patient report given, questions answered & plan of care reviewed with Lavonne AGUILERA.
--- NOTE | 2019-12-17 19:21 | NUR ---
I have received report from Barbi AGUILERA and had the opportunity to ask questions and assume patient care.
[2019-12-17] MEDS: risperiDONE 2mg tablet PO SCH (21:24)
--- NOTE | 2019-12-18 06:20 | NUR ---
Problems reprioritized. Patient report given, questions answered & plan of care reviewed with Barbi AGUILERA.
--- NOTE | 2019-12-18 06:22 | NUR ---
Patient in room [facility]. I have received report from Lavonne AGUILERA and had the opportunity to ask questions and assume patient care.
[2019-12-18 08:00] VITALS: BP 148/69
[2019-12-18] MEDS: lactose-reduced food (Ensure Enlive) - 237ml bottle PO SCH ×3 (08:00→17:50)
[2019-12-18] MEDS: mineral oil/petrolatum, white cream 113gm jar TP SCH ×2 (08:00→20:00)
[2019-12-18] MEDS: atenolol 25mg tablet PO SCH (08:00)
[2019-12-18] MEDS: divalproex sod 125mg sprinkle cap PO SCH ×3 (08:00→16:47)
[2019-12-18] MEDS: lactobacillus rhamnosus 10,000 MMU CELLS/CAPSULE PO SCH ×2 (08:00→20:26)
--- NOTE | 2019-12-18 09:06 | NUR ---
Patient refused her scheduled morning meds including milk of magnesia for constipation. Instructed patient to let me know if she changed her mind after explaining to her what she will be taking and the indications.
--- NOTE | 2019-12-18 15:48 | NUR ---
Patient in room [facility]. I have received report from ALE Jacobs and had the opportunity to ask questions and assume patient care. Patient is sitting up in chair. No complaints at this time.
--- NOTE | 2019-12-18 15:48 | NUR ---
Report given to Beverly AGUILERA
[2019-12-18] MEDS: acetaminophen 325mg tablet PO PRN (16:48)
--- NOTE | 2019-12-18 18:17 | NUR ---
Problems reprioritized. Patient report given, questions answered & plan of care reviewed with ALE Cannon.
--- NOTE | 2019-12-18 18:36 | NUR ---
Patient in room [facility]. I have received report from ALE Garcia and had the opportunity to ask questions and assume patient care.
[2019-12-18 18:50] VITALS: BP 142/76
[2019-12-18] MEDS: baclofen 10mg tablet PO PRN (20:25)
[2019-12-18] MEDS: risperiDONE 2mg tablet PO SCH (20:26)
--- NOTE | 2019-12-19 06:32 | NUR ---
Problems reprioritized. Patient report given, questions answered & plan of care reviewed with ALE Beltrán.
[2019-12-19 07:00] VITALS: BP 133/77
[2019-12-19] MEDS: mineral oil/petrolatum, white cream 113gm jar TP SCH ×2 (08:00→19:52)
[2019-12-19] MEDS: lactobacillus rhamnosus 10,000 MMU CELLS/CAPSULE PO SCH ×2 (08:43→19:53)
[2019-12-19] MEDS: divalproex sod 125mg sprinkle cap PO SCH ×3 (08:43→18:27)
[2019-12-19] MEDS: acetaminophen 325mg tablet PO PRN ×2 (08:44→19:59)
[2019-12-19] MEDS: lactose-reduced food (Ensure Enlive) - 237ml bottle PO SCH ×3 (08:45→18:27)
[2019-12-19] MEDS: atenolol 25mg tablet PO SCH (08:45)
[2019-12-19] MEDS: baclofen 10mg tablet PO PRN (09:36)
[2019-12-19 18:00] VITALS: BP 127/74
--- NOTE | 2019-12-19 18:22 | NUR ---
Problems reprioritized. Patient report given, questions answered & plan of care reviewed with ALE Valdivia.
--- NOTE | 2019-12-19 18:28 | NUR ---
Patient in room [facility]. I have received report from ALE Beltrán and had the opportunity to ask questions and assume patient care.
[2019-12-19] MEDS: risperiDONE 2mg tablet PO SCH (19:53)
--- NOTE | 2019-12-20 06:39 | NUR ---
Problems reprioritized. Patient report given, questions answered & plan of care reviewed with ALE Lan.
--- NOTE | 2019-12-20 07:04 | NUR ---
Patient in room [facility]. I have received report from ALE Valdivia and had the opportunity to ask questions and assume patient care.
[2019-12-20 07:51] VITALS: BP 94/59
[2019-12-20] MEDS: mineral oil/petrolatum, white cream 113gm jar TP SCH ×2 (08:00→20:00)
[2019-12-20] MEDS: lactose-reduced food (Ensure Enlive) - 237ml bottle PO SCH ×4 (08:00→18:44)
[2019-12-20] MEDS: divalproex sod 125mg sprinkle cap PO SCH ×3 (12:30→17:42)
[2019-12-20] MEDS: atenolol 25mg tablet PO SCH (12:58)
[2019-12-20] MEDS: lactobacillus rhamnosus 10,000 MMU CELLS/CAPSULE PO SCH ×3 (12:58→21:01)
[2019-12-20] MEDS: acetaminophen 325mg tablet PO PRN (15:43)
[2019-12-20 18:00] VITALS: BP 106/69
--- NOTE | 2019-12-20 18:31 | NUR ---
Problems reprioritized. Patient report given, questions answered & plan of care reviewed with ALE Valdivia.
--- NOTE | 2019-12-20 18:45 | NUR ---
Patient in room [facility]. I have received report from ALE Lan and had the opportunity to ask questions and assume patient care.
[2019-12-20] MEDS: risperiDONE 2mg tablet PO SCH ×2 (21:00→21:01)
[2019-12-20] MEDS: baclofen 10mg tablet PO PRN ×2 (21:01→22:13)
[2019-12-21] MEDS: baclofen 10mg tablet PO PRN (03:54)
[2019-12-21 07:00] VITALS: BP 131/58
--- NOTE | 2019-12-21 08:08 | NUR ---
Student documentation: I have reviewed and agree with all interventions, assessments performed and documented by Brenna Martinez Student Nurse. Student Medication Administration: For this medication-pass time frame, all medication were reviewed, dispensed, administered and documented per hospital policy by Juan Dotson Student Nurse.
--- NOTE | 2019-12-21 08:09 | NUR ---
Problems reprioritized. Patient report given, questions answered & plan of care reviewed with ALE Weber.
[2019-12-21] MEDS: lactobacillus rhamnosus 10,000 MMU CELLS/CAPSULE PO SCH ×2 (08:17→20:10)
[2019-12-21] MEDS: divalproex sod 125mg sprinkle cap PO SCH ×3 (08:18→17:30)
[2019-12-21] MEDS: atenolol 25mg tablet PO SCH (08:19)
[2019-12-21] MEDS: mineral oil/petrolatum, white cream 113gm jar TP SCH ×2 (08:20→20:10)
[2019-12-21] MEDS: lactose-reduced food (Ensure Enlive) - 237ml bottle PO SCH ×2 (13:14→18:00)
[2019-12-21] MEDS: risperiDONE 2mg tablet PO SCH (20:10)
--- NOTE | 2019-12-22 06:35 | NUR ---
Problems reprioritized. Patient report given, questions answered & plan of care reviewed with ALE FIGUEROA.
[2019-12-22 07:00] VITALS: BP 145/76
[2019-12-22] MEDS: mineral oil/petrolatum, white cream 113gm jar TP SCH ×2 (08:00→20:00)
[2019-12-22] MEDS: lactose-reduced food (Ensure Enlive) - 237ml bottle PO SCH ×3 (08:00→18:14)
[2019-12-22] MEDS: atenolol 25mg tablet PO SCH (08:00)
[2019-12-22] MEDS: divalproex sod 125mg sprinkle cap PO SCH ×4 (08:00→17:49)
[2019-12-22] MEDS: lactobacillus rhamnosus 10,000 MMU CELLS/CAPSULE PO SCH ×3 (08:00→20:36)
[2019-12-22 11:00] VITALS: BP 123/65
--- NOTE | 2019-12-22 15:50 | NUR ---
Reassessment: Pt average 50% PO intake of meals with feeder, refused lunch and dinner 12/20 and breakfast this morning. Pt had 100% of protein intake and 50% milk for lunch. PO intake of ONS fluctuates, documented with 50-75% with occasional refusals. Overall pt continues meeting estimated nutrient needs with combined PO intake of meals and ONS. LBM 12/19, PRN bowel care available. Will continue to follow and monitor need for further nutrition intervention. Recommendations: 1) Continue MM5/mechanical soft grind all diet with thin liquids per ST recs 2) Assist with meals; encourage PO intake; appetite stimulant if MD agreeable 3) Yogurt q breakfast, Ensure pudding q lunch, and smoothie TID 4) Ensure Enlive TIDWM 5) Routine bowel care 6) Scaled weight this admit Addendum: 12/22/19 at [address] Amended: Links added. Addendum: 12/22/19 at [address] BILLY [place]
--- NOTE | 2019-12-22 18:15 | NUR ---
Patient in room [facility]. I have received report from Stephen AGUILERA and had the opportunity to ask questions and assume patient care.
--- NOTE | 2019-12-22 18:52 | NUR ---
Problems reprioritized. Patient report given, questions answered & plan of care reviewed with Maura AGUILERA.
[2019-12-22 20:00] VITALS: BP 144/81
[2019-12-22] MEDS: risperiDONE 2mg tablet PO SCH (20:36)
[2019-12-22] MEDS: baclofen 10mg tablet PO PRN (23:04)
--- NOTE | 2019-12-23 06:12 | NUR ---
Problems reprioritized. Patient report given, questions answered & plan of care reviewed with Alley AGUILERA.
--- NOTE | 2019-12-23 06:45 | NUR ---
Patient in room [facility]. I have received report from LOKESH AGUILERA and had the opportunity to ask questions and assume patient care.
[2019-12-23 08:00] VITALS: BP 103/62
[2019-12-23] MEDS: mineral oil/petrolatum, white cream 113gm jar TP SCH ×2 (08:00→20:00)
[2019-12-23] MEDS: lactose-reduced food (Ensure Enlive) - 237ml bottle PO SCH ×4 (08:00→20:00)
[2019-12-23] MEDS: lactobacillus rhamnosus 10,000 MMU CELLS/CAPSULE PO SCH ×2 (10:12→20:41)
[2019-12-23] MEDS: divalproex sod 125mg sprinkle cap PO SCH ×3 (10:16→17:36)
[2019-12-23] MEDS: atenolol 25mg tablet PO SCH (10:17)
[2019-12-23] MEDS: acetaminophen 325mg tablet PO PRN (10:27)
--- NOTE | 2019-12-23 17:21 | NUR ---
Problems reprioritized. Patient report given, questions answered & plan of care reviewed with LOKESH AGUILERA.
[2019-12-23 20:00] VITALS: BP 116/58
[2019-12-23] MEDS: risperiDONE 2mg tablet PO SCH (20:41)
--- NOTE | 2019-12-24 06:23 | NUR ---
Problems reprioritized. Patient report given, questions answered & plan of care reviewed with Marybel AGUILERA.
--- NOTE | 2019-12-24 06:25 | NUR ---
I have received report from Maura AGUILERA and had the opportunity to ask questions and assume patient care.
[2019-12-24] MEDS: atenolol 25mg tablet PO SCH (08:00)
[2019-12-24] MEDS: lactobacillus rhamnosus 10,000 MMU CELLS/CAPSULE PO SCH ×2 (08:23→19:39)
[2019-12-24] MEDS: divalproex sod 125mg sprinkle cap PO SCH ×3 (08:23→16:36)
[2019-12-24] MEDS: mineral oil/petrolatum, white cream 113gm jar TP SCH ×2 (08:24→19:44)
[2019-12-24 09:13] VITALS: BP 98/52
--- NOTE | 2019-12-24 10:00 | NUR ---
Sleeping and refused, states "get out of here." Addendum: 12/24/19 at 1450 by Marybel Minaya RN Amended: Links added.
[2019-12-24] MEDS: lactose-reduced food (Ensure Enlive) - 237ml bottle PO SCH ×2 (13:00→19:43)
--- NOTE | 2019-12-24 18:29 | NUR ---
Problems reprioritized. Patient report given, questions answered & plan of care reviewed with Veronica AGUILERA.
--- NOTE | 2019-12-24 18:30 | NUR ---
Patient in room [facility]. I have received report from ALE No and had the opportunity to ask questions and assume patient care. Pt sleeping rr wnl refused dinner. Addendum: 12/24/19 at 1908 by Steve Buchanan RN Amended: Links added.
--- NOTE | 2019-12-24 19:07 | NUR ---
sleeping rr wnl easily aroused refused dinner at this time when offered. Addendum: 12/24/19 at 1907 by Steve Buchanan RN Amended: Links added.
[2019-12-24 19:35] VITALS: BP 164/88
[2019-12-24] MEDS: risperiDONE 2mg tablet PO SCH (19:39)
[2019-12-24 19:50] VITALS: BP 164/88
[2019-12-24] MEDS: acetaminophen 325mg tablet PO PRN (20:05)
[2019-12-24] MEDS: baclofen 10mg tablet PO PRN (20:06)
--- NOTE | 2019-12-24 20:30 | NUR ---
trisha diehl states painful, pain medication given poc in chair Addendum: 12/24/19 at 2113 by Steve Buchanan RN Amended: Links added.
--- NOTE | 2019-12-25 01:22 | NUR ---
inc of urine yells when repositioned. Addendum: 12/25/19 at 0124 by Steve Buchanan RN Amended: Links added.
--- NOTE | 2019-12-25 05:40 | NUR ---
up to chair drinking coffee, inc in bed linen change janine care. tabs unit oracle ascp consultant light in reach Addendum: 12/25/19 at 0610 by Steve Buchanan RN Amended: Links added.
--- NOTE | 2019-12-25 06:31 | NUR ---
Problems reprioritized. Patient report given, questions answered & plan of care reviewed with ALE Up. Addendum: 12/25/19 at 0631 by Steve Buchanan RN Amended: Links added.
--- NOTE | 2019-12-25 06:37 | NUR ---
Patient in room [facility]. I have received report from Veronica AGUILERA and had the opportunity to ask questions and assume patient care.
[2019-12-25 07:37] VITALS: BP 128/80
[2019-12-25] MEDS: divalproex sod 125mg sprinkle cap PO SCH ×3 (07:50→17:35)
[2019-12-25] MEDS: atenolol 25mg tablet PO SCH (07:50)
[2019-12-25] MEDS: lactobacillus rhamnosus 10,000 MMU CELLS/CAPSULE PO SCH ×2 (07:50→20:23)
[2019-12-25] MEDS: baclofen 10mg tablet PO PRN (07:51)
[2019-12-25] MEDS: lactose-reduced food (Ensure Enlive) - 237ml bottle PO SCH ×4 (07:54→20:00)
[2019-12-25] MEDS: mineral oil/petrolatum, white cream 113gm jar TP SCH ×2 (07:55→20:00)
[2019-12-25] MEDS: acetaminophen 325mg tablet PO PRN (15:17)
--- NOTE | 2019-12-25 18:14 | NUR ---
Problems reprioritized. Patient report given, questions answered & plan of care reviewed with Agata Dacosta RN.
--- NOTE | 2019-12-25 19:05 | NUR ---
Patient in room [facility]. I have received report from ALE Up and had the opportunity to ask questions and assume patient care. Addendum: 12/25/19 at 1906 by Lamar Moon RN Amended: Links added.
--- NOTE | 2019-12-25 19:07 | NUR ---
Patient in room [facility]. I have received report from ALE Up and had the opportunity to ask questions and assume patient care. Addendum: 12/25/19 at 1908 by Lamar Moon RN Amended: Links added.
[2019-12-25 20:00] VITALS: BP 104/63
[2019-12-25] MEDS: risperiDONE 2mg tablet PO SCH (20:23)
--- NOTE | 2019-12-25 23:10 | NUR ---
pt refused eucerin Addendum: 12/25/19 at 2310 by Lamar Moon RN Amended: Links added.
--- NOTE | 2019-12-26 06:32 | NUR ---
Problems reprioritized. Patient report given, questions answered & plan of care reviewed with ALE Up.
--- NOTE | 2019-12-26 06:39 | NUR ---
Patient in room [facility]. I have received report from Agata Dacosta RN and had the opportunity to ask questions and assume patient care.
[2019-12-26 07:14] VITALS: BP 141/66
[2019-12-26] MEDS: mineral oil/petrolatum, white cream 113gm jar TP SCH ×2 (08:00→21:11)
[2019-12-26] MEDS: lactobacillus rhamnosus 10,000 MMU CELLS/CAPSULE PO SCH ×3 (09:00→21:09)
[2019-12-26] MEDS: divalproex sod 125mg sprinkle cap PO SCH ×3 (09:00→17:37)
[2019-12-26] MEDS: atenolol 25mg tablet PO SCH (09:01)
[2019-12-26 12:43] VITALS: BP 109/65
[2019-12-26] MEDS: lactose-reduced food (Ensure Enlive) - 237ml bottle PO SCH ×2 (12:51→18:24)
[2019-12-26] MEDS: baclofen 10mg tablet PO PRN (13:37)
[2019-12-26 18:00] VITALS: BP 152/89
--- NOTE | 2019-12-26 18:24 | NUR ---
Problems reprioritized. Patient report given, questions answered & plan of care reviewed with Venice AGUILERA.
--- NOTE | 2019-12-26 18:30 | NUR ---
Patient in room [facility]. I have received report from Annel AGUILERA and had the opportunity to ask questions and assume patient care.
[2019-12-26] MEDS: acetaminophen 325mg tablet PO PRN (19:18)
[2019-12-26] MEDS: risperiDONE 2mg tablet PO SCH ×2 (21:08→21:09)
[2019-12-27] VITALS: BP 113/67
--- NOTE | 2019-12-27 06:19 | NUR ---
Problems reprioritized. Patient report given, questions answered & plan of care reviewed with Sandy AGUILERA.
--- NOTE | 2019-12-27 06:26 | NUR ---
Problems reprioritized. Patient report given, questions answered & plan of care reviewed with Rosa Maria AGUILERA. Addendum: 12/27/19 at 0628 by Venice Griffiths RN Duplicate, clarification of notes. Report given to Sandy AGUILERA.
--- NOTE | 2019-12-27 06:33 | NUR ---
Patient in room [facility]. I have received report from ALE Millard and had the opportunity to ask questions and assume patient care.
[2019-12-27 07:00] VITALS: BP 139/81
[2019-12-27] MEDS: mineral oil/petrolatum, white cream 113gm jar TP SCH ×2 (08:00→19:40)
[2019-12-27] MEDS: lactose-reduced food (Ensure Enlive) - 237ml bottle PO SCH ×3 (08:00→18:00)
[2019-12-27] MEDS: divalproex sod 125mg sprinkle cap PO SCH ×3 (08:00→17:55)
[2019-12-27 11:00] VITALS: BP 146/69
--- NOTE | 2019-12-27 11:07 | NUR ---
Reassessment: Pt intake increased to 50-75% since last nutrition assessment (12/21), and continues with feeder. PO intake of ONS fluctuates, documented with 25-50%. Overall pt continues meeting estimated nutrient needs with combined PO intake of meals and ONS. LBM 12/21, PRN bowel care available; discussed with dietary to send prune juice with next meal to assist with bowel regularity. Will continue to follow and monitor need for further nutrition intervention. Recommendations: 1) Continue MM5/mechanical soft grind all diet with thin liquids per ST recs 2) Assist with meals; encourage PO intake; appetite stimulant if MD agreeable 3) Yogurt q breakfast, Ensure pudding q lunch, and smoothie TID 4) Ensure Enlive TIDWM 5) Routine bowel care 6) Scaled weight this admit Addendum: 12/27/19 at [address] Amended: Links added. Addendum: 12/27/19 at [address] I have reviewed and agree with note by Microwave Technician. Florencia Roldan, RD
[2019-12-27] MEDS: atenolol 25mg tablet PO SCH (13:10)
--- NOTE | 2019-12-27 18:02 | NUR ---
Problems reprioritized. Patient report given, questions answered & plan of care reviewed with ALE Esteban.
--- NOTE | 2019-12-27 18:05 | NUR ---
Patient in room [facility]. I have received report from LEIGH AGUILERA and had the opportunity to ask questions and assume patient care. Addendum: 12/27/19 at 1850 by Eulalia Navas RN Amended: Links added.
[2019-12-27 19:15] VITALS: BP 118/68
[2019-12-27] MEDS: lactobacillus rhamnosus 10,000 MMU CELLS/CAPSULE PO SCH (19:35)
[2019-12-27] MEDS: baclofen 10mg tablet PO PRN (19:35)
[2019-12-27] MEDS: acetaminophen 325mg tablet PO PRN (19:35)
[2019-12-27] MEDS: risperiDONE 2mg tablet PO SCH (20:47)
[2019-12-27] MEDS: NICOTINE POLACRILEX 2 MG LOZENGE BC PRN (20:48)
--- NOTE | 2019-12-28 00:25 | NUR ---
PT REFUSED MIDNIGHT VITALS Addendum: 12/28/19 at 0152 by Eulalia Nvaas RN Amended: Links added.
--- NOTE | 2019-12-28 01:06 | NUR ---
PT RESTING WITHOUT CHANGES AT THIS TIME. REF VITALS TO BE DONE AT MIDNIGHT AND REFUSED EARLIER HER EURERN CREAM TO DRY SKIN ON FACE AND LEGS BILAT.
--- NOTE | 2019-12-28 03:30 | NUR ---
INC OF URINE UP TO BEDSIDE COMMODE WITH 2 RN'S AND SKIN CARE DONE WITH HER PROTEST AND ASSISTED BACK INTO BED AFTER LIEN CHANGED AND THEN WARM BLANKETS APPLIED AND FLOOR CLEANED PT HAD SPILL ENSURE ON THE FLOOR. EUCERN CREAM APPLIED TO HER FEET AT THIS TIME. REFUSED HER FACE TO BE DONE.
[2019-12-28] MEDS: acetaminophen 325mg tablet PO PRN ×2 (04:04→18:59)
--- NOTE | 2019-12-28 04:06 | NUR ---
medicated for shoulder pain with tylenol for comfort.
--- NOTE | 2019-12-28 04:55 | NUR ---
warm pack to neck for comfort.
--- NOTE | 2019-12-28 05:26 | NUR ---
pt repositioned in bed for comfort.
--- NOTE | 2019-12-28 05:45 | NUR ---
PT ASSISTED UP TO BEDSIDE COMMODE TO VOID THEN STATED SHE WANTED WANTED UP IN THE CHAIR.
--- NOTE | 2019-12-28 06:38 | NUR ---
Problems reprioritized. Patient report given, questions answered & plan of care reviewed with ELLA AGUILERA. Addendum: 12/28/19 at 0639 by Eulalia Navas RN Amended: Links added.
[2019-12-28 07:00] VITALS: BP 154/82
--- NOTE | 2019-12-28 07:29 | NUR ---
Patient in room [facility]. I have received report from SHARMILA AGUILERA and had the opportunity to ask questions and assume patient care.
[2019-12-28] MEDS: lactose-reduced food (Ensure Enlive) - 237ml bottle PO SCH ×3 (08:00→11:03)
[2019-12-28] MEDS: atenolol 25mg tablet PO SCH ×2 (08:00→10:59)
[2019-12-28 11:00] VITALS: BP 83/47
[2019-12-28] MEDS: lactobacillus rhamnosus 10,000 MMU CELLS/CAPSULE PO SCH ×2 (11:00→18:58)
[2019-12-28] MEDS: mineral oil/petrolatum, white cream 113gm jar TP SCH ×2 (11:01→20:00)
[2019-12-28] MEDS: divalproex sod 125mg sprinkle cap PO SCH ×3 (11:02→17:03)
--- NOTE | 2019-12-28 17:53 | NUR ---
Problems reprioritized. Patient report given, questions answered & plan of care reviewed with SHARMILA AGUILERA.
--- NOTE | 2019-12-28 18:41 | NUR ---
Patient in room [facility]. I have received report from ELLA AGUILERA and had the opportunity to ask questions and assume patient care. Addendum: 12/28/19 at 1842 by Eulalia Navas RN Amended: Links added.
[2019-12-28] MEDS: baclofen 10mg tablet PO PRN (18:59)
[2019-12-28] MEDS: risperiDONE 2mg tablet PO SCH (18:59)
[2019-12-28 19:00] VITALS: BP 145/73
--- NOTE | 2019-12-28 19:15 | NUR ---
PT MEDICATED FOR PAIN AT THIS TIME. dAUGHTER CALLED AND TALKED TO HER .PT NOT IN A REAL TALKATIVE MOOD STATED HER BACK HURT AND POSITIONED TO COMFORT.
--- NOTE | 2019-12-28 21:00 | NUR ---
PT DOZED OFF APPEARS COMFORTABLE AT THIS TIME.
--- NOTE | 2019-12-29 01:00 | NUR ---
RESTING EYES CLOSED WITHOUT CHANGES AT THIS TIME.
--- NOTE | 2019-12-29 03:00 | NUR ---
AWOKE INC OF URINE SKIN CARE DONE WITH LIEN GOWN CHANGED. PT TOLERATED WELL. WARM BLANKET APPLIED AND PT DOZED BACK OFF TO SLEEP.
--- NOTE | 2019-12-29 05:07 | NUR ---
resting eyes closed without changes at this time.
--- NOTE | 2019-12-29 06:13 | NUR ---
Patient in room [facility]. I have received report from SHARMILA AGUILERA and had the opportunity to ask questions and assume patient care.
--- NOTE | 2019-12-29 06:37 | NUR ---
Problems reprioritized. Patient report given, questions answered & plan of care reviewed with CAROLINA AGUILERA. Addendum: 12/29/19 at 0637 by Eulalia Navas RN Amended: Links added.
[2019-12-29 07:32] VITALS: BP 154/80
[2019-12-29] MEDS: lactose-reduced food (Ensure Enlive) - 237ml bottle PO SCH ×3 (08:00→18:21)
[2019-12-29] MEDS: divalproex sod 125mg sprinkle cap PO SCH ×3 (08:00→21:02)
[2019-12-29] MEDS: lactobacillus rhamnosus 10,000 MMU CELLS/CAPSULE PO SCH ×2 (12:54→21:02)
[2019-12-29] MEDS: atenolol 25mg tablet PO SCH (12:56)
[2019-12-29] MEDS: mineral oil/petrolatum, white cream 113gm jar TP SCH ×2 (12:57→20:00)
--- NOTE | 2019-12-29 18:34 | NUR ---
Problems reprioritized. Patient report given, questions answered & plan of care reviewed with SHARMILA AGUILERA.
--- NOTE | 2019-12-29 18:50 | NUR ---
Patient in room [facility]. I have received report from CAROLINA AGUILERA and had the opportunity to ask questions and assume patient care. Addendum: 12/29/19 at 1850 by Eulalia Navas RN Amended: Links added.
[2019-12-29 19:00] VITALS: BP 138/80
[2019-12-29] MEDS: acetaminophen 325mg tablet PO PRN (21:03)
[2019-12-29] MEDS: baclofen 10mg tablet PO PRN (21:03)
[2019-12-29] MEDS: risperiDONE 2mg tablet PO SCH (21:04)
--- NOTE | 2019-12-29 21:45 | NUR ---
pt inc of urine then up to bedside commode to for stool and tolerated fair. after clean up then assisted back to bed and tolerated well. pt positioned to comfort tolerated well.
--- NOTE | 2019-12-29 23:10 | NUR ---
pt resting eyes closed without s&s of distress.
--- NOTE | 2019-12-30 06:04 | NUR ---
Problems reprioritized. Patient report given, questions answered & plan of care reviewed with CAROLINA AGUILERA. Addendum: 12/30/19 at 0605 by Eulalia Navas RN Amended: Links added.
--- NOTE | 2019-12-30 06:35 | NUR ---
Patient in room [facility]. I have received report from Eulalia AGUILERA and had the opportunity to ask questions and assume patient care.
[2019-12-30] MEDS: lactose-reduced food (Ensure Enlive) - 237ml bottle PO SCH ×3 (08:00→18:14)
[2019-12-30] MEDS: divalproex sod 125mg sprinkle cap PO SCH ×3 (08:00→17:30)
[2019-12-30 08:27] VITALS: BP 132/75
[2019-12-30] MEDS: lactobacillus rhamnosus 10,000 MMU CELLS/CAPSULE PO SCH ×2 (10:52→20:01)
[2019-12-30] MEDS: baclofen 10mg tablet PO PRN (10:53)
[2019-12-30] MEDS: mineral oil/petrolatum, white cream 113gm jar TP SCH ×2 (10:57→20:09)
[2019-12-30] MEDS: atenolol 25mg tablet PO SCH (10:57)
[2019-12-30] MEDS: acetaminophen 325mg tablet PO PRN (13:13)
--- NOTE | 2019-12-30 18:24 | NUR ---
I have received report from Stephen AGUILERA and had the opportunity to ask questions and assume patient care.
--- NOTE | 2019-12-30 18:33 | NUR ---
Problems reprioritized. Patient report given, questions answered & plan of care reviewed with DIAMANTE AGUILERA.
[2019-12-30 20:00] VITALS: BP 185/110
[2019-12-30] MEDS: risperiDONE 2mg tablet PO SCH (20:01)
[2019-12-30 21:00] VITALS: BP 143/69
--- NOTE | 2019-12-31 06:42 | NUR ---
Problems reprioritized. Patient report given, questions answered & plan of care reviewed with Claribel AGUILERA.
--- NOTE | 2019-12-31 07:03 | NUR ---
Patient in room [facility]. I have received report from ana AGUILERA and had the opportunity to ask questions and assume patient care.
[2019-12-31 08:00] VITALS: BP 139/78
[2019-12-31] MEDS: mineral oil/petrolatum, white cream 113gm jar TP SCH ×2 (08:00→20:00)
[2019-12-31] MEDS: lactose-reduced food (Ensure Enlive) - 237ml bottle PO SCH ×3 (08:00→18:01)
[2019-12-31] MEDS: divalproex sod 125mg sprinkle cap PO SCH ×3 (09:09→17:41)
[2019-12-31] MEDS: lactobacillus rhamnosus 10,000 MMU CELLS/CAPSULE PO SCH ×2 (09:09→20:11)
[2019-12-31] MEDS: atenolol 25mg tablet PO SCH (09:12)
--- NOTE | 2019-12-31 18:49 | NUR ---
pleasant day with patient tolerated 75% of each meal, calm and compliant with care. VSS. No complaints. report given to ana AGUILERA
--- NOTE | 2019-12-31 19:13 | NUR ---
I have received report from Claribel AGUILERA and had the opportunity to ask questions and assume patient care.
[2019-12-31 20:00] VITALS: BP 114/68
[2019-12-31] MEDS: risperiDONE 2mg tablet PO SCH (20:11)
--- NOTE | 2020-01-01 06:30 | NUR ---
Patient in room [facility]. I have received report from ALE Banerjee, and had the opportunity to ask questions and assume patient care.
--- NOTE | 2020-01-01 06:38 | NUR ---
Problems reprioritized. Patient report given, questions answered & plan of care reviewed with Zenobia AGUILERA.
[2020-01-01 07:51] VITALS: BP 140/79
[2020-01-01] MEDS: lactose-reduced food (Ensure Enlive) - 237ml bottle PO SCH ×3 (08:00→18:00)
[2020-01-01] MEDS: mineral oil/petrolatum, white cream 113gm jar TP SCH ×3 (08:00→19:47)
--- NOTE | 2020-01-01 09:00 | NUR ---
Pt's fingernails are extremely long and unable to thoroughly clean. WOC consult placed, ALE Westfall notified.
[2020-01-01] MEDS: lactobacillus rhamnosus 10,000 MMU CELLS/CAPSULE PO SCH ×2 (10:17→19:47)
[2020-01-01] MEDS: divalproex sod 125mg sprinkle cap PO SCH ×3 (10:18→17:31)
[2020-01-01] MEDS: atenolol 25mg tablet PO SCH (10:21)
--- NOTE | 2020-01-01 13:43 | NUR ---
Pt refused. Addendum: 01/01/20 at 1345 by Zenobia Ocampo RN Amended: Links added.
--- NOTE | 2020-01-01 15:15 | NUR ---
Reassessment: Patient's PO intake continues to fluctuate, documented with average 50-75% PO intake with some 0% PO intake. Pending documentation of PO intake for today and pt documented with declining PO intake from 75% down to 25% yesterday (12/30), though per RN notes pt consumed 75% of all meals. PO intake of ONS down to 50% yesterday, pending documentation of ONS acceptance for today. Pt remains A/O x 1 and confused, receiving assistance at meals. LBM 12/30. No further nutrition intervention implemented at this time. Will continue to follow. Recommendations: 1) Continue MM5/mechanical soft grind all diet with thin liquids per ST recs 2) Assist with meals; encourage PO intake; appetite stimulant if MD agreeable 3) Yogurt q breakfast, Ensure pudding q lunch, and smoothie TID 4) Ensure Enlive TIDWM 5) Routine bowel care 6) Scaled weight this admit Addendum: 01/01/20 at [address] Amended: Links added.
--- NOTE | 2020-01-01 17:10 | NUR ---
Patient report given to ALE Membreno, w/ questions answered & plan of care reviewed.
[2020-01-01 18:00] VITALS: BP 133/79
[2020-01-01] MEDS: acetaminophen 325mg tablet PO PRN (18:30)
[2020-01-01] MEDS: baclofen 10mg tablet PO PRN (19:47)
[2020-01-01] MEDS: risperiDONE 2mg tablet PO SCH (19:47)
[2020-01-01 23:36] VITALS: BP 118/67
--- NOTE | 2020-01-02 06:11 | NUR ---
Problems reprioritized. Patient report given, questions answered & plan of care reviewed with Reynaldo AGUILERA RN. Addendum: 01/02/20 at 0611 by Temi Tompkins RN Amended: Links added.
--- NOTE | 2020-01-02 06:54 | NUR ---
Patient in room [facility]. I have received report from Temi AGUILERA and had the opportunity to ask questions and assume patient care.
--- NOTE | 2020-01-02 06:55 | NUR ---
Patient in room [facility]. I have received report from Temi AGUILERA and had the opportunity to ask questions and assume patient care.
[2020-01-02 07:00] VITALS: BP 130/61
--- NOTE | 2020-01-02 09:23 | NUR ---
Billing Adjudicator reported to me that patient refused blood draw today. Patient currently sleeping at this time
[2020-01-02] MEDS: lactose-reduced food (Ensure Enlive) - 237ml bottle PO SCH ×3 (09:25→18:25)
[2020-01-02] MEDS: atenolol 25mg tablet PO SCH (09:25)
[2020-01-02] MEDS: lactobacillus rhamnosus 10,000 MMU CELLS/CAPSULE PO SCH ×2 (09:25→20:00)
[2020-01-02] MEDS: divalproex sod 125mg sprinkle cap PO SCH ×3 (09:25→16:59)
[2020-01-02] MEDS: mineral oil/petrolatum, white cream 113gm jar TP SCH ×2 (09:25→20:00)
--- NOTE | 2020-01-02 09:26 | NUR ---
Patient refused to take all her scheduled meds, she yelled at me saying "stop it!"
[2020-01-02 11:00] VITALS: BP 114/62
[2020-01-02] MEDS: acetaminophen 325mg tablet PO PRN (11:53)
[2020-01-02 18:00] VITALS: BP 120/80
--- NOTE | 2020-01-02 18:06 | NUR ---
Problems reprioritized. Patient report given, questions answered & plan of care reviewed with Ye AGUILERA.
[2020-01-02] MEDS: risperiDONE 2mg tablet PO SCH (20:33)
--- NOTE | 2020-01-03 06:53 | NUR ---
Called lab to see if they could attempt to draw the labs that were ordered yesterday but apparently refused by pt.
[2020-01-03 07:00] VITALS: BP 138/74
--- NOTE | 2020-01-03 07:20 | NUR ---
[employer] notified this RN that pt. refused labs.
[2020-01-03] MEDS: lactose-reduced food (Ensure Enlive) - 237ml bottle PO SCH ×3 (08:00→18:00)
--- NOTE | 2020-01-03 09:08 | NUR ---
Pt. re-approached about have her labs drawn by primary RN and construction craft laborer. Pt. refused lab draw stating, "I just can't handle that. I have passed out before from having that done. I just cant do it."
[2020-01-03] MEDS: lactobacillus rhamnosus 10,000 MMU CELLS/CAPSULE PO SCH ×2 (09:18→20:26)
[2020-01-03] MEDS: divalproex sod 125mg sprinkle cap PO SCH ×3 (09:18→17:42)
[2020-01-03] MEDS: atenolol 25mg tablet PO SCH (09:18)
[2020-01-03] MEDS: mineral oil/petrolatum, white cream 113gm jar TP SCH ×2 (09:19→20:36)
--- NOTE | 2020-01-03 12:00 | NUR ---
MADE AWARE PT. IS REFUSING LAB DRAWS. NO NEW ORDERS AT THIS TIME.
[2020-01-03 18:00] VITALS: BP 113/66
--- NOTE | 2020-01-03 18:00 | NUR ---
As charge nurse I have received report from Ania AGUILERA and had the opportunity to ask questions and assume patient care with nursing executive Ceja. Addendum: 01/04/20 at 0038 by Temi Tompkins RN Amended: Links added.
--- NOTE | 2020-01-03 18:12 | NUR ---
GAVE REPORT TO SCOT AGUILERA.
[2020-01-03] MEDS: risperiDONE 2mg tablet PO SCH (20:27)
[2020-01-03] MEDS: baclofen 10mg tablet PO PRN (20:27)
--- NOTE | 2020-01-04 05:40 | NUR ---
Student documentation: I have reviewed and agree with all interventions, assessments performed and documented by Student Medication Administration: For this medication-pass time frame, all medication were reviewed, dispensed, administered and documented per hospital policy . Addendum: 01/04/20 at 0541 by Temi Tompkins RN Amended: Links added.
--- NOTE | 2020-01-04 05:58 | NUR ---
Problems reprioritized. Patient report given, questions answered & plan of care reviewed with Ania AGUILERA. Addendum: 01/04/20 at 0559 by Temi Tompkins RN Amended: Links added.
[2020-01-04 07:02] VITALS: BP 119/64
[2020-01-04] MEDS: lactose-reduced food (Ensure Enlive) - 237ml bottle PO SCH ×3 (08:00→17:49)
[2020-01-04] MEDS: divalproex sod 125mg sprinkle cap PO SCH ×3 (10:34→17:57)
[2020-01-04] MEDS: lactobacillus rhamnosus 10,000 MMU CELLS/CAPSULE PO SCH (10:35)
[2020-01-04] MEDS: mineral oil/petrolatum, white cream 113gm jar TP SCH ×2 (10:35→18:45)
[2020-01-04] MEDS: atenolol 25mg tablet PO SCH (10:35)
[2020-01-04] MEDS: baclofen 10mg tablet PO PRN (12:00)
[2020-01-04] MEDS: acetaminophen 325mg tablet PO PRN (12:04)
--- NOTE | 2020-01-04 19:01 | NUR ---
Gave report to Snow ore charger nurse.
--- NOTE | 2020-01-04 19:30 | NUR ---
Ania AGUILERA assisted w/ katebacarlo and gave report. questions asked and answered, care of patient assumed by myself.
[2020-01-04 19:31] VITALS: BP 140/63
[2020-01-05] MEDS: lactobacillus rhamnosus 10,000 MMU CELLS/CAPSULE PO SCH ×3 (00:46→20:34)
[2020-01-05] MEDS: risperiDONE 2mg tablet PO SCH ×2 (00:46→20:34)
--- NOTE | 2020-01-05 00:51 | NUR ---
Meds Risperidone and lactobacillus given late due to patient refusing and sleeping. Awake at this time and meds given w/ water. Refuses to turn to other side at this time. Will turn at next waking!
--- NOTE | 2020-01-05 06:15 | NUR ---
Patient in room [facility]. I have received report from July and had the opportunity to ask questions and assume patient care.
--- NOTE | 2020-01-05 06:30 | NUR ---
Report given to Keri r/kenneth patient care this AM, questions asked and answered, care assumed by Keri AGUILERA
[2020-01-05 07:00] VITALS: BP 132/68
[2020-01-05] MEDS: lactose-reduced food (Ensure Enlive) - 237ml bottle PO SCH ×3 (08:00→18:00)
--- NOTE | 2020-01-05 08:22 | NUR ---
Pt remains asleep this morning. Resp. even and unlabored.
--- NOTE | 2020-01-05 09:20 | NUR ---
continues to sleep. Bed alarm on since 629.
[2020-01-05] MEDS: atenolol 25mg tablet PO SCH (10:45)
[2020-01-05] MEDS: divalproex sod 125mg sprinkle cap PO SCH ×3 (10:45→17:30)
--- NOTE | 2020-01-05 10:45 | NUR ---
awake. given morning meds by [facility] student w/ instructor. assisted with breakfast. ate 100%, voided on BSC, wants to take a nap now.
[2020-01-05] MEDS: mineral oil/petrolatum, white cream 113gm jar TP SCH ×2 (10:51→20:00)
--- NOTE | 2020-01-05 13:15 | NUR ---
awake. had large loose stool in bed. taken to shower w/ Blanca PCT. creams applied after showered. In bed, positioned onto Rt side. Not hungry for lunch at this time.
[2020-01-05] MEDS: acetaminophen 325mg tablet PO PRN (14:08)
--- NOTE | 2020-01-05 14:25 | NUR ---
F/u: Pt PO improved today 100% breakfast and lunch w/ fluctuating ~50% prior PO in addition to ~50-75% ensure enlive TIDWM meeting needs. LBM 01/01. BILLY recommended scaled wt this admit since none at this time. Will continue to monitor. Recommendations: 1) Continue MM5/mechanical soft grind all diet with thin liquids per ST recs 2) Assist with meals; encourage PO intake; appetite stimulant if MD agreeable 3) Yogurt q breakfast, Ensure pudding q lunch, and smoothie TID 4) Ensure Enlive TIDWM 5) Routine bowel care 6) Scaled weight this admit Addendum: 01/05/20 at [address] Amended: Links added.
--- NOTE | 2020-01-05 18:00 | NUR ---
Patient in room [facility]. I have received report from Keri AGUILERA and had the opportunity to ask questions and assume patient care.
--- NOTE | 2020-01-05 18:15 | NUR ---
Problems reprioritized. Patient report given, questions answered & plan of care reviewed with Snow AGUILERA.
[2020-01-05 20:00] VITALS: BP 106/68
[2020-01-06] MEDS: NICOTINE POLACRILEX 2 MG LOZENGE BC PRN (02:11)
--- NOTE | 2020-01-06 06:25 | NUR ---
Problems reprioritized. Patient report given, questions answered & plan of care reviewed with Stephen RN.
--- NOTE | 2020-01-06 07:09 | NUR ---
Patient in room [facility]. I have received report from Maura AGUILERA and had the opportunity to ask questions and assume patient care.
[2020-01-06] MEDS: lactose-reduced food (Ensure Enlive) - 237ml bottle PO SCH ×3 (08:00→18:03)
[2020-01-06] MEDS: baclofen 10mg tablet PO PRN (09:14)
[2020-01-06] MEDS: lactobacillus rhamnosus 10,000 MMU CELLS/CAPSULE PO SCH ×2 (09:14→21:05)
[2020-01-06] MEDS: divalproex sod 125mg sprinkle cap PO SCH ×3 (09:15→18:11)
[2020-01-06] MEDS: atenolol 25mg tablet PO SCH (09:17)
[2020-01-06] MEDS: mineral oil/petrolatum, white cream 113gm jar TP SCH ×2 (09:17→20:00)
[2020-01-06] MEDS: acetaminophen 325mg tablet PO PRN (11:11)
[2020-01-06 13:02] VITALS: BP 154/87
--- NOTE | 2020-01-06 18:56 | NUR ---
Problems reprioritized. Patient report given, questions answered & plan of care reviewed with Maura AGUILERA.
[2020-01-06 20:00] VITALS: BP 136/72
[2020-01-06] MEDS: risperiDONE 2mg tablet PO SCH (21:05)
--- NOTE | 2020-01-06 22:52 | NUR ---
I have received report from Maura AGUILERA and had the opportunity to ask questions and assume patient care.
[2020-01-07] MEDS: NICOTINE POLACRILEX 2 MG LOZENGE BC PRN (01:02)
--- NOTE | 2020-01-07 06:31 | NUR ---
Patient in room [facility]. I have received report from Lavonne AGUILERA and had the opportunity to ask questions and assume patient care.
--- NOTE | 2020-01-07 06:38 | NUR ---
Problems reprioritized. Patient report given, questions answered & plan of care reviewed with Sil AGUILERA.
[2020-01-07 07:00] VITALS: BP 104/66
[2020-01-07] MEDS: lactose-reduced food (Ensure Enlive) - 237ml bottle PO SCH ×3 (08:00→18:51)
[2020-01-07] MEDS: lactobacillus rhamnosus 10,000 MMU CELLS/CAPSULE PO SCH ×2 (10:04→20:00)
[2020-01-07] MEDS: mineral oil/petrolatum, white cream 113gm jar TP SCH ×2 (10:04→20:00)
[2020-01-07] MEDS: baclofen 10mg tablet PO PRN (10:04)
[2020-01-07] MEDS: atenolol 25mg tablet PO SCH (10:04)
[2020-01-07] MEDS: divalproex sod 125mg sprinkle cap PO SCH ×3 (10:06→17:30)
[2020-01-07 18:00] VITALS: BP 125/72
--- NOTE | 2020-01-07 18:31 | NUR ---
Problems reprioritized. Patient report given, questions answered & plan of care reviewed with Lavonne AGUILERA.
[2020-01-07] MEDS: acetaminophen 325mg tablet PO PRN (18:51)
--- NOTE | 2020-01-07 18:59 | NUR ---
I have received report from Barbi AGUILERA and had the opportunity to ask questions and assume patient care.
[2020-01-07] MEDS: risperiDONE 2mg tablet PO SCH (21:00)
--- NOTE | 2020-01-08 06:25 | NUR ---
Patient in room [facility]. I have received report from CHE AGUILERA and had the opportunity to ask questions and assume patient care.
--- NOTE | 2020-01-08 06:28 | NUR ---
Problems reprioritized. Patient report given, questions answered & plan of care reviewed with Alley AGUILERA.
[2020-01-08 07:00] VITALS: BP 123/67
[2020-01-08] MEDS: divalproex sod 125mg sprinkle cap PO SCH ×3 (08:00→17:30)
[2020-01-08] MEDS: lactose-reduced food (Ensure Enlive) - 237ml bottle PO SCH ×3 (08:00→18:00)
[2020-01-08] MEDS: mineral oil/petrolatum, white cream 113gm jar TP SCH ×2 (08:00→20:00)
--- NOTE | 2020-01-08 09:07 | NUR ---
READ AND ACKNOWLEDGED WOUND CARE AND SKIN CARE ORDERS. WILL ATTEMPT WHEN PT IS AWAKE.
--- NOTE | 2020-01-08 09:25 | NUR ---
PT IS STILL SLEEPING. PER ORDERED BY HOSPITALIST, MEDS NOT PASSED YET. WILL PASS WHEN SHE WAKES.
[2020-01-08] MEDS: lactobacillus rhamnosus 10,000 MMU CELLS/CAPSULE PO SCH ×2 (11:42→21:54)
[2020-01-08] MEDS: acetaminophen 325mg tablet PO PRN (11:43)
[2020-01-08] MEDS: atenolol 25mg tablet PO SCH (11:44)
--- NOTE | 2020-01-08 18:14 | NUR ---
Patient in room [facility]. I have received report from COURTNEY AGUILERA and had the opportunity to ask questions and assume patient care.
--- NOTE | 2020-01-08 18:30 | NUR ---
Patient in room [facility]. I have received report from ALE Hager and had the opportunity to ask questions and assume patient care. Pt assisted up to chair x1 margaux, eloisa unit on. Pt eating dinner. Addendum: 01/08/20 at 1939 by Steve Buchanan RN Amended: Links added.
[2020-01-08 19:00] VITALS: BP 150/77
--- NOTE | 2020-01-08 20:30 | NUR ---
Back to bed. Addendum: 01/08/20 at 2357 by Steve Buchanan RN Amended: Links added.
[2020-01-08] MEDS: risperiDONE 2mg tablet PO SCH (21:53)
[2020-01-08] MEDS: baclofen 10mg tablet PO PRN (21:54)
--- NOTE | 2020-01-09 06:31 | NUR ---
Patient in room [facility]. I have received report from tony barrera and had the opportunity to ask questions and assume patient care.
[2020-01-09 07:00] VITALS: BP 141/81
[2020-01-09] MEDS: mineral oil/petrolatum, white cream 113gm jar TP SCH ×2 (08:00→22:08)
[2020-01-09] MEDS: lactose-reduced food (Ensure Enlive) - 237ml bottle PO SCH ×3 (08:00→18:23)
[2020-01-09] MEDS: lactobacillus rhamnosus 10,000 MMU CELLS/CAPSULE PO SCH ×2 (08:59→22:08)
[2020-01-09] MEDS: divalproex sod 125mg sprinkle cap PO SCH ×3 (08:59→17:43)
[2020-01-09] MEDS: atenolol 25mg tablet PO SCH (09:00)
[2020-01-09] MEDS: acetaminophen 325mg tablet PO PRN (09:00)
[2020-01-09] MEDS: baclofen 10mg tablet PO PRN (10:36)
[2020-01-09 11:00] VITALS: BP 109/40
[2020-01-09 18:00] VITALS: BP 154/68
--- NOTE | 2020-01-09 18:22 | NUR ---
Problems reprioritized. Patient report given, questions answered & plan of care reviewed with PRUDENCE RN.
[2020-01-09] MEDS: risperiDONE 2mg tablet PO SCH (22:08)
--- NOTE | 2020-01-10 06:19 | NUR ---
Problems reprioritized. Patient report given, questions answered & plan of care reviewed with CONNIE AGUILERA. Patient resting.
[2020-01-10] MEDS: mineral oil/petrolatum, white cream 113gm jar TP SCH ×2 (08:00→21:38)
[2020-01-10] MEDS: lactose-reduced food (Ensure Enlive) - 237ml bottle PO SCH ×3 (08:00→18:03)
[2020-01-10 08:35] VITALS: BP 132/76
[2020-01-10] MEDS: lactobacillus rhamnosus 10,000 MMU CELLS/CAPSULE PO SCH ×2 (09:52→21:38)
[2020-01-10] MEDS: atenolol 25mg tablet PO SCH (09:53)
[2020-01-10] MEDS: divalproex sod 125mg sprinkle cap PO SCH ×3 (09:54→17:48)
[2020-01-10 11:00] VITALS: BP 107/66
--- NOTE | 2020-01-10 18:29 | NUR ---
Problems reprioritized. Patient report given, questions answered & plan of care reviewed with prudence rn.
--- NOTE | 2020-01-10 18:47 | NUR ---
Patient in room [facility]. I have received report from CONNIE AGUILERA and had the opportunity to ask questions and assume patient care.
[2020-01-10] MEDS: risperiDONE 2mg tablet PO SCH (21:38)
--- NOTE | 2020-01-10 23:38 | NUR ---
PATIENT DECLINED TO HAVE VITAL SIGNS TAKEN
[2020-01-11] VITALS: BP 122/58
--- NOTE | 2020-01-11 06:14 | NUR ---
Patient in room [facility]. I have received report from ALE Hollingsworth and had the opportunity to ask questions and assume patient care.
--- NOTE | 2020-01-11 06:15 | NUR ---
Problems reprioritized. Patient report given, questions answered & plan of care reviewed with ANA AGUILERA.
[2020-01-11] MEDS: mineral oil/petrolatum, white cream 113gm jar TP SCH ×2 (08:00→20:00)
[2020-01-11] MEDS: lactose-reduced food (Ensure Enlive) - 237ml bottle PO SCH ×3 (08:00→17:40)
[2020-01-11] MEDS: divalproex sod 125mg sprinkle cap PO SCH ×3 (09:50→16:51)
[2020-01-11] MEDS: lactobacillus rhamnosus 10,000 MMU CELLS/CAPSULE PO SCH ×2 (09:51→19:44)
[2020-01-11] MEDS: atenolol 25mg tablet PO SCH (09:54)
[2020-01-11 10:04] VITALS: BP 120/79
--- NOTE | 2020-01-11 18:24 | NUR ---
Problems reprioritized. Patient report given, questions answered & plan of care reviewed with ALE Romero.
--- NOTE | 2020-01-11 18:35 | NUR ---
Patient in room [facility]. I have received report from Faith AGUILERA and had the opportunity to ask questions and assume patient care.
[2020-01-11] MEDS: risperiDONE 2mg tablet PO SCH (19:45)
[2020-01-11] MEDS: acetaminophen 325mg tablet PO PRN (19:45)
[2020-01-11 20:00] VITALS: BP 122/64
[2020-01-12] MEDS: acetaminophen 325mg tablet PO PRN (03:52)
--- NOTE | 2020-01-12 06:35 | NUR ---
Patient in room [facility]. I have received report from Heather AGUILERA and had the opportunity to ask questions and assume patient care.
--- NOTE | 2020-01-12 06:45 | NUR ---
Problems reprioritized. Patient report given, questions answered & plan of care reviewed with Marybel AGUILERA.
[2020-01-12 06:57] VITALS: BP 125/75
[2020-01-12] MEDS: divalproex sod 125mg sprinkle cap PO SCH ×3 (07:25→17:34)
[2020-01-12] MEDS: lactobacillus rhamnosus 10,000 MMU CELLS/CAPSULE PO SCH ×2 (07:26→20:00)
[2020-01-12] MEDS: mineral oil/petrolatum, white cream 113gm jar TP SCH ×2 (07:26→20:00)
[2020-01-12] MEDS: lactose-reduced food (Ensure Enlive) - 237ml bottle PO SCH ×3 (07:26→18:00)
[2020-01-12] MEDS: atenolol 25mg tablet PO SCH (07:26)
[2020-01-12] MEDS: baclofen 10mg tablet PO PRN (10:34)
--- NOTE | 2020-01-12 15:58 | NUR ---
Reassessment: Pt PO ~75% meals w/ 25-50% ONS fluctuating overall meeting needs. LBM 01/08. BILLY recommended scaled wt this admit since none at this time. Will continue to monitor. Recommendations: 1) Continue MM5/mechanical soft grind all diet with thin liquids per ST recs 2) Assist with meals; encourage PO intake; appetite stimulant if MD agreeable 3) Yogurt q breakfast, Ensure pudding q lunch, and smoothie TID 4) Ensure Enlive TIDWM 5) Routine bowel care 6) Scaled weight this admit Addendum: 01/12/20 at [address] Amended: Links added.
--- NOTE | 2020-01-12 18:05 | NUR ---
Problems reprioritized. Patient report given, questions answered & plan of care reviewed with Ye AGUILERA.
[2020-01-12 20:00] VITALS: BP 135/75
[2020-01-12] MEDS: risperiDONE 2mg tablet PO SCH (21:00)
--- NOTE | 2020-01-13 06:50 | NUR ---
Patient in room [facility]. I have received report from Ye AGUILERA and had the opportunity to ask questions and assume patient care.
[2020-01-13] MEDS: mineral oil/petrolatum, white cream 113gm jar TP SCH ×2 (08:00→20:00)
[2020-01-13] MEDS: lactose-reduced food (Ensure Enlive) - 237ml bottle PO SCH ×3 (08:00→18:00)
[2020-01-13 09:09] VITALS: BP 124/68
[2020-01-13] MEDS: divalproex sod 125mg sprinkle cap PO SCH ×3 (10:38→17:22)
[2020-01-13] MEDS: lactobacillus rhamnosus 10,000 MMU CELLS/CAPSULE PO SCH ×2 (10:38→21:18)
[2020-01-13] MEDS: baclofen 10mg tablet PO PRN (10:38)
[2020-01-13] MEDS: atenolol 25mg tablet PO SCH (10:39)
[2020-01-13 18:00] VITALS: BP 134/62
--- NOTE | 2020-01-13 18:02 | NUR ---
Paper work completed for patients discharged. Faxed sent to facility with confirmation received, all paper work in patients chart. 21 day MRSA swab needed on discharge. school supervisor time is 0800 on 01/14/2020.
--- NOTE | 2020-01-13 18:06 | NUR ---
Problems reprioritized. Patient report given, questions answered & plan of care reviewed with Lavonne AGUILERA.
[2020-01-13] MEDS: acetaminophen 325mg tablet PO PRN (21:18)
[2020-01-13] MEDS: risperiDONE 2mg tablet PO SCH (21:18)
--- NOTE | 2020-01-13 23:56 | NUR ---
I have received report from Marybel AGUILERA and had the opportunity to ask questions and assume patient care.
--- NOTE | 2020-01-14 06:23 | NUR ---
Problems reprioritized. Patient report given, questions answered & plan of care reviewed with Edyta AGUILERA.
--- NOTE | 2020-01-14 06:42 | NUR ---
Patient in room [facility]. I have received report from ALE Banerjee and had the opportunity to ask questions and assume patient care.
[2020-01-14] MEDS: divalproex sod 125mg sprinkle cap PO SCH (07:36)
[2020-01-14] MEDS: lactobacillus rhamnosus 10,000 MMU CELLS/CAPSULE PO SCH (07:36)
[2020-01-14 07:37] VITALS: BP_SYST 137
[2020-01-14] MEDS: atenolol 25mg tablet PO SCH (07:37)
[2020-01-14] MEDS: mineral oil/petrolatum, white cream 113gm jar TP SCH (07:40)
--- NOTE | 2020-01-14 09:41 | NUR ---
D/C'd in stable condition to [facility] in [place]. Pt left the hospital via [facility]. all belonging were sent with pt.
--- NOTE | 2020-01-14 11:16 | NUR ---
Report given to receiving nurse.
== END 2020-01-14 08:18 | DRG 689 ==
LOC: ER 17:57 → ED HOLD 21:02 → SUR 3N 22:50 → ORTHO 4S 12-13 15:15 → SUR 3N 12-16 02:45
PROVIDERS: ADMIT Internal Medicine; ATTEND Internal Medicine
DX: N39.0 Urinary tract infection, site not specified (principal); G93.41 Metabolic encephalopathy; Z16.24 Resistance to multiple antibiotics; F03.91 Unspecified dementia, unspecified severity, with behavioral disturbance; F05 Delirium due to known physiological condition; Z66 Do not resuscitate; B96.20 Unspecified Escherichia coli [E. coli] as the cause of diseases classified elsewhere; D64.9 Anemia, unspecified; F20.9 Schizophrenia, unspecified; Y04.8XXA Assault by other bodily force, initial encounter; I10 Essential (primary) hypertension; Z53.20 Procedure and treatment not carried out because of patient's decision for unspecified reasons; M54.2 Cervicalgia; M54.9 Dorsalgia, unspecified; M62.838 Other muscle spasm; R41.89 Other symptoms and signs involving cognitive functions and awareness; Z88.8 Allergy status to other drugs, medicaments and biological substances; Y93.89 Activity, other specified; Y92.098 Other place in other non-institutional residence as the place of occurrence of the external cause; Y99.8 Other external cause status
CPT/HCPCS: 36415; 70450; 72125; 72131; 80053; 81001; 84443; 84484; 85025; 87077; 87081; 87088; 87186; 92508; 92616; 93005; 96365; 97110; 97112; 97116; 97161; 97530; 97535; 99285; G0378; J0696; J1644; J2185; J7030